=== PATIENT | female | born 1955 | race Caucasian/White ===

== ENCOUNTER 2025-08-23 13:35 | Emergency (ER) | payer MEDICARE, SELFPAY ==
[2025-08-23] VITALS (13 sets, daily range): BP systolic 151–175; BP diastolic 88–95; PULSE 76–92; RESP 12–20; TEMP 36.4; O2SAT 95–99
--- NOTE | ~2025-08-23 | CT_ITS ---
EXAMINATION: CT brain wo con DATE: 08/23/2025 15:22 INDICATION: Altered mental status TECHNIQUE: Computed tomography (CT) of the head was performed without intravenous contrast. Sagittal and coronal reconstructions were performed. The mA was adjusted according to patient size. Iterative reconstruction technique was employed. The dose-length product was 605.33 mGy-cm. COMPARISON: None FINDINGS: There are regions of decreased attenuation of the white matter which appears to spare the overlying patino matter consistent with vasogenic edema suspicious for underlying malignancy/metastatic disease in the right temporal lobe and left cerebellar hemisphere. There are some associated mass effect upon the right side of the fourth ventricle. There are couple additional small regions of white matter hypoattenuation in the bilateral frontal lobes which could represent additional vasogenic edema or sequela of chronic small vessel ischemic disease. No acute intracranial hemorrhage, acute infarction or abnormal extra axial fluid collection. The left and right lateral ventricles and third ventricle appear relatively enlarged and with convex peripheral margins when compared with the fourth ventricle and the sulci suggesting possible secondary obstructing hydrocephalus resulting from the left cerebellar mass effect. Although suspected, no clearly defined masses identified. The orbits, paranasal sinuses and mastoid air cells are normal. IMPRESSION: 1. Regions of likely vasogenic edema in the right temporal lobe and left cerebellar hemisphere which raises suspicion for underlying occult malignancy/ metastatic disease. Correlate for history of prior malignancy and recommend further evaluation with pre and postcontrast MRI or CT. 2. Mild enlargement of the left and right lateral and the third ventricles relative to the sulci and the fourth ventricle which appears small secondary to mass effect from the left cerebral hemisphere and is concerning for obstructive hydrocephalus. Consider neurosurgical consultation. This and the above findings and recommendation were discussed with Dr. Armstrong at 3:32 PM. Reviewed, dictated and finalized at location A. IMPRESSION: 1. Regions of likely vasogenic edema in the right temporal lobe and left cerebe llar hemisphere which raises suspicion for underlying occult malignancy/ metast atic disease. Correlate for history of prior malignancy and recommend further e valuation with pre and postcontrast MRI or CT. 2. Mild enlargement of the left and right lateral and the third ventricles rela tive to the sulci and the fourth ventricle which appears small secondary to mas s effect from the left cerebral hemisphere and is concerning for obstructive hy drocephalus. Consider neurosurgical consultation. This and the above findings a nd recommendation were discussed with Dr. Armstrong at 3:32 PM.
--- NOTE | 2025-08-23 14:58 | ECG_ITS ---
Test Date: 2025-08-23 16:16:21 Measurements Intervals [place] Rate: 78 P: 24 PA: 131 QRS: -12 QRSD: 84 T: 33 QT: 339 QTc: 388 Interpretive Statements SINUS RHYTHM NONSPECIFIC T-WAVE ABNORMALITY No previous ECG available for comparison Electronically Signed On 08-23-2025 16:58:53 CDT by Mk Crane M.D.
[2025-08-23 15:09] LABS: Hematocrit 46.0 % (37.0-47.0); Hemoglobin 15.5 g/dL (12.0-15.0); Immature Granulocyte Percent A 0.3 % (0-0.5); Lymphocytes Absolute Auto 1.70 K/mm3 (0.9-3.2); Mean Corpuscular HGB Conc 33.7 g/dl (32-36); Mean Corpuscular Hemoglobin 30.6 pg (26-34); Mean Corpuscular Volume 90.7 fl (80-100); Nucleated Red Blood Cells Absolute Auto 0.000 K/mm3 (0.0-0.012); Nucleated Red Blood Cells Perc 0.0 % (0.0-0.2); Platelet Count Result 275 k/mm3 (150-375); Red Blood Count 5.07 M/mm3 (4.2-5.4); White Blood Count 11.4 K/mm3 (4.5-10.0)
[2025-08-23 15:17] LABS: Alanine Aminotransferase 19 U/L (6-35); Albumin Level 4.5 g/dL (3.5-5.1); Alkaline Phosphatase 102 U/L (38-126); Anion Gap 12 mmol/L (4-12); Aspartate Amino Transferase 21 U/L (14-36); Bilirubin,Total 1.1 mg/dL (0.2-1.3); Blood Urea Nitrogen 23 mg/dL (7-17); Calcium 9.3 mg/dL (8.4-10.2); Carbon Dioxide 27 mmol/L (22-30); Chloride 103 mmol/L (98-107); Estimated Glomerular Filt Rate > 60; Glucose 111 mg/dL (65-110); Potassium 3.8 mmol/L (3.4-5.0); Sodium 142 mmol/L (137-145); Total Protein 8.4 g/dL (6.3-8.2)
--- NOTE | 2025-08-23 15:19 | ED_ITS ---
HPI - Altered Mental Status General Chief Complaint: Altered Mental Status Stated Complaint: confused Time Seen by Provider: 08/23/25 14:42 Source: patient and family Mode of arrival: wheelchair Limitations: no limitations History of Present Illness HPI narrative: This is a 69-year-old female with no significant past medical history presents to the ED with family for concerns for altered mental status. Patient states that this morning at around 10:00 a.m., and she became dizzy and lost her balance a couple times. Per family, they report that they were told by neighbor that the patient fell in the yd and she was stumbling around unable to keep her balance. The decision was made at that time to bring the patient to the ED. patient reports she has been confused since this started. She has not seen a physician in several years and takes no medications. Denies drug use, alcohol use. No recent illnesses. Denies dysuria, hematuria, abdominal pain, fevers, chills. She is a nonsmoker. Related Data Allergies Allergy/AdvReac Type Severity Reaction Status Date / Time No Known Allergies Allergy Verified 08/23/25 13:44 Review of Systems 2 Review of Systems: Gen.: Denies fevers or chills Eyes: Denies eye pain or visual change ENT: Denies congestion Respiratory: Denies shortness of breath or cough CV: Denies chest pain or palpitations GI: Denies abdominal pain nausea, emesis or diarrhea denies burning, urgency, frequency or hematuria Musculoskeletal: Denies back pain or muscle pain Neuro: As per HPI Skin: Denies rash Except as documented, all other systems reviewed and negative Exam 2 Narrative: APPEARANCE: No acute distress, nontoxic, resting in bed EYES: EOMI HEENT: Normocephalic, atraumatic, OMM RESPIRATORY: No respiratory distress Clear to auscultation bilaterally with no rhonchi wheezing or rales. CARDIOVASCULAR: Regular rate and rhythm without murmurs rubs or gallops. ABDOMINAL: Soft, nontender, nondistended, no rebound or guarding MUSCULOSKELETAl: Moves all extremities. No clubbing, cyanosis or edema. NEURO: Awake and alert. Following commands, speech normal, no focal deficits. NIHSS 0 SKIN:: Warm, dry. No rashes lesions or abrasions PSYCHIATRIC: Normal affect/mood, Course Vital Signs Vital signs: Vital Signs Temperature 97.5 F L 08/23/25 13:40 Pulse Rate 92 08/23/25 13:40 Respiratory Rate 16 08/23/25 13:40 Blood Pressure 151/95 H 08/23/25 13:40 Pulse Oximetry 97 08/23/25 13:40 Oxygen Delivery Room Air 08/23/25 13:40 Temperature 97.5 F L 08/23/25 13:40 Pulse Rate 76 08/23/25 17:07 Respiratory Rate 14 08/23/25 17:07 Blood Pressure 165/92 H 08/23/25 17:07 Pulse Oximetry 99 08/23/25 17:07 Oxygen Delivery Room Air 08/23/25 14:44 MDM - Altered Mental Status MDM Narrative Medical decision making narrative: 69-year-old female with no significant past medical history presenting for dizziness and falls. On initial evaluation, patient was in no acute distress, afebrile, hemodynamically stable. She reportedly A/O x2 on initial arrival but was A/O x4 on my evaluation. She had no focal deficits. She had a mild leukocytosis at 11.4. CMP without significant abnormalities. COVID/flu/RSV negative. CT head showed concerns for metastases to the left cerebellar hemisphere with vasogenic edema to the left cerebellum and the right temporal lobe as well as concerns for obstructive hydrocephalus. Patient was given 10 mg of Decadron. I did discuss the case with Dr. Andujar, neurosurgery, does recommend transfer for urgent intervention. I discussed the case with Neurosurgery at [facility], Dr. Engel will accept the patient in the ED to ED transfer. I also discussed the case with Dr. Kim, , also accept the patient. Discussed with family and they are agreeable to this plan. The patient transferred in a stable condition. CRITICAL CARE Indication: Time type: intermittent I provided a total of 55 minutes of critical care excluding separately billable procedures. This includes time w/ EMS, initial bedside evaluation, reviewing old records, review of testing done while under my care, discussion w/ the family, nurses, transformation consultant and guiding the patient?s care while in the emergency department. Differential Diagnosis Differential diagnosis: Likely other (CVA, cancer, NPH, UTI) Medical Records Attestation: I reviewed the patient's medical records. Lab Data Attestation: I reviewed the patient's lab results. 08/23/25 15:01 08/23/25 15:01 Labs: Lab Results 08/23/25 Range/Units 15:01 WBC 11.4 H (4.5-10.0) K/mm3 RBC 5.07 (4.2-5.4) M/mm3 Hgb 15.5 H (12.0-15.0) g/dL Hct 46.0 (37.0-47.0) % MCV 90.7 (80-100) fl MCH 30.6 (26-34) pg MCHC 33.7 (32-36) g/dl RDW 12.2 (11.5-14.5) % Plt Count 275 (150-375) k/mm3 MPV 9.1 (7.4-10.4) fl Immature Gran % (Auto) 0.3 (0-0.5) % Neut % (Auto) 76.3 H (45.5-73.1) % Lymph % (Auto) 14.9 L (18.3-44.2) % Keith % (Auto) 7.9 (2.6-8.5) % Eos % (Auto) 0.3 (0-4.4) % Baso % (Auto) 0.3 (0.2-1.2) % Lymph # (Auto) 1.70 (0.9-3.2) K/mm3 Keith # (Auto) 0.9 H (0.1-0.6) K/mm3 Eos # (Auto) 0.0 (0-0.3) K/mm3 Baso # (Auto) 0.0 (0.0-0.1) K/mm3 Abs Immat Gran (auto) 0.04 H (0.00-0.031) K/mm3 Absolute Neuts (auto) 8.7 H (1.3-6.7) K/mm3 Absolute Nucleated RBC 0.000 (0.0-0.012) K/mm3 Nucleated RBC % 0.0 (0.0-0.2) % PT 14.8 H (11.1-14.7) Seconds INR 1.2 APTT 28.5 (22.3-36.8) Seconds Sodium 142 (137-145) mmol/L Potassium 3.8 (3.4-5.0) mmol/L Chloride 103 (98-107) mmol/L Carbon Dioxide 27 (22-30) mmol/L Anion Gap 12 (4-12) mmol/L BUN 23 H (7-17) mg/dL Creatinine 0.77 (0.7-1.0) mg/dL Estim Creat Clear Calc Not Reportable Estimated GFR > 60 (59 - ) Glucose 111 H (65-110) mg/dL Calcium 9.3 (8.4-10.2) mg/dL Total Bilirubin 1.1 (0.2-1.3) mg/dL AST 21 (14-36) U/L ALT 19 (6-35) U/L Alkaline Phosphatase 102 (38-126) U/L Total Protein 8.4 H (6.3-8.2) g/dL Albumin 4.5 (3.5-5.1) g/dL Influenza A (RT-PCR) Negative (Negative) Influenza B (RT-PCR) Negative (Negative) RSV (RT-PCR) Negative (Negative) SARS-CoV-2 RNA (RT-PCR) Negative (Negative) Imaging Data Attestation: I personally reviewed and interpreted this imaging study as follows: (CT head: There is hypoattenuation to the right temporal lobe in the periventricular region that could represent ischemic stroke versus old hemorrhagic stroke) ECG Data EKG #1: Attestation: I personally reviewed and interpreted this ECG as follows: ECG completion date: 08/23/25 ECG completion time: 16:16 Prior ECG tracings: not available for review Interpretation: Normal sinus rhythm rate 78, normal axis, normal intervals, nonspecific T-wave change, no ST changes Discharge Plan Discharge Clinical Impression: Metastasis to brain, Vasogenic brain edema, Acquired obstructive hydrocephalus Patient Disposition: Acute Care Hospital Condition: Critical Patient Language: Turkmen Follow-up/Referrals: PHYSICIAN,CHILD NUTRITION ASSISTANT [Primary Care Provider, Internal Medicine]
[2025-08-23 15:21] LABS: INR 1.2; Prothrombin Time 14.8 Seconds (11.1-14.7)
[2025-08-23 15:22] LABS: Partial Thromboplastin Time 28.5 Seconds (22.3-36.8)
[2025-08-23 15:44] LABS: Influenza A QL RT-PCR Negative (Negative); Influenza B QL RT-PCR Negative (Negative); RSV RNA, RT-PCR Negative (Negative); SARS-CoV-2 RNA PCR Negative (Negative)
[2025-08-23] MEDS: dexAMETHasone SOD PHOS INJ 10 MG/ML 1 ML VIAL IV PUSH (16:01)
--- NOTE | 2025-08-23 16:06 | PC.NURSE ---
Addendum entered by Isa Santos RN 08/23/25 16:15: Continued--that I slowly started to go down and was reaching for stuff. Patient was placed on bedpan after being assisted back to stretcher by staff. Not witnessed by this RN. Bed alarm placed under patient. Patient denies any complaints No injuries noted. Original Note: This RN told by tech/chargeback specialist and patient sister. Sister went to tell chargeback specialist that patient was at the end of her bed and needed to go to the bathroom. (bed was in low position - side rails were up and patient had yellow tag on armband. Tech Desiree was on way to patient-patient told her that she was able to wlk so she was stand by assist-patient got to doorway and became unsteady and fell- patient landed on a backpack that was sitting on the floor-patient did not strike her head or any part of body. Patient reports that '
== END 2025-08-23 17:35 | disposition short-term general hospital (02) ==
PROVIDERS: Emergency Provider Student in an Organized Health Care Education/Training Program
DX: C79.31 Secondary malignant neoplasm of brain (principal); G91.1 Obstructive hydrocephalus; G93.6 Cerebral edema; Z20.822 Contact with and (suspected) exposure to COVID-19; R94.31 Abnormal electrocardiogram [ECG] [EKG]
CPT/HCPCS: 36415; 70450; 80053; 85025; 85610; 85730; 87637; 93005; 96374; 99284; 99285; J1100

== ENCOUNTER 2025-09-21 10:18 | Emergency (ER) | payer MEDICARE, SELFPAY ==
--- NOTE | ~2025-09-21 | CT_ITS ---
EXAMINATION: CT brain wo con, 09/21/2025 10:40 CDT HISTORY: fall COMPARISON: Comparison 08/23/2025 Technique: Axial images obtained of the brain without contrast. One or more of the following dose reduction techniques were used: automated exposure control, adjustment of the mA and/or kV according to patient size, use of iterative reconstruction technique. Findings: There is a large area of vasogenic edema noted involving the left cerebellum with extension into the cerebellar vermis and the right cerebellum with intra- axial lesion, there is mass effect upon the midbrain and medulla with near complete effacement of the fourth ventricle. No hydrocephalus. No acute arterial infarct.Right-sided craniotomy changes are noted. Mastoid air cells unremarkable. Sinuses and orbits unremarkable. No acute fracture. No significant facial or scalp soft tissue swelling evident. No radiopaque foreign body is seen. Impression: Intra-axial lesion detailed above with mass effect. Contrast-enhanced MRI is recommended to assess. Findings appear slightly progressed compared to the previous study. Reviewed, dictated and finalized at location P. Impression: Intra-axial lesion detailed above with mass effect. Contrast-enhanced MRI is re commended to assess. Findings appear slightly progressed compared to the previo us study.
[2025-09-21 10:18] VITALS: TEMP 36.6
--- NOTE | 2025-09-21 10:30 | ECG_ITS ---
Test Date: 2025-09-21 10:30:36 Measurements Intervals [place] Rate: 96 P: 42 MT: 126 QRS: -2 QRSD: 78 T: 84 QT: 331 QTc: 419 Interpretive Statements SINUS RHYTHM LOW QRS VOLTAGE IN PRECORDIAL LEADS CANNOT R/O SEPTAL INFARCT, AGE INDETERMINATE CONSIDER INFERIOR INFARCT, AGE INDETERMINATE NONSPECIFIC T-WAVE ABNORMALITY- HIGH LATERAL LEADS BASELINE ARTIFACT- V4 ABNORMAL ECG Compared to ECG 08/23/2025 16:16:21 NO SIGNIFICANT CHANGE Electronically Signed On 09-21-2025 13:16:30 CDT by Oren Ca D.O.
[2025-09-21 11:21] LABS: Add Urine Microscopic? YES; Appearance Urine Clear (Clear); Glucose Urine UA Negative (Negative); Leukocyte Esterase Ur Negative LEU/UL (Negative); Nitrate Urine Negative (Negative); Non Pathogenic Casts 0-2; Specific Grav Ur 1.039 (1.001-1.035)
[2025-09-21 12:04] VITALS: BP 122/76; PULSE 98; RESP 19; O2SAT 97
[2025-09-21 12:05] LABS: Hematocrit 40.8 % (37.0-47.0); Hemoglobin 13.8 g/dL (12.0-15.0); Immature Granulocyte Percent A 0.9 % (0-0.5); Immature Platelet Fraction Pct 2.3 % (0.9-11.2); Lymphocytes Absolute Auto 1.16 K/mm3 (0.9-3.2); Mean Corpuscular HGB Conc 33.8 g/dl (32-36); Mean Corpuscular Hemoglobin 30.9 pg (26-34); Mean Corpuscular Volume 91.5 fl (80-100); Nucleated Red Blood Cells Absolute Auto 0.040 K/mm3 (0.0-0.012); Nucleated Red Blood Cells Perc 0.4 % (0.0-0.2); Platelet Count Result 327 k/mm3 (150-375); Red Blood Count 4.46 M/mm3 (4.2-5.4); White Blood Count 10.7 K/mm3 (4.5-10.0)
--- NOTE | 2025-09-21 12:35 | ECG_ITS ---
Test Date: 2025-09-21 12:35:20 Measurements Intervals [place] Rate: 163 P: 0 DC: 0 QRS: 22 QRSD: 75 T: 125 QT: 268 QTc: 441 Interpretive Statements ATRIAL FIBRILLATION WITH RAPID VENTRICULAR RESPONSE LOW QRS VOLTAGE IN PRECORDIAL LEADS CANNOT R/O SEPTAL INFARCT, AGE INDETERMINATE BORDERLINE ST-T WAVE ABNORMALITY- LAT/HIGH LAT LEADS BASELINE ARTIFACT- II, III, AVF ABNORMAL ECG Compared to ECG 09/21/2025 10:30:36 Sinus rhythm no longer present Electronically Signed On 09-21-2025 13:18:28 CDT by Oren Ca D.O.
--- NOTE | 2025-09-21 12:36 | PC.NURSE ---
lab needs redraw of green top - informed slab grinder
[2025-09-21 12:46] VITALS: PULSE 160
[2025-09-21] MEDS: METOPROLOL TARTRATE INJ 5 MG/5 ML VIAL IV PUSH (12:46)
[2025-09-21] MEDS: SODIUM CHLORIDE 0.9% IV 1,000 ML 150 ML IV CONT (12:47)
--- NOTE | 2025-09-21 12:55 | PC.NURSE ---
Pt quality assurance monitor showing HR in 160-180 range, EDP made aware, EKG obtained showing pt in afib RVR. EDP placed new med orders on chart, ordered medications administered and primary RN made aware
[2025-09-21 13:30] LABS: Alanine Aminotransferase 255 U/L (6-35); Albumin Level 3.5 g/dL (3.5-5.1); Alkaline Phosphatase 106 U/L (38-126); Anion Gap 10 mmol/L (4-12); Aspartate Amino Transferase 199 U/L (14-36); Bilirubin,Total 1.4 mg/dL (0.2-1.3); Blood Urea Nitrogen 30 mg/dL (7-17); Calcium 8.5 mg/dL (8.4-10.2); Carbon Dioxide 24 mmol/L (22-30); Chloride 94 mmol/L (98-107); Estimated CRCL calculation 49 ml/min; Estimated Glomerular Filt Rate > 60; Glucose 124 mg/dL (65-110); Potassium 4.3 mmol/L (3.4-5.0); Sodium 128 mmol/L (137-145); Total Protein 6.3 g/dL (6.3-8.2)
--- NOTE | 2025-09-21 13:57 | ED_ITS ---
HPI - Fall General Chief Complaint: Fall Stated Complaint: fall Time Seen by Provider: 09/21/25 10:22 Source: patient and EMS Mode of arrival: EMS Limitations: clinical condition History of Present Illness HPI Narrative: 69-year-old with a history of metastatic lung cancer, Mets to her brain was brought in from snf with a complains of fall. As per the EMS and snf patient has been falling quite frequently. Upon arrival to the ER she is pleasant has no complaints. complaint: fall Fall from: standing Fall witnessed: yes, by living facility staff Place fall occurred: snf/SNF Prolonged down time: no Related Data Allergies Allergy/AdvReac Type Severity Reaction Status Date / Time No Known Allergies Allergy Verified 09/21/25 10:20 Review of Systems 2 Review of Systems: All systems reviewed & are unremarkable except as noted in HPI and below Constitutional: Constitutional: Reports no additional constitutional complaints Eyes: Eyes: Reports no additional eye complaints ENT: Reports system reviewed and no additional complaints, except as documented Cardiovascular: Cardiovascular: Reports no additional cardiovascular complaints Respiratory: Respiratory: Reports no additional respiratory complaints Gastrointestinal: Gastrointestinal: Reports no additional gastrointestinal complaints Musculoskeletal: Musculoskeletal: Reports no additional musculoskeletal complaints Neurologic: Reports as per HPI Exam 2 Narrative: GENERAL: ill-appearing, confused and in no acute distress. HEAD: Normocephalic, atraumatic. EYES: PERRLA and EOMI. ENT: Nares clear, no rhinorrhea or epistaxis. Mucous membranes moist. NECK: Supple. CHEST: Clear to auscultation. No respiratory distress. HEART: Regular rate and rhythm. No murmur heard. Normal peripheral pulses. ABDOMEN: Soft, nontender, nondistended, normal active bowel sounds. EXTREMITIES: Normal range of motion. No edema. SKIN: Warm, dry, no rash. NEURO: No focal deficits. Alert . PSYCH: pleasent. Course Course Emergency Course: Patient while she was here in the ER waiting for lab work, patient became tachycardic with heart rates in month 60s EKG was obtained which shows atrial fibrillation with RVR I did give her 5 mg of Lopressor converted back to normal sinus. I discussed in length about her workup with her sister Nila who is the POA .she prefers that she would be placed on Hospice contacted [facility] , pt will be enlolled to Hospice and she can be discharged to [facility] Vital Signs Vital signs: Vital Signs Temperature 36.6 C 09/21/25 10:18 Temperature 36.6 C 09/21/25 10:18 Pulse Rate 93 09/21/25 15:02 Respiratory Rate 12 09/21/25 15:02 Blood Pressure 103/73 09/21/25 15:02 Pulse Oximetry 97 09/21/25 15:02 MDM - Fall Differential Diagnosis Differential diagnosis: Likely syncope and concussion without loss of consciousness Medical Records Attestation: I reviewed the patient's medical records. Lab Data Attestation: I reviewed the patient's lab results. 09/21/25 11:50 09/21/25 12:54 Labs: Lab Results 09/21/25 09/21/25 09/21/25 Range/Units 11:13 11:50 12:54 WBC 10.7 H (4.5-10.0) K/mm3 RBC 4.46 (4.2-5.4) M/mm3 Hgb 13.8 (12.0-15.0) g/dL Hct 40.8 (37.0-47.0) % MCV 91.5 (80-100) fl MCH 30.9 (26-34) pg MCHC 33.8 (32-36) g/dl RDW 14.5 (11.5-14.5) % Plt Count 327 (150-375) k/mm3 MPV 9.1 (7.4-10.4) fl Immature Gran % (Auto) 0.9 H (0-0.5) % Neut % (Auto) 83.2 H (45.5-73.1) % Lymph % (Auto) 10.9 L (18.3-44.2) % [place] % (Auto) 4.8 (2.6-8.5) % Eos % (Auto) 0.0 (0-4.4) % Baso % (Auto) 0.2 (0.2-1.2) % Lymph # (Auto) 1.16 (0.9-3.2) K/mm3 [place] # (Auto) 0.5 (0.1-0.6) K/mm3 Eos # (Auto) 0.0 (0-0.3) K/mm3 Baso # (Auto) 0.0 (0.0-0.1) K/mm3 Abs Immat Gran (auto) 0.10 H (0.00-0.031) K/mm3 Absolute Neuts (auto) 8.9 H (1.3-6.7) K/mm3 Absolute Nucleated RBC 0.040 H (0.0-0.012) K/mm3 Nucleated RBC % 0.4 H (0.0-0.2) % % Immature Plt Fraction 2.3 (0.9-11.2) % Sodium 128 L (137-145) mmol/L Potassium 4.3 (3.4-5.0) mmol/L Chloride 94 L (98-107) mmol/L Carbon Dioxide 24 (22-30) mmol/L Anion Gap 10 (4-12) mmol/L BUN 30 H (7-17) mg/dL Creatinine 0.79 (0.7-1.0) mg/dL Estim Creat Clear Calc 49 ml/min Estimated GFR > 60 (59 - ) Glucose 124 H (65-110) mg/dL Calcium 8.5 (8.4-10.2) mg/dL Total Bilirubin 1.4 H (0.2-1.3) mg/dL AST 199 H (14-36) U/L ALT 255 H (6-35) U/L Alkaline Phosphatase 106 (38-126) U/L Troponin I < 0.012 (0.000-0.034) ng/mL Total Protein 6.3 (6.3-8.2) g/dL Albumin 3.5 (3.5-5.1) g/dL Urine Color Dark yellow (Yellow) Urine Appearance Clear (Clear) Urine pH 5.5 (5.0-9.0) Ur Specific Byron 1.039 H (1.001-1.035) Urine Protein 1+ H (Negative) mg/dL Urine Glucose (UA) Negative (Negative) mg/dL Urine Ketones 1+ H (Negative) mg/dL Ur Blood (Man) Negative (Negative) Urine Nitrate Negative (Negative) Urine Bilirubin 2+ H (Negative) Urine Urobilinogen 1.0 (<2.0) mg/dL Leukocyte Esterase Rfl Negative (Negative) FABIAN/UL Urine RBC 0-2 (0-2) /hpf Urine WBC 0-5 (0-3) /hpf Ur Squamous Epith Cells None seen (Few) /hpf Urine Bacteria None seen /hpf Urine Casts 0-2 Imaging Data Radiologist's impression: ITS Impressions Head CT 09/21/25 11:00 Impression: Intra-axial lesion detailed above with mass effect. Contrast-enhanced MRI is recommended to assess. Findings appear slightly progressed compared to the previous study. ECG Data EKG #1: ECG completion date: 09/21/25 ECG completion time: 10:30 EKG Interpretation: normal rate (96), no ectopy, no ST changes, normal QRS and normal QT EKG #2: ECG completion date: 09/21/25 ECG completion time: 12:35 EKG Interpretation: tachycardia (163), atrial fibrillation, no ectopy, no ST changes, normal QRS and normal QT Discharge Plan Discharge Clinical Impression: Multiple falls, Paroxysmal A-fib, Brain mass Patient Disposition: NH Senior Care/Asst Living Condition: Stable Instructions: Antibiotic Form Additional Instructions: continue home medications, Patient Language: Estonian Follow-up/Referrals: PHYSICIAN,SQL BI DEVELOPER [Primary Care Provider, Internal Medicine] Time of Disposition: 16:10
--- OUTSIDE RECORDS SUMMARY | 2025-09-21 14:33 | XMS_ITS | Encounter Summary ---
Author Organization [facility] Address [address] [place], [place] [address] [address] Care Team Providers Care Education Courses Sales Representative Name Role Phone Yris Rodriguez MD Primary Care Provider [phone] Reason for Visit * Reason Onset Date Comments Appointment 09/21/2025 Encounter Details Date Type Department Care Team (Late st Contact Info) Description 09/21/2025 Telephone [facility] - Pulmonology [address] [place] [address], [facility] [place] [id number] Sean Santos MD [address] [place] [address] INTERNAL MEDICINE [place], [place] [id number] Appointment Social History Tobacco Use Types Packs/Day Years Used Date Smoking Tobacco: Never Smokeless Tobacco: Never Alcohol Use Standard Drinks/Week Comments Not Currently 0 (1 standard drink = 0.6 oz pur e alcohol) AUDIT-C Answer Date Recorded Q1: How often do you have a drink containing alcohol? Never 08/24/2025 Q2: How many drinks containi ng alcohol do you have on a typical day when you are drinking? Patient does not drink Q3: How often do you have si x or more drinks on one occasion? Never 08/24/2025 Overall Financial Resource Strain (CARDIA) Answe r Date Recorded How hard is it for you to pa y for the very basics like food, housing, medical care, and heating? Not very hard 08/24/2025 [facility] [place] [facility] Occupat ional [facility] - Occupational Stress Questionnaire Answer Date Recorded Do you feel stress - tense, restless, nervous, or anxious, or unable to sleep at night because your mind is troubled all the time - these days? Not at all 08/24/2025 Hunger Vital Sign Answer Date Recorded Within the past 12 months, y ou worried that your food would run out before you got the money to buy more. Never true 08/24/20 25 Within the past 12 months, t he food you bought just didn't last and you didn't have money to get more. Never true 08/24/2025 PRAPARE - Transportation Answer Date Re corded In the past 12 months, has l ack of transportation kept you from medical appointments or from getting medications? No 11/2024 In the past 12 months, has l ack of transportation kept you from meetings, work, or from getting things needed for daily living? No 08/24/2025 Housing Stability Vital Sign Answer Te e Recorded In the last 12 months, was t here a time when you were not able to pay the mortgage or rent on time? No 08/24/2025 In the past 12 months, how m any times have you moved where you were living? 0 08/24/2025 At any time in the past 12 m [facility], were you homeless or living in a halfway (including now)? No 08/24/2025 Comments No Sex and Gender Information Value Date Recorded Sex Assigned at Not on file Legal Sex Female 4:57 PM CDT Gender Identity Not on file Sexual Orientation Not on file documented as of this encounter Functional Status * Is person deaf or have serious hearing difficulty? Answer Date of Assessment Author No 08/24/2025 1:07 AM ALEISHAT Brisa Larios RN * Is person blind or have serious difficulty seeing? Answer Date of Assessment Author No 08/24/2025 1:07 AM CDT Brisa Larios RN * Does person have serious difficulty walking/climbing stairs? Answer Date of Assessment Author No 08/24/2025 1:07 AM ALEISHAT Brisa Larios RN * Does person have difficulty dressing/bathing? Answer Date of Assessment Author No 08/24/2025 1:07 AM ALEISHAT Brisa Larios RN * Does person have difficulty doing errands alone? Answer Date of Assessment Author No 08/24/2025 1:07 AM CDT Brisa Larios RN documented as of this encounter Mental Status * Does person have difficulty concentrating/remembering/making decisions? Answer Entry Date Author No 08/24/2025 1:07 AM CDT Brisa Larios RN documented in this encounter Miscellaneous Notes * Telephone Encounter - Araceli Corona - 09/21/2025 9:37 AM CDT Current Provider: Sean Santos Reason for Call: Janae transportation aid at [facility] request for reschedule apt. Next available is January,. Declined apt, request for call back. Patient Call Back Number: [phone] documented in this encounter Plan of Treatment Upcoming Encounters Date Type Department Care Team (Late st Contact Info) Description 10/24/2025 4:[address] [employer]MS Office Visit [facility] - Pulmonology [address] [place] [address], [place] [address] Sean Santos MD [address] [place] [address] [address] [facility] [place] [address] documented as of this encounter Visit Diagnoses Not on filedocumented in this encounter Care Teams Education Courses Sales Representative Relationship Specialty Start Date End Date Yris Rodriguez MD [address] [place] [address] [place] [id number] PCP - General Internal Medicine 09/21/25 documented as of this encounter
--- OUTSIDE RECORDS SUMMARY | 2025-09-21 14:33 | XMS_ITS | Clinical Summary ---
Author Organization [facility] [employer] Address [address] [place] [address] Care Team Providers Care Advertising Project Manager Name Role Phone Yris Rodriguez MD Primary Care Provider [phone] Source Comments [facility] [employer],non-owned Affiliates and Associated Physician Practices is amultiple site organization consisting of ambulatory clinics and hospital sitesin [place], [place], [place] and [place]. This disclosure is being madepursuant to the Care Everywhere program and may not contain all information available regarding this patient. Last updated 18.[facility] [employer] Allergies No known active allergies Medications * Be aware that medications may not be up to date on this document. Alwaysverify current medications with the patient. 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 09/07/20 25 Active LORazepam (Ativan) 0.5 MG tablet Take 1 (one) tablet by mouth every 4 hours as needed for Agitation or Anxiety (restlessness) 09/07/20 Active dexAMETHasone (Decadron) 4 MG tablet Take 1 (one) tablet by mouth 2 times daily for 7 days, THEN 1 (one) tablet once daily for 7 days. 09/07/20 25 Active polyethylene glycol 3350 (Miralax) 17 g packet Take 17 (seventeen) g by mouth once daily as needed for Constipation 09/07/20 Active senna (Senokot) 8.6 MG tablet Take 1 (one) tablet by mouth 2 times daily 09/07/20 Active melatonin 3 MG tablet Take 1 (one) tablet by mouth nightly as needed for Insomnia 09/07/20 Active levETIRAcetam (Keppra) 500 MG tablet Take 1 (one) tablet by mouth 2 times daily 09/07/20 Active levETIRAcetam (Keppra) 500 MG tablet Take 1 (one) tablet by mouth 2 times daily 09/07/202024 Discontinued levETIRAcetam (Keppra) 500 MG tablet Take 1 (one) tablet by mouth 2 times daily 09/07/202024 Discontinued(L ist Clean-Up) Active Problems Problem Noted Date Diagnosed Date Altered mental status 09/02/2025 Assessment & Plan (09/07/2025 11:37 AM CDT): - originally presented for 1 week of frequent falls/unsteady gait, nausea, dizziness w/ ambulation - CT scan showed left cerebellar edema and right temporal edema concerning for metastases. MRI demonstrates multiple scattered lesions. CT CAP showing 3.7cm lung nodule w multiple other nodules and LAD concerning for metastatic disease. 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 Was briefly admitted to [facility] for post-op monitoring - s/p EBUS on 08/31 w/ pulm - path resulted as NSCLC Plan: - Comfort care -Lorazapam 0.5mg q4hr prn for angiety, agitation -oxy 2.5mg q4hr prn for moderate and severe pain -tylenol 650 q4hr prn for mild pain - Continue decadron 4mg BID for 7 days (until 09/13/25) followed by 4mg daily until 09/20/25. - continue Keppra 500mg BID for 2 weeks (EOT 09/13/25) Assessment & Plan (09/06/2025 3:07 PM CDT): - originally presented for 1 week of frequent falls/unsteady gait, nausea, dizziness w/ ambulation - CT scan showed left cerebellar edema and right temporal edema concerning for metastases. MRI demonstrates multiple scattered lesions. CT CAP showing 3.7cm lung nodule w multiple other nodules and LAD concerning for metastatic disease. 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 Was briefly admitted to [facility] for post-op monitoring - s/p EBUS on 08/31 w/ pulm - path resulted as NSCLC Plan: - Comfort care - Lorazapam 0.5mg q4hr prn for angiety, agitation -oxy 2.5mg q4hr prn for moderate and severe pain -tylenol 650 q4hr prn for mild pain - continue Decadron 4mg q6h - continue Keppra 500mg BID - pending hospice facility. Assessment & Plan (09/05/2025 4:58 PM CDT): - originally presented for 1 week of frequent falls/unsteady gait, nausea, dizziness w/ ambulation - CT scan showed left cerebellar edema and right temporal edema concerning for metastases. MRI demonstrates multiple scattered lesions. CT CAP showing 3.7cm lung nodule w multiple other nodules and LAD concerning for metastatic disease. 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 Was briefly admitted to [facility] for post-op monitoring - s/p EBUS on 08/31 w/ pulm - path resulted as NSCLC Plan: - Rad Onc rec hospice; does not rec whole brain RT given poor prognosis iso metastatic disease w/ innumerable brain lesions - consulted palliative care, appreciate assistance w/ GOC discussions. Will see on Friday - heme/onc following, appreciate recs - pulm s/o; f/u in pulm clinic within 1 mo - continue Decadron 4mg q6h + PPI for ppx - continue Keppra 500mg BID - Will work with Social work for setting up hospice in [facility] in [place], [place]. - per GOC with Nila, she agrees to starting comfort measures while inpatient - Will start low dose oxy and benzo prn Assessment & Plan (09/04/2025 11:23 AM CDT): - originally presented for 1 week of frequent falls/unsteady gait, nausea, dizziness w/ ambulation - CT scan showed left cerebellar edema and right temporal edema concerning for metastases. MRI demonstrates multiple scattered lesions. CT CAP showing 3.7cm lung nodule w multiple other nodules and LAD concerning for metastatic disease. 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 Was briefly admitted to [facility] for post-op monitoring - s/p EBUS on 08/31 w/ pulm - path resulted as NSCLC Plan: - Rad Onc rec hospice; does not rec whole brain RT given poor prognosis iso metastatic disease w/ innumerable brain lesions - consulted palliative care, appreciate assistance w/ GOC discussions. Will see on Friday - heme/onc following, appreciate recs - pulm s/o; f/u in pulm clinic within 1 mo - continue Decadron 4mg q6h + PPI for ppx - continue Keppra 500mg BID - continue q4 hours neurological checks - PT/OT rec acute rehab; likely poor benefit iso metastatic disease. Will discuss - fall precautions, delirium precautions - neurological checks Q4H Assessment & Plan (09/03/2025 12:50 PM CDT): - originally presented for 1 week of frequent falls/unsteady gait, nausea, dizziness w/ ambulation - CT scan showed left cerebellar edema and right temporal edema concerning for metastases. MRI demonstrates multiple scattered lesions. CT CAP showing 3.7cm lung nodule w multiple other nodules and LAD concerning for metastatic disease. 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 Was briefly admitted to [facility] for post-op monitoring - s/p EBUS on 08/31 w/ pulm - path resulted as NSCLC Plan: - Rad Onc rec hospice; does not rec whole brain RT given poor prognosis iso metastatic disease w/ innumerable brain lesions - consulted palliative care, appreciate assistance w/ GOC discussions. Will see on Friday - heme/onc following, appreciate recs - pulm s/o; f/u in pulm clinic within 1 mo - continue Decadron 4mg q6h + PPI for ppx - continue Keppra 500mg BID - continue q4 hours neurological checks - PT/OT rec acute rehab; likely poor benefit iso metastatic disease. Will discuss - fall precautions, delirium precautions - neurological checks Q4H Assessment & Plan (09/02/2025 3:15 PM CDT): - originally presented for 1 week of frequent falls/unsteady gait, nausea, dizziness w/ ambulation - CT scan showed left cerebellar edema and right temporal edema concerning for metastases. MRI demonstrates multiple scattered lesions. CT CAP showing 3.7cm lung nodule w multiple other nodules and LAD concerning for metastatic disease. 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 Was briefly admitted to [facility] for post-op monitoring - s/p EBUS on 08/31 w/ pulm - path resulted as NSCLC Plan: - Rad Onc rec hospice; does not rec whole brain RT given poor prognosis iso metastatic disease w/ innumerable brain lesions - consulted palliative care, appreciate assistance w/ GOC discussions. Will see on Friday - heme/onc following, appreciate recs - pulm s/o; f/u in pulm clinic within 1 mo - continue Decadron 4mg q6h + PPI for ppx - continue Keppra 500mg BID - continue q4 hours neurological checks - PT/OT rec acute rehab; likely poor benefit iso metastatic disease. Will discuss - d/c restraints - fall precautions, delirium precautions - neurological checks Q4H Pulmonary nodule 1 cm or greater in diameter 05/2025 Assessment & Plan (09/07/2025 11:37 AM CDT): - originally presented for 1 week of frequent falls/unsteady gait, nausea, dizziness w/ ambulation - CT scan showed left cerebellar edema and right temporal edema concerning for metastases. MRI demonstrates multiple scattered lesions. CT CAP showing 3.7cm lung nodule w multiple other nodules and LAD concerning for metastatic disease. 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 Was briefly admitted to [facility] for post-op monitoring - s/p EBUS on 08/31 w/ pulm - path resulted as NSCLC Plan: - Comfort care -Lorazapam 0.5mg q4hr prn for angiety, agitation -oxy 2.5mg q4hr prn for moderate and severe pain -tylenol 650 q4hr prn for mild pain - Continue decadron 4mg BID for 7 days (until 09/13/25) followed by 4mg daily until 09/20/25. - continue Keppra 500mg BID for 2 weeks (EOT 09/13/25) Assessment & Plan (09/06/2025 3:07 PM CDT): - originally presented for 1 week of frequent falls/unsteady gait, nausea, dizziness w/ ambulation - CT scan showed left cerebellar edema and right temporal edema concerning for metastases. MRI demonstrates multiple scattered lesions. CT CAP showing 3.7cm lung nodule w multiple other nodules and LAD concerning for metastatic disease. 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 Was briefly admitted to [facility] for post-op monitoring - s/p EBUS on 08/31 w/ pulm - path resulted as NSCLC Plan: - Comfort care - Lorazapam 0.5mg q4hr prn for angiety, agitation -oxy 2.5mg q4hr prn for moderate and severe pain -tylenol 650 q4hr prn for mild pain - continue Decadron 4mg q6h - continue Keppra 500mg BID - pending hospice facility. Assessment & Plan (09/05/2025 4:58 PM CDT): - originally presented for 1 week of frequent falls/unsteady gait, nausea, dizziness w/ ambulation - CT scan showed left cerebellar edema and right temporal edema concerning for metastases. MRI demonstrates multiple scattered lesions. CT CAP showing 3.7cm lung nodule w multiple other nodules and LAD concerning for metastatic disease. 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 Was briefly admitted to [facility] for post-op monitoring - s/p EBUS on 08/31 w/ pulm - path resulted as NSCLC Plan: - Rad Onc rec hospice; does not rec whole brain RT given poor prognosis iso metastatic disease w/ innumerable brain lesions - consulted palliative care, appreciate assistance w/ GOC discussions. Will see on Friday - heme/onc following, appreciate recs - pulm s/o; f/u in pulm clinic within 1 mo - continue Decadron 4mg q6h + PPI for ppx - continue Keppra 500mg BID - Will work with Social work for setting up hospice in [facility] in [place], [place]. - per GOC with Nila, she agrees to starting comfort measures while inpatient - Will start low dose oxy and benzo prn Assessment & Plan (09/04/2025 11:23 AM CDT): - originally presented for 1 week of frequent falls/unsteady gait, nausea, dizziness w/ ambulation - CT scan showed left cerebellar edema and right temporal edema concerning for metastases. MRI demonstrates multiple scattered lesions. CT CAP showing 3.7cm lung nodule w multiple other nodules and LAD concerning for metastatic disease. 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 Was briefly admitted to [facility] for post-op monitoring - s/p EBUS on 08/31 w/ pulm - path resulted as NSCLC Plan: - Rad Onc rec hospice; does not rec whole brain RT given poor prognosis iso metastatic disease w/ innumerable brain lesions - consulted palliative care, appreciate assistance w/ GOC discussions. Will see on Friday - heme/onc following, appreciate recs - pulm s/o; f/u in pulm clinic within 1 mo - continue Decadron 4mg q6h + PPI for ppx - continue Keppra 500mg BID - continue q4 hours neurological checks - PT/OT rec acute rehab; likely poor benefit iso metastatic disease. Will discuss - fall precautions, delirium precautions - neurological checks Q4H Assessment & Plan (09/03/2025 12:50 PM CDT): - originally presented for 1 week of frequent falls/unsteady gait, nausea, dizziness w/ ambulation - CT scan showed left cerebellar edema and right temporal edema concerning for metastases. MRI demonstrates multiple scattered lesions. CT CAP showing 3.7cm lung nodule w multiple other nodules and LAD concerning for metastatic disease. 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 Was briefly admitted to [facility] for post-op monitoring - s/p EBUS on 08/31 w/ pulm - path resulted as NSCLC Plan: - Rad Onc rec hospice; does not rec whole brain RT given poor prognosis iso metastatic disease w/ innumerable brain lesions - consulted palliative care, appreciate assistance w/ GOC discussions. Will see on Friday - heme/onc following, appreciate recs - pulm s/o; f/u in pulm clinic within 1 mo - continue Decadron 4mg q6h + PPI for ppx - continue Keppra 500mg BID - continue q4 hours neurological checks - PT/OT rec acute rehab; likely poor benefit iso metastatic disease. Will discuss - fall precautions, delirium precautions - neurological checks Q4H Assessment & Plan (09/02/2025 3:15 PM CDT): - originally presented for 1 week of frequent falls/unsteady gait, nausea, dizziness w/ ambulation - CT scan showed left cerebellar edema and right temporal edema concerning for metastases. MRI demonstrates multiple scattered lesions. CT CAP showing 3.7cm lung nodule w multiple other nodules and LAD concerning for metastatic disease. 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 Was briefly admitted to [facility] for post-op monitoring - s/p EBUS on 08/31 w/ pulm - path resulted as NSCLC Plan: - Rad Onc rec hospice; does not rec whole brain RT given poor prognosis iso metastatic disease w/ innumerable brain lesions - consulted palliative care, appreciate assistance w/ GOC discussions. Will see on Friday - heme/onc following, appreciate recs - pulm s/o; f/u in pulm clinic within 1 mo - continue Decadron 4mg q6h + PPI for ppx - continue Keppra 500mg BID - continue q4 hours neurological checks - PT/OT rec acute rehab; likely poor benefit iso metastatic disease. Will discuss - d/c restraints - fall precautions, delirium precautions - neurological checks Q4H Assessment & Plan (09/01/2025 10:20 AM CDT): -Pulm EBUS 08/31 -F/u Path then discuss w/ H/O Assessment & Plan (08/31/2025 9:19 AM CDT): -Pulm scheduled for EBUS 08/31 -NPO currently Assessment & Plan (08/30/2025 10:07 PM CDT): Pulm scheduled for EBUS 08/31 NPO at midnight Fluid in endometrial cavity 08/30/2025 Assessment & Plan (09/07/2025 11:37 AM CDT): Plan: - Comfort care Assessment & Plan (09/06/2025 3:07 PM CDT): Plan: - Comfort care Assessment & Plan (09/05/2025 4:58 PM CDT): - Seen on CT chest abdomen pelvis 08/23 - Pelvic US: limited exam due to unfilled bladder and patient unable to tolerate transvaginal exam due to pain Plan: - Comfort care Assessment & Plan (09/04/2025 11:23 AM CDT): - Seen on CT chest abdomen pelvis 08/23 - Pelvic US: limited exam due to unfilled bladder and patient unable to tolerate transvaginal exam due to pain Plan: - depending on GOC and US results, may consider OBGYN c/s vs OP f/u if indicated Assessment & Plan (09/03/2025 12:50 PM CDT): - Seen on CT chest abdomen pelvis 08/23 - Pelvic US: limited exam due to unfilled bladder and patient unable to tolerate transvaginal exam due to pain Plan: - depending on GOC and US results, may consider OBGYN c/s vs OP f/u if indicated Assessment & Plan (09/02/2025 3:08 PM CDT): - Seen on CT chest abdomen pelvis 08/23 Plan: - f/u pelvic US - depending on GOC and US results, may consider OBGYN c/s Assessment & Plan (09/01/2025 10:20 AM CDT): Seen on CT chest abdomen pelvis 08/23 Following EBUS, recommend pot annealer consultation this hospitalization, will check pelvic U/S first Assessment & Plan (08/31/2025 9:19 AM CDT): Seen on CT chest abdomen pelvis 08/23 Following EBUS, recommend pot annealer consultation this hospitalization, will check pelvic U/S first Assessment & Plan (08/30/2025 10:07 PM CDT): Seen on CT chest abdomen pelvis 08/23 Following EBUS, recommend pot annealer consultation this hospitalization Leukocytosis 08/30/2025 Assessment & Plan (09/07/2025 11:37 AM CDT): -Yoselin from steroid. Assessment & Plan (09/06/2025 3:07 PM CDT): -oYselin from steroid. Assessment & Plan (09/05/2025 4:58 PM CDT): - Likely steroid induced Plan: - continue to monitor for signs of infection Assessment & Plan (09/04/2025 11:23 AM CDT): - Likely steroid induced Plan: - continue to monitor for signs of infection Assessment & Plan (09/03/2025 12:50 PM CDT): - Likely steroid induced Plan: - continue to monitor for signs of infection Assessment & Plan (09/02/2025 3:08 PM CDT): - Likely steroid induced Plan: - continue to monitor for signs of infection Assessment & Plan (09/01/2025 10:20 AM CDT): Likely steroid induced continue to monitor no signs of infection Assessment & Plan (08/31/2025 9:19 AM CDT): Likely steroid induced continue to monitor no signs of infection Assessment & Plan (08/30/2025 10:07 PM CDT): Likely steroid induced continue to monitor no signs of infection At high risk for falls 08/29/2025 Assessment & Plan (09/07/2025 11:37 AM CDT): - originally presented for 1 week of frequent falls/unsteady gait, nausea, dizziness w/ ambulation - CT scan showed left cerebellar edema and right temporal edema concerning for metastases. MRI demonstrates multiple scattered lesions. CT CAP showing 3.7cm lung nodule w multiple other nodules and LAD concerning for metastatic disease. 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 Was briefly admitted to [facility] for post-op monitoring - s/p EBUS on 08/31 w/ pulm - path resulted as NSCLC Plan: - Comfort care -Lorazapam 0.5mg q4hr prn for angiety, agitation -oxy 2.5mg q4hr prn for moderate and severe pain -tylenol 650 q4hr prn for mild pain - Continue decadron 4mg BID for 7 days (until 09/13/25) followed by 4mg daily until 09/20/25. - continue Keppra 500mg BID for 2 weeks (EOT 09/13/25) Assessment & Plan (09/06/2025 3:07 PM CDT): - originally presented for 1 week of frequent falls/unsteady gait, nausea, dizziness w/ ambulation - CT scan showed left cerebellar edema and right temporal edema concerning for metastases. MRI demonstrates multiple scattered lesions. CT CAP showing 3.7cm lung nodule w multiple other nodules and LAD concerning for metastatic disease. 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 Was briefly admitted to [facility] for post-op monitoring - s/p EBUS on 08/31 w/ pulm - path resulted as NSCLC Plan: - Comfort care - Lorazapam 0.5mg q4hr prn for angiety, agitation -oxy 2.5mg q4hr prn for moderate and severe pain -tylenol 650 q4hr prn for mild pain - continue Decadron 4mg q6h - continue Keppra 500mg BID - pending hospice facility. Assessment & Plan (09/05/2025 4:58 PM CDT): - originally presented for 1 week of frequent falls/unsteady gait, nausea, dizziness w/ ambulation - CT scan showed left cerebellar edema and right temporal edema concerning for metastases. MRI demonstrates multiple scattered lesions. CT CAP showing 3.7cm lung nodule w multiple other nodules and LAD concerning for metastatic disease. 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 Was briefly admitted to [facility] for post-op monitoring - s/p EBUS on 08/31 w/ pulm - path resulted as NSCLC Plan: - Rad Onc rec hospice; does not rec whole brain RT given poor prognosis iso metastatic disease w/ innumerable brain lesions - consulted palliative care, appreciate assistance w/ GOC discussions. Will see on Friday - heme/onc following, appreciate recs - pulm s/o; f/u in pulm clinic within 1 mo - continue Decadron 4mg q6h + PPI for ppx - continue Keppra 500mg BID - Will work with Social work for setting up hospice in [facility] in [place], [place]. - per GOC with Nila, she agrees to starting comfort measures while inpatient - Will start low dose oxy and benzo prn Assessment & Plan (09/04/2025 11:23 AM CDT): - originally presented for 1 week of frequent falls/unsteady gait, nausea, dizziness w/ ambulation - CT scan showed left cerebellar edema and right temporal edema concerning for metastases. MRI demonstrates multiple scattered lesions. CT CAP showing 3.7cm lung nodule w multiple other nodules and LAD concerning for metastatic disease. 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 Was briefly admitted to [facility] for post-op monitoring - s/p EBUS on 08/31 w/ pulm - path resulted as NSCLC Plan: - Rad Onc rec hospice; does not rec whole brain RT given poor prognosis iso metastatic disease w/ innumerable brain lesions - consulted palliative care, appreciate assistance w/ GOC discussions. Will see on Friday - heme/onc following, appreciate recs - pulm s/o; f/u in pulm clinic within 1 mo - continue Decadron 4mg q6h + PPI for ppx - continue Keppra 500mg BID - continue q4 hours neurological checks - PT/OT rec acute rehab; likely poor benefit iso metastatic disease. Will discuss - fall precautions, delirium precautions - neurological checks Q4H Assessment & Plan (09/03/2025 12:50 PM CDT): - originally presented for 1 week of frequent falls/unsteady gait, nausea, dizziness w/ ambulation - CT scan showed left cerebellar edema and right temporal edema concerning for metastases. MRI demonstrates multiple scattered lesions. CT CAP showing 3.7cm lung nodule w multiple other nodules and LAD concerning for metastatic disease. 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 Was briefly admitted to [facility] for post-op monitoring - s/p EBUS on 08/31 w/ pulm - path resulted as NSCLC Plan: - Rad Onc rec hospice; does not rec whole brain RT given poor prognosis iso metastatic disease w/ innumerable brain lesions - consulted palliative care, appreciate assistance w/ GOC discussions. Will see on Friday - heme/onc following, appreciate recs - pulm s/o; f/u in pulm clinic within 1 mo - continue Decadron 4mg q6h + PPI for ppx - continue Keppra 500mg BID - continue q4 hours neurological checks - PT/OT rec acute rehab; likely poor benefit iso metastatic disease. Will discuss - fall precautions, delirium precautions - neurological checks Q4H Assessment & Plan (09/02/2025 3:15 PM CDT): - originally presented for 1 week of frequent falls/unsteady gait, nausea, dizziness w/ ambulation - CT scan showed left cerebellar edema and right temporal edema concerning for metastases. MRI demonstrates multiple scattered lesions. CT CAP showing 3.7cm lung nodule w multiple other nodules and LAD concerning for metastatic disease. 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 Was briefly admitted to [facility] for post-op monitoring - s/p EBUS on 08/31 w/ pulm - path resulted as NSCLC Plan: - Rad Onc rec hospice; does not rec whole brain RT given poor prognosis iso metastatic disease w/ innumerable brain lesions - consulted palliative care, appreciate assistance w/ GOC discussions. Will see on Friday - heme/onc following, appreciate recs - pulm s/o; f/u in pulm clinic within 1 mo - continue Decadron 4mg q6h + PPI for ppx - continue Keppra 500mg BID - continue q4 hours neurological checks - PT/OT rec acute rehab; likely poor benefit iso metastatic disease. Will discuss - d/c restraints - fall precautions, delirium precautions - neurological checks Q4H Assessment & Plan (09/01/2025 10:20 AM CDT): Keep bed alarms on restraints remain in place 08/31 Assessment & Plan (08/31/2025 9:19 AM CDT): Keep bed alarms on restraints remain in place 08/31 Assessment & Plan (08/30/2025 10:07 PM CDT): Keep bed alarms on Cerebellar mass 08/24/2025 Assessment & Plan (09/07/2025 11:37 AM CDT): - originally presented for 1 week of frequent falls/unsteady gait, nausea, dizziness w/ ambulation - CT scan showed left cerebellar edema and right temporal edema concerning for metastases. MRI demonstrates multiple scattered lesions. CT CAP showing 3.7cm lung nodule w multiple other nodules and LAD concerning for metastatic disease. 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 Was briefly admitted to [facility] for post-op monitoring - s/p EBUS on 08/31 w/ pulm - path resulted as NSCLC Plan: - Comfort care -Lorazapam 0.5mg q4hr prn for angiety, agitation -oxy 2.5mg q4hr prn for moderate and severe pain -tylenol 650 q4hr prn for mild pain - Continue decadron 4mg BID for 7 days (until 09/13/25) followed by 4mg daily until 09/20/25. - continue Keppra 500mg BID for 2 weeks (EOT 09/13/25) Assessment & Plan (09/06/2025 3:07 PM CDT): - originally presented for 1 week of frequent falls/unsteady gait, nausea, dizziness w/ ambulation - CT scan showed left cerebellar edema and right temporal edema concerning for metastases. MRI demonstrates multiple scattered lesions. CT CAP showing 3.7cm lung nodule w multiple other nodules and LAD concerning for metastatic disease. 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 Was briefly admitted to [facility] for post-op monitoring - s/p EBUS on 08/31 w/ pulm - path resulted as NSCLC Plan: - Comfort care - Lorazapam 0.5mg q4hr prn for angiety, agitation -oxy 2.5mg q4hr prn for moderate and severe pain -tylenol 650 q4hr prn for mild pain - continue Decadron 4mg q6h - continue Keppra 500mg BID - pending hospice facility. Assessment & Plan (09/05/2025 4:58 PM CDT): - originally presented for 1 week of frequent falls/unsteady gait, nausea, dizziness w/ ambulation - CT scan showed left cerebellar edema and right temporal edema concerning for metastases. MRI demonstrates multiple scattered lesions. CT CAP showing 3.7cm lung nodule w multiple other nodules and LAD concerning for metastatic disease. 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 Was briefly admitted to [facility] for post-op monitoring - s/p EBUS on 08/31 w/ pulm - path resulted as NSCLC Plan: - Rad Onc rec hospice; does not rec whole brain RT given poor prognosis iso metastatic disease w/ innumerable brain lesions - consulted palliative care, appreciate assistance w/ GOC discussions. Will see on Friday - heme/onc following, appreciate recs - pulm s/o; f/u in pulm clinic within 1 mo - continue Decadron 4mg q6h + PPI for ppx - continue Keppra 500mg BID - Will work with Social work for setting up hospice in [facility] in [place], [place]. - per GOC with Nila, she agrees to starting comfort measures while inpatient - Will start low dose oxy and benzo prn Assessment & Plan (09/04/2025 11:23 AM CDT): - originally presented for 1 week of frequent falls/unsteady gait, nausea, dizziness w/ ambulation - CT scan showed left cerebellar edema and right temporal edema concerning for metastases. MRI demonstrates multiple scattered lesions. CT CAP showing 3.7cm lung nodule w multiple other nodules and LAD concerning for metastatic disease. 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 Was briefly admitted to [facility] for post-op monitoring - s/p EBUS on 08/31 w/ pulm - path resulted as NSCLC Plan: - Rad Onc rec hospice; does not rec whole brain RT given poor prognosis iso metastatic disease w/ innumerable brain lesions - consulted palliative care, appreciate assistance w/ GOC discussions. Will see on Friday - heme/onc following, appreciate recs - pulm s/o; f/u in pulm clinic within 1 mo - continue Decadron 4mg q6h + PPI for ppx - continue Keppra 500mg BID - continue q4 hours neurological checks - PT/OT rec acute rehab; likely poor benefit iso metastatic disease. Will discuss - fall precautions, delirium precautions - neurological checks Q4H Assessment & Plan (09/03/2025 12:50 PM CDT): - originally presented for 1 week of frequent falls/unsteady gait, nausea, dizziness w/ ambulation - CT scan showed left cerebellar edema and right temporal edema concerning for metastases. MRI demonstrates multiple scattered lesions. CT CAP showing 3.7cm lung nodule w multiple other nodules and LAD concerning for metastatic disease. 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 Was briefly admitted to [facility] for post-op monitoring - s/p EBUS on 08/31 w/ pulm - path resulted as NSCLC Plan: - Rad Onc rec hospice; does not rec whole brain RT given poor prognosis iso metastatic disease w/ innumerable brain lesions - consulted palliative care, appreciate assistance w/ GOC discussions. Will see on Friday - heme/onc following, appreciate recs - pulm s/o; f/u in pulm clinic within 1 mo - continue Decadron 4mg q6h + PPI for ppx - continue Keppra 500mg BID - continue q4 hours neurological checks - PT/OT rec acute rehab; likely poor benefit iso metastatic disease. Will discuss - fall precautions, delirium precautions - neurological checks Q4H Assessment & Plan (09/02/2025 3:15 PM CDT): - originally presented for 1 week of frequent falls/unsteady gait, nausea, dizziness w/ ambulation - CT scan showed left cerebellar edema and right temporal edema concerning for metastases. MRI demonstrates multiple scattered lesions. CT CAP showing 3.7cm lung nodule w multiple other nodules and LAD concerning for metastatic disease. 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 Was briefly admitted to [facility] for post-op monitoring - s/p EBUS on 08/31 w/ pulm - path resulted as NSCLC Plan: - Rad Onc rec hospice; does not rec whole brain RT given poor prognosis iso metastatic disease w/ innumerable brain lesions - consulted palliative care, appreciate assistance w/ GOC discussions. Will see on Friday - heme/onc following, appreciate recs - pulm s/o; f/u in pulm clinic within 1 mo - continue Decadron 4mg q6h + PPI for ppx - continue Keppra 500mg BID - continue q4 hours neurological checks - PT/OT rec acute rehab; likely poor benefit iso metastatic disease. Will discuss - d/c restraints - fall precautions, delirium precautions - neurological checks Q4H Assessment & Plan (09/01/2025 10:20 AM CDT): Now s/p third ventriculostomy -continue Decadron 4 mg q.6 + PPI for ppx -continue Keppra 500 mg b.i.d. -continue q4 hours neurological checks -Rad Onc planning whole-brain radiation after discharge -hold Lovenox for bronchoscopy 08/31 -08/31: ok to remove nsgy dressings today, OP f/u 2wks or IP if remains present 09/12. Assessment & Plan (08/31/2025 9:19 AM CDT): Now s/p third ventriculostomy -continue Decadron 4 mg q.6 + PPI for ppx -continue Keppra 500 mg b.i.d. -continue q4 hours neurological checks -Rad Onc planning whole-brain radiation after discharge -hold Lovenox for bronchoscopy 08/31 -08/31: ok to remove nsgy dressings today, OP f/u 2wks or IP if remains present 09/12. Assessment & Plan (08/30/2025 10:07 PM CDT): Now s/p third ventriculostomy -continue Decadron 4 mg q.6 -continue Keppra 500 mg b.i.d. -continue q.4 hours neurological checks -Rad Onc planning whole-brain radiation after discharge -continue Protonix while on Decadron -hold Lovenox for bronchoscopy tomorrow morning Assessment & Plan (08/28/2025 10:23 AM CDT): - Patient w no significant past medical history, reports one week hx of dizziness w ambulation - On exam, mild dysmetria on finger nose test, more noticeable on L side, otherwise unremarkable neuro exam - CT CAP: 3.7 cm concerning for primary malignancy. 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 Mild bilateral cerebellar tonsil descent causing crowding of the foramen magnum, compatible with early inferior cerebellar tonsillar herniation. No evidence of acute intracranial hemorrhage or infarct. 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 Plan: - Neurosurgery consulted - Continue to monitor neuro exam q4h - CTH 08/28 pending - OR on 08/29 for palliative CSF diversion with ETV and possible VPS placement - Hold anticoagulation/antiplatelet medications - Okay for dvt ppx [will hold AM dose] - Continue decadron and keppra - Heme/onc consulted - If no NSGY biopsy/resection and functional status remains good, could potentially start chemotherapy inpatient based on lung biopsy results - TTE without effusion, EF 66% - Radiation onc consulted - Need tissue diagnosis prior to treatment - Proceed with CSF shunting as appropriate per NSGY - Continue high dose dexamethasone as follows: 4 mg PO/IV QID x 1 week, then 4 mg PO/IV TID x 1 week, then 4 mg PO/IV BID x 1 week, then 4 mg PO/IV daily x 1 week, then STOP - Continue pantoprazole 40 mg PO/IV daily while the patient is receiving dexamethasone - Monitor the patient's blood sugars while the patient is receiving dexamethasone - From a radiation therapy perspective, she would be a candidate for whole brain radiation therapy as an outpatient upon discharge from hospital. - Pulmonology consulted - EBUS scheduling after EVD Assessment & Plan (08/27/2025 12:20 PM CDT): - Patient w no significant past medical history, reports one week hx of dizziness w ambulation - On exam, mild dysmetria on finger nose test, more noticeable on L side, otherwise unremarkable neuro exam - CT CAP: 3.7 cm concerning for primary malignancy. 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 Mild bilateral cerebellar tonsil descent causing crowding of the foramen magnum, compatible with early inferior cerebellar tonsillar herniation. No evidence of acute intracranial hemorrhage or infarct. 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 Plan: - Neurosurgery consulted - Continue to monitor neuro exam q4h - OR on 08/29 for palliative CSF diversion with ETV and possible VPS placement - Hold anticoagulation/antiplatelet medications - Okay for dvt ppx - Continue decadron and keppra - Heme/onc consulted - If no NSGY biopsy/resection and functional status remains good, could potentially start chemotherapy inpatient based on lung biopsy results - TTE without effusion, EF 66% - Radiation onc consulted - Need tissue diagnosis prior to treatment - Proceed with CSF shunting as appropriate per NSGY - Continue high dose dexamethasone as follows: 4 mg PO/IV QID x 1 week, then 4 mg PO/IV TID x 1 week, then 4 mg PO/IV BID x 1 week, then 4 mg PO/IV daily x 1 week, then STOP - Continue pantoprazole 40 mg PO/IV daily while the patient is receiving dexamethasone - Monitor the patient's blood sugars while the patient is receiving dexamethasone - From a radiation therapy perspective, she would be a candidate for whole brain radiation therapy as an outpatient upon discharge from hospital. - Pulmonology consulted - EBUS scheduling after EVD Assessment & Plan (08/26/2025 12:42 PM CDT): - Patient w no significant past medical history, reports one week hx of dizziness w ambulation - On exam, mild dysmetria on finger nose test, more noticeable on L side, otherwise unremarkable neuro exam - CT CAP: 3.7 cm concerning for primary malignancy. 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 Mild bilateral cerebellar tonsil descent causing crowding of the foramen magnum, compatible with early inferior cerebellar tonsillar herniation. No evidence of acute intracranial hemorrhage or infarct. 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 Plan: - Neurosurgery consulted - Continue to monitor neuro exam q4h - OR on 08/29 for palliative CSF diversion with ETV and possible VPS placement - Okay for diet and activity as tolerated - Please hold anticoagulation/antiplatelet medications - Okay for dvt ppx - Continue decadron and keppra - Heme/onc consulted - If no NSGY biopsy/resection and functional status remains good, could potentially start chemotherapy inpatient based on lung biopsy results - TTE without effusion, EF 66% - Radiation onc consulted - Need tissue diagnosis prior to treatment - Proceed with CSF shunting as appropriate per NSGY - Continue high dose dexamethasone as follows: 4 mg PO/IV QID x 1 week, then 4 mg PO/IV TID x 1 week, then 4 mg PO/IV BID x 1 week, then 4 mg PO/IV daily x 1 week, then STOP - Continue pantoprazole 40 mg PO/IV daily while the patient is receiving dexamethasone - Monitor the patient's blood sugars while the patient is receiving dexamethasone - From a radiation therapy perspective, she would be a candidate for whole brain radiation therapy as an outpatient upon discharge from hospital. - Pulmonology consulted - EBUS scheduling after EVD Assessment & Plan (08/25/2025 11:56 AM CDT): - Patient w no significant past medical history, reports one week hx of dizziness w ambulation - On exam, mild dysmetria on finger nose test, more noticeable on L side, otherwise unremarkable neuro exam - CT CAP: 3.7 cm concerning for primary malignancy. 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 Mild bilateral cerebellar tonsil descent causing crowding of the foramen magnum, compatible with early inferior cerebellar tonsillar herniation. No evidence of acute intracranial hemorrhage or infarct. 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 Plan: - Neurosurgery following - Continue to monitor neuro exam q4h - Anticipate OR on 08/29 for palliative CSF diversion with ETV and possible VPS placement - Okay for diet and activity as tolerated - Please hold anticoagulation/antiplatelet medications - Okay for dvt ppx - Continue decadron 4mg q4hr and keppra 500mg BID - [facility] planning whole brain radiation following discharge - Pulm planning EBUS/bronchoscopic biopsy following VPS placement - Recommend goals of care conversation - Overall care per primary team - Heme/onc consulted - If no NSGY biopsy/resection and functional status remains good, could potentially start chemotherapy inpatient based on lung biopsy results - TTE to evaluate pericardial effusion - Radiation onc consulted, appreciate recs - Need tissue diagnosis prior to treatment - Proceed with CSF shunting as appropriate per NSGY - Continue high dose dexamethasone as follows: 4 mg PO/IV QID x 1 week, then 4 mg PO/IV TID x 1 week, then 4 mg PO/IV BID x 1 week, then 4 mg PO/IV daily x 1 week, then STOP - Continue pantoprazole 40 mg PO/IV daily while the patient is receiving dexamethasone - Monitor the patient's blood sugars while the patient is receiving dexamethasone - From a radiation therapy perspective, she would be a candidate for whole brain radiation therapy as an outpatient upon discharge from hospital. - Pulmonology consulted, appreciate recs - Will await for [employer] shunt prior bronch scheduling given the risk of herniation, once [employer] shunt addressed will schedule for bronchoscopy with biopsy. Assessment & Plan (08/24/2025 1:01 PM CDT): - Patient w no significant past medical history, reports one week hx of dizziness w ambulation - On exam, mild dysmetria on finger nose test, more noticeable on L side, otherwise unremarkable neuro exam - CT CAP: 3.7 cm concerning for primary malignancy. 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 Mild bilateral cerebellar tonsil descent causing crowding of the foramen magnum, compatible with early inferior cerebellar tonsillar herniation. No evidence of acute intracranial hemorrhage or infarct. 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 - TTE to evaluate pericardial effusion - Radiation onc consulted, appreciate recs - Pulmonology consulted, appreciate recs - Continue keppra 500mg BID - Continue decadron 4mg q4hr - NPO for possible pulmonary biopsy - Q4H neurochecks - Daily CBC, BMP, Mag, Phos Assessment & Plan (08/24/2025 4:33 AM CDT): Patient w no significant past medical history, reports one week hx of dizziness w ambulation On exam, mild dysmetria on finger nose test, more noticeable on L side, otherwise unremarkable neuro exam CT CAP showin.7 cm concerning for primary malignancy. 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 w metastases to brain Neurosurgery consulted in ED Plan: - neurosurgery following, f/u recs - ordered MRI brain wwo, f/u results - started keppra 500mg BID - started decadron 4mg q4hr - NPO at midnight for possible surgery in the AM - consult order for oncology and radiation oncology placed, formal consult in AM - q4hr neurochecks - daily CBC, BMP, Mag, Phos Cerebellar ataxia 08/24/2025 Assessment & Plan (09/07/2025 11:37 AM CDT): - originally presented for 1 week of frequent falls/unsteady gait, nausea, dizziness w/ ambulation - CT scan showed left cerebellar edema and right temporal edema concerning for metastases. MRI demonstrates multiple scattered lesions. CT CAP showing 3.7cm lung nodule w multiple other nodules and LAD concerning for metastatic disease. 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 Was briefly admitted to [facility] for post-op monitoring - s/p EBUS on 08/31 w/ pulm - path resulted as NSCLC Plan: - Comfort care -Lorazapam 0.5mg q4hr prn for angiety, agitation -oxy 2.5mg q4hr prn for moderate and severe pain -tylenol 650 q4hr prn for mild pain - Continue decadron 4mg BID for 7 days (until 09/13/25) followed by 4mg daily until 09/20/25. - continue Keppra 500mg BID for 2 weeks (EOT 09/13/25) Assessment & Plan (09/06/2025 3:07 PM CDT): - originally presented for 1 week of frequent falls/unsteady gait, nausea, dizziness w/ ambulation - CT scan showed left cerebellar edema and right temporal edema concerning for metastases. MRI demonstrates multiple scattered lesions. CT CAP showing 3.7cm lung nodule w multiple other nodules and LAD concerning for metastatic disease. 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 Was briefly admitted to [facility] for post-op monitoring - s/p EBUS on 08/31 w/ pulm - path resulted as NSCLC Plan: - Comfort care - Lorazapam 0.5mg q4hr prn for angiety, agitation -oxy 2.5mg q4hr prn for moderate and severe pain -tylenol 650 q4hr prn for mild pain - continue Decadron 4mg q6h - continue Keppra 500mg BID - pending hospice facility. Assessment & Plan (09/05/2025 4:58 PM CDT): - originally presented for 1 week of frequent falls/unsteady gait, nausea, dizziness w/ ambulation - CT scan showed left cerebellar edema and right temporal edema concerning for metastases. MRI demonstrates multiple scattered lesions. CT CAP showing 3.7cm lung nodule w multiple other nodules and LAD concerning for metastatic disease. 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 Was briefly admitted to [facility] for post-op monitoring - s/p EBUS on 08/31 w/ pulm - path resulted as NSCLC Plan: - Rad Onc rec hospice; does not rec whole brain RT given poor prognosis iso metastatic disease w/ innumerable brain lesions - consulted palliative care, appreciate assistance w/ GOC discussions. Will see on Friday - heme/onc following, appreciate recs - pulm s/o; f/u in pulm clinic within 1 mo - continue Decadron 4mg q6h + PPI for ppx - continue Keppra 500mg BID - Will work with Social work for setting up hospice in [facility] in [place], [place]. - per GOC with Nila, she agrees to starting comfort measures while inpatient - Will start low dose oxy and benzo prn Assessment & Plan (09/04/2025 11:23 AM CDT): - originally presented for 1 week of frequent falls/unsteady gait, nausea, dizziness w/ ambulation - CT scan showed left cerebellar edema and right temporal edema concerning for metastases. MRI demonstrates multiple scattered lesions. CT CAP showing 3.7cm lung nodule w multiple other nodules and LAD concerning for metastatic disease. 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 Was briefly admitted to [facility] for post-op monitoring - s/p EBUS on 08/31 w/ pulm - path resulted as NSCLC Plan: - Rad Onc rec hospice; does not rec whole brain RT given poor prognosis iso metastatic disease w/ innumerable brain lesions - consulted palliative care, appreciate assistance w/ GOC discussions. Will see on Friday - heme/onc following, appreciate recs - pulm s/o; f/u in pulm clinic within 1 mo - continue Decadron 4mg q6h + PPI for ppx - continue Keppra 500mg BID - continue q4 hours neurological checks - PT/OT rec acute rehab; likely poor benefit iso metastatic disease. Will discuss - fall precautions, delirium precautions - neurological checks Q4H Assessment & Plan (09/03/2025 12:50 PM CDT): - originally presented for 1 week of frequent falls/unsteady gait, nausea, dizziness w/ ambulation - CT scan showed left cerebellar edema and right temporal edema concerning for metastases. MRI demonstrates multiple scattered lesions. CT CAP showing 3.7cm lung nodule w multiple other nodules and LAD concerning for metastatic disease. 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 Was briefly admitted to [facility] for post-op monitoring - s/p EBUS on 08/31 w/ pulm - path resulted as NSCLC Plan: - Rad Onc rec hospice; does not rec whole brain RT given poor prognosis iso metastatic disease w/ innumerable brain lesions - consulted palliative care, appreciate assistance w/ GOC discussions. Will see on Friday - heme/onc following, appreciate recs - pulm s/o; f/u in pulm clinic within 1 mo - continue Decadron 4mg q6h + PPI for ppx - continue Keppra 500mg BID - continue q4 hours neurological checks - PT/OT rec acute rehab; likely poor benefit iso metastatic disease. Will discuss - fall precautions, delirium precautions - neurological checks Q4H Assessment & Plan (09/02/2025 3:15 PM CDT): - originally presented for 1 week of frequent falls/unsteady gait, nausea, dizziness w/ ambulation - CT scan showed left cerebellar edema and right temporal edema concerning for metastases. MRI demonstrates multiple scattered lesions. CT CAP showing 3.7cm lung nodule w multiple other nodules and LAD concerning for metastatic disease. 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 Was briefly admitted to [facility] for post-op monitoring - s/p EBUS on 08/31 w/ pulm - path resulted as NSCLC Plan: - Rad Onc rec hospice; does not rec whole brain RT given poor prognosis iso metastatic disease w/ innumerable brain lesions - consulted palliative care, appreciate assistance w/ GOC discussions. Will see on Friday - heme/onc following, appreciate recs - pulm s/o; f/u in pulm clinic within 1 mo - continue Decadron 4mg q6h + PPI for ppx - continue Keppra 500mg BID - continue q4 hours neurological checks - PT/OT rec acute rehab; likely poor benefit iso metastatic disease. Will discuss - d/c restraints - fall precautions, delirium precautions - neurological checks Q4H Assessment & Plan (09/01/2025 10:20 AM CDT): Now s/p third ventriculostomy -continue Decadron 4 mg q.6 + PPI for ppx -continue Keppra 500 mg b.i.d. -continue q4 hours neurological checks -Rad Onc planning whole-brain radiation after discharge -hold Lovenox for bronchoscopy 08/31 -08/31: ok to remove nsgy dressings today, OP f/u 2wks or IP if remains present 09/12. Assessment & Plan (08/31/2025 9:19 AM CDT): Now s/p third ventriculostomy -continue Decadron 4 mg q.6 + PPI for ppx -continue Keppra 500 mg b.i.d. -continue q4 hours neurological checks -Rad Onc planning whole-brain radiation after discharge -hold Lovenox for bronchoscopy 08/31 -08/31: ok to remove nsgy dressings today, OP f/u 2wks or IP if remains present 09/12. Assessment & Plan (08/30/2025 10:07 PM CDT): Now s/p third ventriculostomy -continue Decadron 4 mg q.6 -continue Keppra 500 mg b.i.d. -continue q.4 hours neurological checks -Rad Onc planning whole-brain radiation after discharge -continue Protonix while on Decadron -hold Lovenox for bronchoscopy tomorrow morning Assessment & Plan (08/28/2025 10:23 AM CDT): - Patient w no significant past medical history, reports one week hx of dizziness w ambulation - On exam, mild dysmetria on finger nose test, more noticeable on L side, otherwise unremarkable neuro exam - CT CAP: 3.7 cm concerning for primary malignancy. 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 Mild bilateral cerebellar tonsil descent causing crowding of the foramen magnum, compatible with early inferior cerebellar tonsillar herniation. No evidence of acute intracranial hemorrhage or infarct. 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 Plan: - Neurosurgery consulted - Continue to monitor neuro exam q4h - CTH 08/28 pending - OR on 08/29 for palliative CSF diversion with ETV and possible VPS placement - Hold anticoagulation/antiplatelet medications - Okay for dvt ppx [will hold AM dose] - Continue decadron and keppra - Heme/onc consulted - If no NSGY biopsy/resection and functional status remains good, could potentially start chemotherapy inpatient based on lung biopsy results - TTE without effusion, EF 66% - Radiation onc consulted - Need tissue diagnosis prior to treatment - Proceed with CSF shunting as appropriate per NSGY - Continue high dose dexamethasone as follows: 4 mg PO/IV QID x 1 week, then 4 mg PO/IV TID x 1 week, then 4 mg PO/IV BID x 1 week, then 4 mg PO/IV daily x 1 week, then STOP - Continue pantoprazole 40 mg PO/IV daily while the patient is receiving dexamethasone - Monitor the patient's blood sugars while the patient is receiving dexamethasone - From a radiation therapy perspective, she would be a candidate for whole brain radiation therapy as an outpatient upon discharge from hospital. - Pulmonology consulted - EBUS scheduling after EVD Assessment & Plan (08/27/2025 12:20 PM CDT): - Patient w no significant past medical history, reports one week hx of dizziness w ambulation - On exam, mild dysmetria on finger nose test, more noticeable on L side, otherwise unremarkable neuro exam - CT CAP: 3.7 cm concerning for primary malignancy. 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 Mild bilateral cerebellar tonsil descent causing crowding of the foramen magnum, compatible with early inferior cerebellar tonsillar herniation. No evidence of acute intracranial hemorrhage or infarct. 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 Plan: - Neurosurgery consulted - Continue to monitor neuro exam q4h - OR on 08/29 for palliative CSF diversion with ETV and possible VPS placement - Hold anticoagulation/antiplatelet medications - Okay for dvt ppx - Continue decadron and keppra - Heme/onc consulted - If no NSGY biopsy/resection and functional status remains good, could potentially start chemotherapy inpatient based on lung biopsy results - TTE without effusion, EF 66% - Radiation onc consulted - Need tissue diagnosis prior to treatment - Proceed with CSF shunting as appropriate per NSGY - Continue high dose dexamethasone as follows: 4 mg PO/IV QID x 1 week, then 4 mg PO/IV TID x 1 week, then 4 mg PO/IV BID x 1 week, then 4 mg PO/IV daily x 1 week, then STOP - Continue pantoprazole 40 mg PO/IV daily while the patient is receiving dexamethasone - Monitor the patient's blood sugars while the patient is receiving dexamethasone - From a radiation therapy perspective, she would be a candidate for whole brain radiation therapy as an outpatient upon discharge from hospital. - Pulmonology consulted - EBUS scheduling after EVD Assessment & Plan (08/26/2025 12:42 PM CDT): - Patient w no significant past medical history, reports one week hx of dizziness w ambulation - On exam, mild dysmetria on finger nose test, more noticeable on L side, otherwise unremarkable neuro exam - CT CAP: 3.7 cm concerning for primary malignancy. 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 Mild bilateral cerebellar tonsil descent causing crowding of the foramen magnum, compatible with early inferior cerebellar tonsillar herniation. No evidence of acute intracranial hemorrhage or infarct. 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 Plan: - Neurosurgery consulted - Continue to monitor neuro exam q4h - OR on 08/29 for palliative CSF diversion with ETV and possible VPS placement - Okay for diet and activity as tolerated - Please hold anticoagulation/antiplatelet medications - Okay for dvt ppx - Continue decadron and keppra - Heme/onc consulted - If no NSGY biopsy/resection and functional status remains good, could potentially start chemotherapy inpatient based on lung biopsy results - TTE without effusion, EF 66% - Radiation onc consulted - Need tissue diagnosis prior to treatment - Proceed with CSF shunting as appropriate per NSGY - Continue high dose dexamethasone as follows: 4 mg PO/IV QID x 1 week, then 4 mg PO/IV TID x 1 week, then 4 mg PO/IV BID x 1 week, then 4 mg PO/IV daily x 1 week, then STOP - Continue pantoprazole 40 mg PO/IV daily while the patient is receiving dexamethasone - Monitor the patient's blood sugars while the patient is receiving dexamethasone - From a radiation therapy perspective, she would be a candidate for whole brain radiation therapy as an outpatient upon discharge from hospital. - Pulmonology consulted - EBUS scheduling after EVD Assessment & Plan (08/25/2025 11:56 AM CDT): - Patient w no significant past medical history, reports one week hx of dizziness w ambulation - On exam, mild dysmetria on finger nose test, more noticeable on L side, otherwise unremarkable neuro exam - CT CAP: 3.7 cm concerning for primary malignancy. 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 Mild bilateral cerebellar tonsil descent causing crowding of the foramen magnum, compatible with early inferior cerebellar tonsillar herniation. No evidence of acute intracranial hemorrhage or infarct. 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 Plan: - Neurosurgery following - Continue to monitor neuro exam q4h - Anticipate OR on 08/29 for palliative CSF diversion with ETV and possible VPS placement - Okay for diet and activity as tolerated - Please hold anticoagulation/antiplatelet medications - Okay for dvt ppx - Continue decadron 4mg q4hr and keppra 500mg BID - [facility] planning whole brain radiation following discharge - Pulm planning EBUS/bronchoscopic biopsy following VPS placement - Recommend goals of care conversation - Overall care per primary team - Heme/onc consulted - If no NSGY biopsy/resection and functional status remains good, could potentially start chemotherapy inpatient based on lung biopsy results - TTE to evaluate pericardial effusion - Radiation onc consulted, appreciate recs - Need tissue diagnosis prior to treatment - Proceed with CSF shunting as appropriate per NSGY - Continue high dose dexamethasone as follows: 4 mg PO/IV QID x 1 week, then 4 mg PO/IV TID x 1 week, then 4 mg PO/IV BID x 1 week, then 4 mg PO/IV daily x 1 week, then STOP - Continue pantoprazole 40 mg PO/IV daily while the patient is receiving dexamethasone - Monitor the patient's blood sugars while the patient is receiving dexamethasone - From a radiation therapy perspective, she would be a candidate for whole brain radiation therapy as an outpatient upon discharge from hospital. - Pulmonology consulted, appreciate recs - Will await for [employer] shunt prior bronch scheduling given the risk of herniation, once [employer] shunt addressed will schedule for bronchoscopy with biopsy. Assessment & Plan (08/24/2025 1:01 PM CDT): - Patient w no significant past medical history, reports one week hx of dizziness w ambulation - On exam, mild dysmetria on finger nose test, more noticeable on L side, otherwise unremarkable neuro exam - CT CAP: 3.7 cm concerning for primary malignancy. 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 Mild bilateral cerebellar tonsil descent causing crowding of the foramen magnum, compatible with early inferior cerebellar tonsillar herniation. No evidence of acute intracranial hemorrhage or infarct. 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 - TTE to evaluate pericardial effusion - Radiation onc consulted, appreciate recs - Pulmonology consulted, appreciate recs - Continue keppra 500mg BID - Continue decadron 4mg q4hr - NPO for possible pulmonary biopsy - Q4H neurochecks - Daily CBC, BMP, Mag, Phos Assessment & Plan (08/24/2025 4:33 AM CDT): Patient w no significant past medical history, reports one week hx of dizziness w ambulation On exam, mild dysmetria on finger nose test, more noticeable on L side, otherwise unremarkable neuro exam CT CAP showin.7 cm concerning for primary malignancy. 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 w metastases to brain Neurosurgery consulted in ED Plan: - neurosurgery following, f/u recs - ordered MRI brain wwo, f/u results - started keppra 500mg BID - started decadron 4mg q4hr - NPO at midnight for possible surgery in the AM - consult order for oncology and radiation oncology placed, formal consult in AM - q4hr neurochecks - daily CBC, BMP, Mag, Phos Obstructive hydrocephalus 08/23/2025 Assessment & Plan (09/07/2025 11:37 AM CDT): - originally presented for 1 week of frequent falls/unsteady gait, nausea, dizziness w/ ambulation - CT scan showed left cerebellar edema and right temporal edema concerning for metastases. MRI demonstrates multiple scattered lesions. CT CAP showing 3.7cm lung nodule w multiple other nodules and LAD concerning for metastatic disease. 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 Was briefly admitted to [facility] for post-op monitoring - s/p EBUS on 08/31 w/ pulm - path resulted as NSCLC Plan: - Comfort care -Lorazapam 0.5mg q4hr prn for angiety, agitation -oxy 2.5mg q4hr prn for moderate and severe pain -tylenol 650 q4hr prn for mild pain - Continue decadron 4mg BID for 7 days (until 09/13/25) followed by 4mg daily until 09/20/25. - continue Keppra 500mg BID for 2 weeks (EOT 09/13/25) Assessment & Plan (09/06/2025 3:07 PM CDT): - originally presented for 1 week of frequent falls/unsteady gait, nausea, dizziness w/ ambulation - CT scan showed left cerebellar edema and right temporal edema concerning for metastases. MRI demonstrates multiple scattered lesions. CT CAP showing 3.7cm lung nodule w multiple other nodules and LAD concerning for metastatic disease. 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 Was briefly admitted to [facility] for post-op monitoring - s/p EBUS on 08/31 w/ pulm - path resulted as NSCLC Plan: - Comfort care - Lorazapam 0.5mg q4hr prn for angiety, agitation -oxy 2.5mg q4hr prn for moderate and severe pain -tylenol 650 q4hr prn for mild pain - continue Decadron 4mg q6h - continue Keppra 500mg BID - pending hospice facility. Assessment & Plan (09/05/2025 4:58 PM CDT): - originally presented for 1 week of frequent falls/unsteady gait, nausea, dizziness w/ ambulation - CT scan showed left cerebellar edema and right temporal edema concerning for metastases. MRI demonstrates multiple scattered lesions. CT CAP showing 3.7cm lung nodule w multiple other nodules and LAD concerning for metastatic disease. 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 Was briefly admitted to [facility] for post-op monitoring - s/p EBUS on 08/31 w/ pulm - path resulted as NSCLC Plan: - Rad Onc rec hospice; does not rec whole brain RT given poor prognosis iso metastatic disease w/ innumerable brain lesions - consulted palliative care, appreciate assistance w/ GOC discussions. Will see on Friday - heme/onc following, appreciate recs - pulm s/o; f/u in pulm clinic within 1 mo - continue Decadron 4mg q6h + PPI for ppx - continue Keppra 500mg BID - Will work with Social work for setting up hospice in [facility] in [place], [place]. - per GOC with Nila, she agrees to starting comfort measures while inpatient - Will start low dose oxy and benzo prn Assessment & Plan (09/04/2025 11:23 AM CDT): - originally presented for 1 week of frequent falls/unsteady gait, nausea, dizziness w/ ambulation - CT scan showed left cerebellar edema and right temporal edema concerning for metastases. MRI demonstrates multiple scattered lesions. CT CAP showing 3.7cm lung nodule w multiple other nodules and LAD concerning for metastatic disease. 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 Was briefly admitted to [facility] for post-op monitoring - s/p EBUS on 08/31 w/ pulm - path resulted as NSCLC Plan: - Rad Onc rec hospice; does not rec whole brain RT given poor prognosis iso metastatic disease w/ innumerable brain lesions - consulted palliative care, appreciate assistance w/ GOC discussions. Will see on Friday - heme/onc following, appreciate recs - pulm s/o; f/u in pulm clinic within 1 mo - continue Decadron 4mg q6h + PPI for ppx - continue Keppra 500mg BID - continue q4 hours neurological checks - PT/OT rec acute rehab; likely poor benefit iso metastatic disease. Will discuss - fall precautions, delirium precautions - neurological checks Q4H Assessment & Plan (09/03/2025 12:50 PM CDT): - originally presented for 1 week of frequent falls/unsteady gait, nausea, dizziness w/ ambulation - CT scan showed left cerebellar edema and right temporal edema concerning for metastases. MRI demonstrates multiple scattered lesions. CT CAP showing 3.7cm lung nodule w multiple other nodules and LAD concerning for metastatic disease. 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 Was briefly admitted to [facility] for post-op monitoring - s/p EBUS on 08/31 w/ pulm - path resulted as NSCLC Plan: - Rad Onc rec hospice; does not rec whole brain RT given poor prognosis iso metastatic disease w/ innumerable brain lesions - consulted palliative care, appreciate assistance w/ GOC discussions. Will see on Friday - heme/onc following, appreciate recs - pulm s/o; f/u in pulm clinic within 1 mo - continue Decadron 4mg q6h + PPI for ppx - continue Keppra 500mg BID - continue q4 hours neurological checks - PT/OT rec acute rehab; likely poor benefit iso metastatic disease. Will discuss - fall precautions, delirium precautions - neurological checks Q4H Assessment & Plan (09/02/2025 3:15 PM CDT): - originally presented for 1 week of frequent falls/unsteady gait, nausea, dizziness w/ ambulation - CT scan showed left cerebellar edema and right temporal edema concerning for metastases. MRI demonstrates multiple scattered lesions. CT CAP showing 3.7cm lung nodule w multiple other nodules and LAD concerning for metastatic disease. 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 Was briefly admitted to [facility] for post-op monitoring - s/p EBUS on 08/31 w/ pulm - path resulted as NSCLC Plan: - Rad Onc rec hospice; does not rec whole brain RT given poor prognosis iso metastatic disease w/ innumerable brain lesions - consulted palliative care, appreciate assistance w/ GOC discussions. Will see on Friday - heme/onc following, appreciate recs - pulm s/o; f/u in pulm clinic within 1 mo - continue Decadron 4mg q6h + PPI for ppx - continue Keppra 500mg BID - continue q4 hours neurological checks - PT/OT rec acute rehab; likely poor benefit iso metastatic disease. Will discuss - d/c restraints - fall precautions, delirium precautions - neurological checks Q4H Assessment & Plan (09/01/2025 10:20 AM CDT): Now s/p third ventriculostomy -continue Decadron 4 mg q.6 + PPI for ppx -continue Keppra 500 mg b.i.d. -continue q4 hours neurological checks -Rad Onc planning whole-brain radiation after discharge -hold Lovenox for bronchoscopy 08/31 -08/31: ok to remove nsgy dressings today, OP f/u 2wks or IP if remains present 09/12. Assessment & Plan (08/31/2025 9:19 AM CDT): Now s/p third ventriculostomy -continue Decadron 4 mg q.6 + PPI for ppx -continue Keppra 500 mg b.i.d. -continue q4 hours neurological checks -Rad Onc planning whole-brain radiation after discharge -hold Lovenox for bronchoscopy 08/31 -08/31: ok to remove nsgy dressings today, OP f/u 2wks or IP if remains present 09/12. Assessment & Plan (08/30/2025 10:07 PM CDT): Now s/p third ventriculostomy -continue Decadron 4 mg q.6 -continue Keppra 500 mg b.i.d. -continue q.4 hours neurological checks -Rad Onc planning whole-brain radiation after discharge -continue Protonix while on Decadron -hold Lovenox for bronchoscopy tomorrow morning Assessment & Plan (08/28/2025 10:23 AM CDT): - Patient w no significant past medical history, reports one week hx of dizziness w ambulation - On exam, mild dysmetria on finger nose test, more noticeable on L side, otherwise unremarkable neuro exam - CT CAP: 3.7 cm concerning for primary malignancy. 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 Mild bilateral cerebellar tonsil descent causing crowding of the foramen magnum, compatible with early inferior cerebellar tonsillar herniation. No evidence of acute intracranial hemorrhage or infarct. 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 Plan: - Neurosurgery consulted - Continue to monitor neuro exam q4h - CTH 08/28 pending - OR on 08/29 for palliative CSF diversion with ETV and possible VPS placement - Hold anticoagulation/antiplatelet medications - Okay for dvt ppx [will hold AM dose] - Continue decadron and keppra - Heme/onc consulted - If no NSGY biopsy/resection and functional status remains good, could potentially start chemotherapy inpatient based on lung biopsy results - TTE without effusion, EF 66% - Radiation onc consulted - Need tissue diagnosis prior to treatment - Proceed with CSF shunting as appropriate per NSGY - Continue high dose dexamethasone as follows: 4 mg PO/IV QID x 1 week, then 4 mg PO/IV TID x 1 week, then 4 mg PO/IV BID x 1 week, then 4 mg PO/IV daily x 1 week, then STOP - Continue pantoprazole 40 mg PO/IV daily while the patient is receiving dexamethasone - Monitor the patient's blood sugars while the patient is receiving dexamethasone - From a radiation therapy perspective, she would be a candidate for whole brain radiation therapy as an outpatient upon discharge from hospital. - Pulmonology consulted - EBUS scheduling after EVD Assessment & Plan (08/27/2025 12:20 PM CDT): - Patient w no significant past medical history, reports one week hx of dizziness w ambulation - On exam, mild dysmetria on finger nose test, more noticeable on L side, otherwise unremarkable neuro exam - CT CAP: 3.7 cm concerning for primary malignancy. 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 Mild bilateral cerebellar tonsil descent causing crowding of the foramen magnum, compatible with early inferior cerebellar tonsillar herniation. No evidence of acute intracranial hemorrhage or infarct. 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 Plan: - Neurosurgery consulted - Continue to monitor neuro exam q4h - OR on 08/29 for palliative CSF diversion with ETV and possible VPS placement - Hold anticoagulation/antiplatelet medications - Okay for dvt ppx - Continue decadron and keppra - Heme/onc consulted - If no NSGY biopsy/resection and functional status remains good, could potentially start chemotherapy inpatient based on lung biopsy results - TTE without effusion, EF 66% - Radiation onc consulted - Need tissue diagnosis prior to treatment - Proceed with CSF shunting as appropriate per NSGY - Continue high dose dexamethasone as follows: 4 mg PO/IV QID x 1 week, then 4 mg PO/IV TID x 1 week, then 4 mg PO/IV BID x 1 week, then 4 mg PO/IV daily x 1 week, then STOP - Continue pantoprazole 40 mg PO/IV daily while the patient is receiving dexamethasone - Monitor the patient's blood sugars while the patient is receiving dexamethasone - From a radiation therapy perspective, she would be a candidate for whole brain radiation therapy as an outpatient upon discharge from hospital. - Pulmonology consulted - EBUS scheduling after EVD Assessment & Plan (08/26/2025 12:42 PM CDT): - Patient w no significant past medical history, reports one week hx of dizziness w ambulation - On exam, mild dysmetria on finger nose test, more noticeable on L side, otherwise unremarkable neuro exam - CT CAP: 3.7 cm concerning for primary malignancy. 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 Mild bilateral cerebellar tonsil descent causing crowding of the foramen magnum, compatible with early inferior cerebellar tonsillar herniation. No evidence of acute intracranial hemorrhage or infarct. 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 Plan: - Neurosurgery consulted - Continue to monitor neuro exam q4h - OR on 08/29 for palliative CSF diversion with ETV and possible VPS placement - Okay for diet and activity as tolerated - Please hold anticoagulation/antiplatelet medications - Okay for dvt ppx - Continue decadron and keppra - Heme/onc consulted - If no NSGY biopsy/resection and functional status remains good, could potentially start chemotherapy inpatient based on lung biopsy results - TTE without effusion, EF 66% - Radiation onc consulted - Need tissue diagnosis prior to treatment - Proceed with CSF shunting as appropriate per NSGY - Continue high dose dexamethasone as follows: 4 mg PO/IV QID x 1 week, then 4 mg PO/IV TID x 1 week, then 4 mg PO/IV BID x 1 week, then 4 mg PO/IV daily x 1 week, then STOP - Continue pantoprazole 40 mg PO/IV daily while the patient is receiving dexamethasone - Monitor the patient's blood sugars while the patient is receiving dexamethasone - From a radiation therapy perspective, she would be a candidate for whole brain radiation therapy as an outpatient upon discharge from hospital. - Pulmonology consulted - EBUS scheduling after EVD Assessment & Plan (08/25/2025 11:56 AM CDT): - Patient w no significant past medical history, reports one week hx of dizziness w ambulation - On exam, mild dysmetria on finger nose test, more noticeable on L side, otherwise unremarkable neuro exam - CT CAP: 3.7 cm concerning for primary malignancy. 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 Mild bilateral cerebellar tonsil descent causing crowding of the foramen magnum, compatible with early inferior cerebellar tonsillar herniation. No evidence of acute intracranial hemorrhage or infarct. 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 Plan: - Neurosurgery following - Continue to monitor neuro exam q4h - Anticipate OR on 08/29 for palliative CSF diversion with ETV and possible VPS placement - Okay for diet and activity as tolerated - Please hold anticoagulation/antiplatelet medications - Okay for dvt ppx - Continue decadron 4mg q4hr and keppra 500mg BID - [facility] planning whole brain radiation following discharge - Pulm planning EBUS/bronchoscopic biopsy following VPS placement - Recommend goals of care conversation - Overall care per primary team - Heme/onc consulted - If no NSGY biopsy/resection and functional status remains good, could potentially start chemotherapy inpatient based on lung biopsy results - TTE to evaluate pericardial effusion - Radiation onc consulted, appreciate recs - Need tissue diagnosis prior to treatment - Proceed with CSF shunting as appropriate per NSGY - Continue high dose dexamethasone as follows: 4 mg PO/IV QID x 1 week, then 4 mg PO/IV TID x 1 week, then 4 mg PO/IV BID x 1 week, then 4 mg PO/IV daily x 1 week, then STOP - Continue pantoprazole 40 mg PO/IV daily while the patient is receiving dexamethasone - Monitor the patient's blood sugars while the patient is receiving dexamethasone - From a radiation therapy perspective, she would be a candidate for whole brain radiation therapy as an outpatient upon discharge from hospital. - Pulmonology consulted, appreciate recs - Will await for [employer] shunt prior bronch scheduling given the risk of herniation, once [employer] shunt addressed will schedule for bronchoscopy with biopsy. Assessment & Plan (08/24/2025 1:01 PM CDT): - Patient w no significant past medical history, reports one week hx of dizziness w ambulation - On exam, mild dysmetria on finger nose test, more noticeable on L side, otherwise unremarkable neuro exam - CT CAP: 3.7 cm concerning for primary malignancy. 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 Mild bilateral cerebellar tonsil descent causing crowding of the foramen magnum, compatible with early inferior cerebellar tonsillar herniation. No evidence of acute intracranial hemorrhage or infarct. 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 - TTE to evaluate pericardial effusion - Radiation onc consulted, appreciate recs - Pulmonology consulted, appreciate recs - Continue keppra 500mg BID - Continue decadron 4mg q4hr - NPO for possible pulmonary biopsy - Q4H neurochecks - Daily CBC, BMP, Mag, Phos Assessment & Plan (08/24/2025 4:33 AM CDT): Patient w no significant past medical history, reports one week hx of dizziness w ambulation On exam, mild dysmetria on finger nose test, more noticeable on L side, otherwise unremarkable neuro exam CT CAP showin.7 cm concerning for primary malignancy. 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 MRI demonstrates multiple scattered lesions. CT CAP showing 3.7cm lung nodule w multiple other nodules and LAD concerning for metastatic disease. 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 Was briefly admitted to [facility] for post-op monitoring - s/p EBUS on 08/31 w/ pulm - path resulted as NSCLC Plan: - Comfort care -Lorazapam 0.5mg q4hr prn for angiety, agitation -oxy 2.5mg q4hr prn for moderate and severe pain -tylenol 650 q4hr prn for mild pain - Continue decadron 4mg BID for 7 days (until 09/13/25) followed by 4mg daily until 09/20/25. - continue Keppra 500mg BID for 2 weeks (EOT 09/13/25) Assessment & Plan (09/06/2025 3:07 PM CDT): - originally presented for 1 week of frequent falls/unsteady gait, nausea, dizziness w/ ambulation - CT scan showed left cerebellar edema and right temporal edema concerning for metastases. MRI demonstrates multiple scattered lesions. CT CAP showing 3.7cm lung nodule w multiple other nodules and LAD concerning for metastatic disease. 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 Was briefly admitted to [facility] for post-op monitoring - s/p EBUS on 08/31 w/ pulm - path resulted as NSCLC Plan: - Comfort care - Lorazapam 0.5mg q4hr prn for angiety, agitation -oxy 2.5mg q4hr prn for moderate and severe pain -tylenol 650 q4hr prn for mild pain - continue Decadron 4mg q6h - continue Keppra 500mg BID - pending hospice facility. Assessment & Plan (09/05/2025 4:58 PM CDT): - originally presented for 1 week of frequent falls/unsteady gait, nausea, dizziness w/ ambulation - CT scan showed left cerebellar edema and right temporal edema concerning for metastases. MRI demonstrates multiple scattered lesions. CT CAP showing 3.7cm lung nodule w multiple other nodules and LAD concerning for metastatic disease. 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 Was briefly admitted to [facility] for post-op monitoring - s/p EBUS on 08/31 w/ pulm - path resulted as NSCLC Plan: - Rad Onc rec hospice; does not rec whole brain RT given poor prognosis iso metastatic disease w/ innumerable brain lesions - consulted palliative care, appreciate assistance w/ GOC discussions. Will see on Friday - heme/onc following, appreciate recs - pulm s/o; f/u in pulm clinic within 1 mo - continue Decadron 4mg q6h + PPI for ppx - continue Keppra 500mg BID - Will work with Social work for setting up hospice in [facility] in [place], [place]. - per GOC with Nila, she agrees to starting comfort measures while inpatient - Will start low dose oxy and benzo prn Assessment & Plan (09/04/2025 11:23 AM CDT): - originally presented for 1 week of frequent falls/unsteady gait, nausea, dizziness w/ ambulation - CT scan showed left cerebellar edema and right temporal edema concerning for metastases. MRI demonstrates multiple scattered lesions. CT CAP showing 3.7cm lung nodule w multiple other nodules and LAD concerning for metastatic disease. 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 Was briefly admitted to [facility] for post-op monitoring - s/p EBUS on 08/31 w/ pulm - path resulted as NSCLC Plan: - Rad Onc rec hospice; does not rec whole brain RT given poor prognosis iso metastatic disease w/ innumerable brain lesions - consulted palliative care, appreciate assistance w/ GOC discussions. Will see on Friday - heme/onc following, appreciate recs - pulm s/o; f/u in pulm clinic within 1 mo - continue Decadron 4mg q6h + PPI for ppx - continue Keppra 500mg BID - continue q4 hours neurological checks - PT/OT rec acute rehab; likely poor benefit iso metastatic disease. Will discuss - fall precautions, delirium precautions - neurological checks Q4H Assessment & Plan (09/03/2025 12:50 PM CDT): - originally presented for 1 week of frequent falls/unsteady gait, nausea, dizziness w/ ambulation - CT scan showed left cerebellar edema and right temporal edema concerning for metastases. MRI demonstrates multiple scattered lesions. CT CAP showing 3.7cm lung nodule w multiple other nodules and LAD concerning for metastatic disease. 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 Was briefly admitted to [facility] for post-op monitoring - s/p EBUS on 08/31 w/ pulm - path resulted as NSCLC Plan: - Rad Onc rec hospice; does not rec whole brain RT given poor prognosis iso metastatic disease w/ innumerable brain lesions - consulted palliative care, appreciate assistance w/ GOC discussions. Will see on Friday - heme/onc following, appreciate recs - pulm s/o; f/u in pulm clinic within 1 mo - continue Decadron 4mg q6h + PPI for ppx - continue Keppra 500mg BID - continue q4 hours neurological checks - PT/OT rec acute rehab; likely poor benefit iso metastatic disease. Will discuss - fall precautions, delirium precautions - neurological checks Q4H Assessment & Plan (09/02/2025 3:15 PM CDT): - originally presented for 1 week of frequent falls/unsteady gait, nausea, dizziness w/ ambulation - CT scan showed left cerebellar edema and right temporal edema concerning for metastases. MRI demonstrates multiple scattered lesions. CT CAP showing 3.7cm lung nodule w multiple other nodules and LAD concerning for metastatic disease. 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 Was briefly admitted to [facility] for post-op monitoring - s/p EBUS on 08/31 w/ pulm - path resulted as NSCLC Plan: - Rad Onc rec hospice; does not rec whole brain RT given poor prognosis iso metastatic disease w/ innumerable brain lesions - consulted palliative care, appreciate assistance w/ GOC discussions. Will see on Friday - heme/onc following, appreciate recs - pulm s/o; f/u in pulm clinic within 1 mo - continue Decadron 4mg q6h + PPI for ppx - continue Keppra 500mg BID - continue q4 hours neurological checks - PT/OT rec acute rehab; likely poor benefit iso metastatic disease. Will discuss - d/c restraints - fall precautions, delirium precautions - neurological checks Q4H Assessment & Plan (09/01/2025 10:20 AM CDT): -Pulm EBUS 08/31 -F/u Path then discuss w/ H/O Assessment & Plan (08/31/2025 9:19 AM CDT): -Pulm scheduled for EBUS 08/31 -NPO currently Assessment & Plan (08/30/2025 10:07 PM CDT): Pulm scheduled for EBUS 08/31 NPO at midnight Assessment & Plan (08/28/2025 10:23 AM CDT): - Patient w no significant past medical history, reports one week hx of dizziness w ambulation - On exam, mild dysmetria on finger nose test, more noticeable on L side, otherwise unremarkable neuro exam - CT CAP: 3.7 cm concerning for primary malignancy. 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 Mild bilateral cerebellar tonsil descent causing crowding of the foramen magnum, compatible with early inferior cerebellar tonsillar herniation. No evidence of acute intracranial hemorrhage or infarct. 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 Plan: - Neurosurgery consulted - Continue to monitor neuro exam q4h - CTH 08/28 pending - OR on 08/29 for palliative CSF diversion with ETV and possible VPS placement - Hold anticoagulation/antiplatelet medications - Okay for dvt ppx [will hold AM dose] - Continue decadron and keppra - Heme/onc consulted - If no NSGY biopsy/resection and functional status remains good, could potentially start chemotherapy inpatient based on lung biopsy results - TTE without effusion, EF 66% - Radiation onc consulted - Need tissue diagnosis prior to treatment - Proceed with CSF shunting as appropriate per NSGY - Continue high dose dexamethasone as follows: 4 mg PO/IV QID x 1 week, then 4 mg PO/IV TID x 1 week, then 4 mg PO/IV BID x 1 week, then 4 mg PO/IV daily x 1 week, then STOP - Continue pantoprazole 40 mg PO/IV daily while the patient is receiving dexamethasone - Monitor the patient's blood sugars while the patient is receiving dexamethasone - From a radiation therapy perspective, she would be a candidate for whole brain radiation therapy as an outpatient upon discharge from hospital. - Pulmonology consulted - EBUS scheduling after EVD Assessment & Plan (08/27/2025 12:20 PM CDT): - Patient w no significant past medical history, reports one week hx of dizziness w ambulation - On exam, mild dysmetria on finger nose test, more noticeable on L side, otherwise unremarkable neuro exam - CT CAP: 3.7 cm concerning for primary malignancy. 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 Mild bilateral cerebellar tonsil descent causing crowding of the foramen magnum, compatible with early inferior cerebellar tonsillar herniation. No evidence of acute intracranial hemorrhage or infarct. 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 Plan: - Neurosurgery consulted - Continue to monitor neuro exam q4h - OR on 08/29 for palliative CSF diversion with ETV and possible VPS placement - Hold anticoagulation/antiplatelet medications - Okay for dvt ppx - Continue decadron and keppra - Heme/onc consulted - If no NSGY biopsy/resection and functional status remains good, could potentially start chemotherapy inpatient based on lung biopsy results - TTE without effusion, EF 66% - Radiation onc consulted - Need tissue diagnosis prior to treatment - Proceed with CSF shunting as appropriate per NSGY - Continue high dose dexamethasone as follows: 4 mg PO/IV QID x 1 week, then 4 mg PO/IV TID x 1 week, then 4 mg PO/IV BID x 1 week, then 4 mg PO/IV daily x 1 week, then STOP - Continue pantoprazole 40 mg PO/IV daily while the patient is receiving dexamethasone - Monitor the patient's blood sugars while the patient is receiving dexamethasone - From a radiation therapy perspective, she would be a candidate for whole brain radiation therapy as an outpatient upon discharge from hospital. - Pulmonology consulted - EBUS scheduling after EVD Assessment & Plan (08/26/2025 12:42 PM CDT): - Patient w no significant past medical history, reports one week hx of dizziness w ambulation - On exam, mild dysmetria on finger nose test, more noticeable on L side, otherwise unremarkable neuro exam - CT CAP: 3.7 cm concerning for primary malignancy. 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 Mild bilateral cerebellar tonsil descent causing crowding of the foramen magnum, compatible with early inferior cerebellar tonsillar herniation. No evidence of acute intracranial hemorrhage or infarct. 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 Plan: - Neurosurgery consulted - Continue to monitor neuro exam q4h - OR on 08/29 for palliative CSF diversion with ETV and possible VPS placement - Okay for diet and activity as tolerated - Please hold anticoagulation/antiplatelet medications - Okay for dvt ppx - Continue decadron and keppra - Heme/onc consulted - If no NSGY biopsy/resection and functional status remains good, could potentially start chemotherapy inpatient based on lung biopsy results - TTE without effusion, EF 66% - Radiation onc consulted - Need tissue diagnosis prior to treatment - Proceed with CSF shunting as appropriate per NSGY - Continue high dose dexamethasone as follows: 4 mg PO/IV QID x 1 week, then 4 mg PO/IV TID x 1 week, then 4 mg PO/IV BID x 1 week, then 4 mg PO/IV daily x 1 week, then STOP - Continue pantoprazole 40 mg PO/IV daily while the patient is receiving dexamethasone - Monitor the patient's blood sugars while the patient is receiving dexamethasone - From a radiation therapy perspective, she would be a candidate for whole brain radiation therapy as an outpatient upon discharge from hospital. - Pulmonology consulted - EBUS scheduling after EVD Assessment & Plan (08/25/2025 11:56 AM CDT): - Patient w no significant past medical history, reports one week hx of dizziness w ambulation - On exam, mild dysmetria on finger nose test, more noticeable on L side, otherwise unremarkable neuro exam - CT CAP: 3.7 cm concerning for primary malignancy. 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 Mild bilateral cerebellar tonsil descent causing crowding of the foramen magnum, compatible with early inferior cerebellar tonsillar herniation. No evidence of acute intracranial hemorrhage or infarct. 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 Plan: - Neurosurgery following - Continue to monitor neuro exam q4h - Anticipate OR on 08/29 for palliative CSF diversion with ETV and possible VPS placement - Okay for diet and activity as tolerated - Please hold anticoagulation/antiplatelet medications - Okay for dvt ppx - Continue decadron 4mg q4hr and keppra 500mg BID - [facility] planning whole brain radiation following discharge - Pulm planning EBUS/bronchoscopic biopsy following VPS placement - Recommend goals of care conversation - Overall care per primary team - Heme/onc consulted - If no NSGY biopsy/resection and functional status remains good, could potentially start chemotherapy inpatient based on lung biopsy results - TTE to evaluate pericardial effusion - Radiation onc consulted, appreciate recs - Need tissue diagnosis prior to treatment - Proceed with CSF shunting as appropriate per NSGY - Continue high dose dexamethasone as follows: 4 mg PO/IV QID x 1 week, then 4 mg PO/IV TID x 1 week, then 4 mg PO/IV BID x 1 week, then 4 mg PO/IV daily x 1 week, then STOP - Continue pantoprazole 40 mg PO/IV daily while the patient is receiving dexamethasone - Monitor the patient's blood sugars while the patient is receiving dexamethasone - From a radiation therapy perspective, she would be a candidate for whole brain radiation therapy as an outpatient upon discharge from hospital. - Pulmonology consulted, appreciate recs - Will await for [employer]ACH[employer] shunt prior bronch scheduling given the risk of herniation, once MACH[employer] shunt addressed will schedule for bronchoscopy with biopsy. Assessment & Plan (08/24/2025 1:01 PM CDT): - Patient w no significant past medical history, reports one week hx of dizziness w ambulation - On exam, mild dysmetria on finger nose test, more noticeable on L side, otherwise unremarkable neuro exam - CT CAP: 3.7 cm concerning for primary malignancy. 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 Mild bilateral cerebellar tonsil descent causing crowding of the foramen magnum, compatible with early inferior cerebellar tonsillar herniation. No evidence of acute intracranial hemorrhage or infarct. 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 - TTE to evaluate pericardial effusion - Radiation onc consulted, appreciate recs - Pulmonology consulted, appreciate recs - Continue keppra 500mg BID - Continue decadron 4mg q4hr - NPO for possible pulmonary biopsy - Q4H neurochecks - Daily CBC, BMP, Mag, Phos Assessment & Plan (08/24/2025 4:33 AM CDT): Patient w no significant past medical history, reports one week hx of dizziness w ambulation On exam, mild dysmetria on finger nose test, more noticeable on L side, otherwise unremarkable neuro exam CT CAP showin.7 cm concerning for primary malignancy. 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 w metastases to brain Neurosurgery consulted in ED Plan: - neurosurgery following, f/u recs - ordered MRI brain wwo, f/u results - started keppra 500mg BID - started decadron 4mg q4hr - NPO at midnight for possible surgery in the AM - consult order for oncology and radiation oncology placed, formal consult in AM - q4hr neurochecks - daily CBC, BMP, Mag, Phos Resolved Problems Problem Noted Date Diagnosed Date Resolved Date Atrial fibrillation with rap id ventricular response 09/02/2025 09/02/2025 Assessment & Plan (09/02/2025 3:08 PM CDT): - had a brief episode of Afib with RVR and converted to NSR with IV metoprolol Plan: - CTM Encounters Date Type Department Care Team Description 09/21/2025 Telephone [facility] - Pulmonology [address] [facility], [place] [address] Sean Santos MD Appointment 09/12/2025 Telephone [facility] [address] [place] [address] Melissa Roa, RN Future Appointment 09/02/2025 Orders Only [facility] HEM[facility] CLN CTR2 [address] [place] [id number] Althea Lin MD 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) 08/31/2025 9:30 AM CDT Anesthesia Event [facility] [address] [place] [phone] Adela Hennessy MD Shaffer, Hannah, [facility] 08/31/2025 9:00 AM CDT - 08/31/2025 10:30 AM CDT Surgery [facility] [address] [place] [phone] Rafael Manzo MD BRONCHOSCOPY WITH ENDOBRONCHIAL ULTRASOUND (EBUS) 08/29/2025 7:24 AM CDT Anesthesia Event [facility] [address] [place] [address] Michael Leon MD Mette, Katherine A, SNOW PLOW TRACTOR OPERATOR-PAY STATION COLLECTOR 08/29/2025 7:05 AM CDT - 08/29/2025 10:50 AM CDT Surgery [facility] [address] [place] [address] Lonnie Fong MD Endoscopic Third ventriculostomy, possible right ventriculoperitoneal shunt placement 08/23/2025 6:04 PM CDT - 09/07/2025 6:15 PM CDT Hospital Encounter [facility] 5N ACUTE [address] [place] [address] Brandon Bee MD Vaidyan, Philip B, Aung Quinonez III, Harman Gottlieb, Carmen Bauer, Lucio Hewitt MD Hospitalist Discharge Disposition: Hospice:Medical Facility 08/23/2025 Travel from Last 3 Months Social History Tobacco Use Types Packs/Day Years Used Date Smoking Tobacco: Never Smokeless Tobacco: Never Tobacco Cessation:Counseling Given: Not Answered Alcohol Use Standard Drinks/Week Comments Not Currently [...] care, and heating? Not very hard 08/24/2025 [facility] Occupat ional Health - Occupational Stress [...] any time in the past 12 m [facility], were you homeless or living in a care home (including now)? No 08/24/2025 Comments No Sex and Gender Information Value Date Recorded Sex Assigned at Not on file Legal Sex Female 4:57 PM CDT Gender Identity Not on file Sexual Orientation Not on file Last Filed Vital Signs Vital Sign Reading Time Taken Comments Blood Pressure 114/88 09/06/2025 8:20 AM CDT Pulse 80 09/06/2025 8:20 AM CDT Temperature 36.5 C (97.7 F) 09/06/2025 8:21 AM CDT Respiratory Rate 20 09/06/2025 12:38 AM CDT Oxygen Saturation 100% 09/06/2025 8:20 AM CDT Inhaled Oxygen Concentration - - Weight 49.9 kg (110 lb) 08/24/2025 3:21 AM CDT Height 154.9 cm (5' 0.98) 08/24/2025 3:21 AM CD T Body Mass Index 20.8 08/24/2025 3:21 AM CDT Plan of Treatment Upcoming Encounters Date Type Department Care Team (Late st Contact Info) Description 10/24/2025 4:00 PM BOG WORKER Office Visit [facility] - Pulmonology [address] [place] [address], [place] [phone] Sean Santos MD [address] [place] [address] [address] DIV OF [facility] INTER[facility] [place] [address] Health Maintenance Due Date Last Done Comments BONE DENSITY TESTING 1955 COLOGUARD (AGES 45-75) - COL ON CA SCREENING 1957 COLON MONITORING 1957 COLONOSCOPY - COLON CA SCREENING 1957 CT COLONOGRAPHY - COLON CA SCREENING 1957 Colorectal Cancer Screening 1957 FIT - COLON CA SCREENING 1957 FLEX SIG - COLON CA SCREENING 1957 LIPID TESTING 1957 MAMMOGRAM 1957 MEDICARE AWV 12 MONTHS 1957 HEPATITIS C SCREENING 10/14/1975 DTAP/TDAP/TD VACCINES (1 - Tdap) 1976 PNEUMOCOCCAL VACCINE 50+ (1 of 2 - PCV) 1976 ZOSTER VACCINE (1 of 2) 1976 Respiratory Syncytial Virus (RSV) Vaccine Pt: or over 60 yrs (1 - Risk 60-74 years 1-dose series) 2017 DEPRESSION SCREENING 11/24/2024 COVID-19 VACCINE ( - 2023-2 5 season) 2025 INFLUENZA VACCINE (#1) 2025 HEPATITIS B VACCINE Aged Out No longe r eligible based on patient's age to complete this topic HIB VACCINE Aged Out No longer eligi ble based on patient's age to complete this topic HPV VACCINE Aged Out No longer eligi ble based on patient's age to complete this topic MENINGOCOCCAL (Group B) VACC INE SHARED DECISION-MAKING Aged Out No longer eligibl e based on patient's age to complete this topic MENINGOCOCCAL GROUPS A/C/Y/W VACCINE Aged Out No longer eligible b ased on patient's age to complete this topic Medical Devices Implanted Type Area Asset Specialist Device Identifier Shelf Expiration Date Model / Serial / Lot Michael Screw 1.5mm 4mm Slf Drl Ax Stab Crnl Implanted:Qty : 3 on 08/29/2025 by Lonnie Fong MD at [facility] [place] [employer] [id number] BILL ONLY / / Cover Bur Hl 10mm Unv Neuro Iii Lopro Implanted:Qty : 1 on 08/29/2025 by Lonnie Fong MD at [facility] N/A: Cranial [place] Craniomaxillofacial [id number] / / Procedures Procedure Name Priority Date/Time Associated Diagnosis Comments GLUCOSE - POINT OF CARE Routine 09/05/2025 4:33 PM CDT GLUCOSE - POINT OF CARE Routine 09/05/2025 11:24 AM CDT GLUCOSE - POINT OF CARE Routine 09/05/2025 9:03 AM CDT PHOSPHORUS BLOOD Routine 09/05/2025 5:37 AM CDT MAGNESIUM BLOOD Routine 09/05/2025 5:37 AM CDT CBC W/O DIFFERENTIAL Routine 09/05/2025 5:37 AM CDT BASIC METABOLIC PANEL (CALCIUM TOTAL) Routine 09/05/2025 5:37 AM CDT GLUCOSE - POINT OF CARE Routine 09/04/2025 7:53 PM CDT GLUCOSE - POINT OF CARE Routine 09/04/2025 4:47 PM CDT GLUCOSE - POINT OF CARE Routine 09/04/2025 11:46 AM CDT GLUCOSE - POINT OF CARE Routine 09/04/2025 8:11 AM CDT PHOSPHORUS BLOOD Routine 09/04/2025 4:23 AM CDT MAGNESIUM BLOOD Routine 09/04/2025 4:23 AM CDT CBC W/O DIFFERENTIAL Routine 09/04/2025 4:23 AM CDT BASIC METABOLIC PANEL (CALCIUM TOTAL) Routine 09/04/2025 4:23 AM CDT GLUCOSE - POINT OF CARE Routine 09/03/2025 8:20 PM CDT GLUCOSE - POINT OF CARE Routine 09/03/2025 4:01 PM CDT GLUCOSE - POINT OF CARE Routine 09/03/2025 12:05 PM CDT GLUCOSE - POINT OF CARE Routine 09/03/2025 9:30 AM CDT PHOSPHORUS BLOOD Routine 09/02/2025 8:35 PM CDT MAGNESIUM BLOOD Routine 09/02/2025 8:35 PM CDT CBC W/O DIFFERENTIAL Routine 09/02/2025 8:35 PM CDT BASIC METABOLIC PANEL (CALCIUM TOTAL) Routine 09/02/2025 8:35 PM CDT TEMPUS XT DNA AND RNA SOLID TUMOR Routine 09/02/2025 7:33 PM CDT 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) GLUCOSE - POINT OF CARE Routine 09/02/2025 4:17 PM CDT US PELVIS COMPLETE Routine 09/02/2025 1: 56 PM CDT Fluid in endometrial cavity GLUCOSE - POINT OF CARE Routine 09/02/2025 11:47 AM CDT GLUCOSE - POINT OF CARE Routine 09/02/2025 7:53 AM CDT PHOSPHORUS BLOOD Routine 09/01/2025 11:33 PM CDT MAGNESIUM BLOOD Routine 09/01/2025 11:33 PM CDT CBC W/O DIFFERENTIAL Routine 09/01/2025 11:33 PM CDT BASIC METABOLIC PANEL (CALCIUM TOTAL) Routine 09/01/2025 11:33 PM CDT GLUCOSE - POINT OF CARE Routine 09/01/2025 3:34 PM CDT GLUCOSE - POINT OF CARE Routine 09/01/2025 12:21 PM CDT GLUCOSE - POINT OF CARE Routine 09/01/2025 7:57 AM CDT PHOSPHORUS BLOOD Routine 09/01/2025 3:56 AM CDT MAGNESIUM BLOOD Routine 09/01/2025 3:56 AM CDT CBC W/O DIFFERENTIAL Routine 09/01/2025 3:56 AM CDT BASIC METABOLIC PANEL (CALCIUM TOTAL) Routine 09/01/2025 3:56 AM CDT GLUCOSE - POINT OF CARE Routine 08/31/2025 8:08 PM CDT GLUCOSE - POINT OF CARE Routine 08/31/2025 4:52 PM CDT GLUCOSE - POINT OF CARE Routine 08/31/2025 1:14 PM CDT XR CHEST 1VW PORTABLE Routine 08/31/2025 11:36 AM CDT Status post bronchoscopy PATHOLOGY TISSUE Routine 08/31/2025 10:[address] lung screening FINE NEEDLE ASPIRATION (STL) Routine 08/31/2025 10:33 AM CDT Pulmonary nodule 1 cm or greater in diameter ENDOTRACHEAL TUBE NOTE Routine 08/31/2025 10:00 AM CDT IA BRONCH EBUS SAMPLNG 1 OR 2 NODE 08/31/2025 9:[address] lung screening GLUCOSE - POINT OF CARE Routine 08/31/2025 8:43 AM CDT GLUCOSE - POINT OF CARE Routine 08/31/2025 8:08 AM CDT BRONCHOSCOPY Routine 08/31/2025 8:03 AM CDT PHOSPHORUS BLOOD Routine 08/31/2025 12:00 AM CDT MAGNESIUM BLOOD Routine 08/31/2025 12:00 AM CDT CBC W/O DIFFERENTIAL Routine 08/31/2025 12:00 AM CDT BASIC METABOLIC PANEL (CALCIUM TOTAL) Routine 08/31/2025 12:00 AM CDT GLUCOSE - POINT OF CARE Routine 08/30/2025 9:49 PM CDT GLUCOSE - POINT OF CARE Routine 08/30/2025 11:49 AM CDT PT EVAL AND TREAT Routine 08/30/2025 8:5 4 AM CDT GLUCOSE - POINT OF CARE Routine 08/30/2025 8:34 AM CDT GLUCOSE - POINT OF CARE Routine 08/30/2025 7:02 AM CDT BASIC METABOLIC PANEL (CALCIUM TOTAL) STAT 08/30/2025 5:26 AM CDT BASIC METABOLIC PANEL (CALCIUM TOTAL) STAT 08/30/2025 3:48 AM CDT PHOSPHORUS BLOOD Routine 08/29/2025 10:29 PM CDT MAGNESIUM BLOOD Routine 08/29/2025 10:29 PM CDT CBC W/O DIFFERENTIAL Routine 08/29/2025 10:29 PM CDT BASIC METABOLIC PANEL (CALCIUM TOTAL) Routine 08/29/2025 10:29 PM CDT GLUCOSE - POINT OF CARE Routine 08/29/2025 10:24 PM CDT GLUCOSE - POINT OF CARE Routine 08/29/2025 6:16 PM CDT OT EVAL AND TREAT Routine 08/29/2025 4:4 1 PM CDT GLUCOSE - POINT OF CARE Routine 08/29/2025 3:42 PM CDT EKG 12-LEAD STAT 08/29/2025 9:20 AM CDT Cerebellar mass ENDOTRACHEAL TUBE NOTE Routine 08/29/2025 7:46 AM CDT IA VENTRIC-CISTERN,3RD VENT,STEREOTAC 08/29/2025 7:00 AM CDT Obstructive hydrocephalus (HCC) Case Notes SupineEndoscopic Video CartStealth Special Needs Supine, stealth--- Please use warm LR---the tubing for scope is in the neuro cart. MICHAEL 08/25 XR PELVIS 1 OR 2VW STAT 08/29/2025 3: 20 AM CDT Cerebellar ataxia (HCC) PHOSPHORUS BLOOD Routine 08/29/2025 2:33 AM CDT MAGNESIUM BLOOD Routine 08/29/2025 2:33 AM CDT CBC W/O DIFFERENTIAL Routine 08/29/2025 2:33 AM CDT BASIC METABOLIC PANEL (CALCIUM TOTAL) Routine 08/29/2025 2:33 AM CDT GLUCOSE - POINT OF CARE Routine 08/29/2025 2:07 AM CDT GLUCOSE - POINT OF CARE Routine 08/28/2025 9:09 PM CDT GLUCOSE - POINT OF CARE Routine 08/28/2025 5:52 PM CDT GLUCOSE - POINT OF CARE Routine 08/28/2025 12:[address] HEAD WO CONTRAST Routine 08/28/2025 10:11 AM CDT Cerebellar mass GLUCOSE - POINT OF CARE Routine 08/28/2025 8:02 AM CDT TYPE + SCREEN PANEL Routine 08/28/2025 12:26 AM CDT Obstructive hydrocephalus (HCC) GLUCOSE - POINT OF CARE Routine 08/27/2025 10:17 PM CDT GLUCOSE - POINT OF CARE Routine 08/27/2025 9:02 PM CDT PHOSPHORUS BLOOD Routine 08/27/2025 8:02 PM CDT MAGNESIUM BLOOD Routine 08/27/2025 8:02 PM CDT CBC W/O DIFFERENTIAL Routine 08/27/2025 8:02 PM CDT BASIC METABOLIC PANEL (CALCIUM TOTAL) Routine 08/27/2025 8:02 PM CDT GLUCOSE - POINT OF CARE Routine 08/27/2025 6:16 PM CDT GLUCOSE - POINT OF CARE Routine 08/27/2025 5:18 PM CDT GLUCOSE - POINT OF CARE Routine 08/27/2025 12:11 PM CDT GLUCOSE - POINT OF CARE Routine 08/27/2025 8:02 AM CDT PHOSPHORUS BLOOD Routine 08/26/2025 7:01 PM CDT MAGNESIUM BLOOD Routine 08/26/2025 7:01 PM CDT CBC W/O DIFFERENTIAL Routine 08/26/2025 7:01 PM CDT BASIC METABOLIC PANEL (CALCIUM TOTAL) Routine 08/26/2025 7:01 PM CDT GLUCOSE - POINT OF CARE Routine 08/26/2025 5:19 PM CDT GLUCOSE - POINT OF CARE Routine 08/26/2025 11:37 AM CDT GLUCOSE - POINT OF CARE Routine 08/26/2025 7:59 AM CDT GLUCOSE - POINT OF CARE Routine 08/26/2025 5:34 AM CDT PHOSPHORUS BLOOD Routine 08/26/2025 3:41 AM CDT MAGNESIUM BLOOD Routine 08/26/2025 3:41 AM CDT CBC W/O DIFFERENTIAL Routine 08/26/2025 3:41 AM CDT BASIC METABOLIC PANEL (CALCIUM TOTAL) Routine 08/26/2025 3:41 AM CDT GLUCOSE - POINT OF CARE Routine 08/25/2025 11:32 PM CDT GLUCOSE - POINT OF CARE Routine 08/25/2025 5:07 PM CDT GLUCOSE - POINT OF CARE Routine 08/25/2025 12:13 PM CDT BASIC METABOLIC PANEL (CALCIUM TOTAL) Routine 08/25/2025 5:05 AM CDT PHOSPHORUS BLOOD Routine 08/25/2025 5:05 AM CDT MAGNESIUM BLOOD Routine 08/25/2025 5:05 AM CDT CBC W/O DIFFERENTIAL Routine 08/25/2025 5:05 AM CDT ECHO COMPLETE W CONTRAST Routine 08/24/2025 4:27 PM CDT Lung mass Cerebellar mass PT EVAL AND TREAT Routine 08/24/2025 11:47 AM CDT OT EVAL AND TREAT Routine 08/24/2025 11:47 AM CDT BASIC METABOLIC PANEL (CALCIUM TOTAL) Routine 08/24/2025 6:06 AM CDT PHOSPHORUS BLOOD Routine 08/24/2025 6:06 AM CDT MAGNESIUM BLOOD Routine 08/24/2025 6:06 AM CDT CBC W/O DIFFERENTIAL Routine 08/24/2025 6:05 AM CDT EKG 12-LEAD Routine 08/24/2025 1:18 AM CDT Lung mass EKG 12-LEAD Routine 08/23/2025 11:50 PM CDT Lung mass MRI BRAIN WWO CONTRAST STAT 08/23/2025 10:17 PM CDT Obstructive hydrocephalus (HCC) BLOOD TYPE VERIFICATION STAT 08/23/2025 10:05 PM CDT TYPE + SCREEN PANEL STAT 08/23/2025 8 :21 PM CDT PTT Routine 08/23/2025 8:21 PM CDT PT-INR STAT 08/23/2025 8:[address] CHEST ABDOMEN PELVIS W CONT STAT 08/23/2025 8:14 PM CDT Obstructive hydrocephalus (HCC) COMPREHENSIVE METABOLIC PANEL STAT 08/23/2025 6:51 PM CDT CBC W AUTO DIFFERENTIAL STAT 08/23/2025 6:51 PM CDT from Last 3 Months Results * (ABNORMAL) GLUCOSE - POINT OF CARE (09/05/2025 4:33 PM CDT) Only the most recent of47 resultswithin the time period is included. Glucose WB/POC 127(H) 70 - 99 mg/dL 09/05/2025 4:37 PM CDT [facility] Specimen Type Arterial/C apillary 09/05/2025 4:37 PM CDT [facility] Blood BLOOD SPECIMEN / Unknown 09/05/2025 4:33 PM CDT 09/05/2025 4:37 PM CDT Lucio Jones MD LAB - POINT OF CARE ORDERABLE S Final Result [facility] [address] [place] [address], [facility] [phone] * (ABNORMAL) CBC W/O DIFFERENTIAL (09/05/2025 5:37 AM CDT) Only the most recent of13 resultswithin the time period is included. WBC 13.0(H) 4.0 - 10.7 x10E9/L 09/05/2025 6:15 AM [facility] RBC Count 4.67 3.90 - 5.20 x10E12/L 09/05/2025 6:15 AM [facility] Hemoglobin 14.2 11.9 - 15.8 g/dL 09/05/2025 6:15 AM [facility] Hematocrit 39.7 34.8 - 46.1 % 09/05/2025 6:15 AM [facility] MCV 85.0 80.0 - 98.0 fL 09/05/2025 6:15 AM [facility] MCH 30.4 26.7 - 33.6 pg 09/05/2025 6:15 AM [facility] MCHC 35.8 31.7 - 36.3 g/dL 09/05/2025 6:15 AM [facility] RDW-CV 12.0 11.3 - 14.8 % 09/05/2025 6:15 AM [facility] Platelet Count 252 150 - 420 x10E9/L 09/05/2025 6:15 AM [facility] MPV 9.1 7.8 - 11.4 fL 09/05/2025 6:15 AM [facility] Blood BLOOD SPECIMEN / Unknown Lab Venipuncture / Unknown 09/05/2025 5:37 AM CDT 09/05/2025 6:05 AM CDT us Aung Huang III, MD LAB - HEMATOLOGY ORDERA BLES Final Result [facility] [address] [place] [address], [facility] [phone] * (ABNORMAL) BASIC METABOLIC PANEL (CALCIUM TOTAL) (09/05/2025 5:37 AM CDT) Only the most recent of15 resultswithin the time period is included. BUN 14 7 - 26 mg/dL 09/05/2025 7:18 AM [facility] Creatinine 0.60 0.56 - 0.96 mg/dL 09/05/2025 7:18 AM [facility] Sodium 137 136 - 145 mmol/L 09/05/2025 7:18 AM [facility] Potassium 4.4 3.5 - 4.5 mmol/L 09/05/2025 7:18 AM [facility] Chloride 101 98 - 107 mmol/L 09/05/2025 7:18 AM [facility] CO2 28 22 - 29 mmol/L 09/05/2025 7:18 AM [facility] Glucose 104(H) 70 - 99 mg/dL 09/05/2025 7:18 AM [facility] Calcium 7.8(L) 8.4 - 10.2 mg/dL 09/05/2025 7:18 AM [facility] Anion Gap 8 6 - 16 09/05/2025 7:18 AM [facility] BUN/Creatinine Ratio 23 7 - 23 09/05/2025 7:18 AM [facility] Osmolality Calculated 285 275 - 295 mOsm/kg 09/05/2025 7:18 AM [facility] eGFR by CKD-EPI >90 >=90 mL/min/1.7 3 m2 09/05/2025 7:18 AM [facility] Comment:Estimated Glomerular Filtration Rate (eGFR) calculated using the CKD-EPI Creatinine Equation (2020), per the National Kidney Foundation and [place] [employer]ph[employer] recommendations. Blood BLOOD SPECIMEN / Unknown Lab Venipuncture / Unknown 09/05/2025 5:37 AM CDT 09/05/2025 6:06 AM CDT us Aung Huang III, MD LAB - CHEMISTRY ORDERAB LES Final Result [address] [address], [place] [phone] * PHOSPHORUS BLOOD (09/05/2025 5:37 AM CDT) Only the most recent of13 resultswithin the time period is included. Phosphorus 3.1 2.9 - 5.1 mg/dL 09/05/2025 7:18 AM CDT [facility] Blood BLOOD SPECIMEN / Unknown Lab Venipuncture / Unknown 09/05/2025 5:37 AM CDT 09/05/2025 6:06 AM CDT us Aung Huang III, MD LAB - CHEMISTRY ORDERAB LES Final Result Performing Organization Address City/[facility]/ZIP Co de Phone Number [address] [address], [place] [phone] * MAGNESIUM BLOOD (09/05/2025 5:37 AM CDT) Only the most recent of13 resultswithin the time period is included. Magnesium 2.3 1.6 - 2.6 mg/dL 09/05/2025 7:18 AM CDT [facility] Blood BLOOD SPECIMEN / Unknown Lab Venipuncture / Unknown 09/05/2025 5:37 AM CDT 09/05/2025 6:06 AM CDT us Aung Huang III, MD LAB - CHEMISTRY ORDERAB LES Final Result [address] [address], [place] [phone] * US Pelvis Complete (09/02/2025 1:56 PM CDT) Anatomical Region Laterality Modality Pelvis Ultrasound 09/02/2025 2:51 PM CDT Impressions 09/02/2025 5:05 PM CDT IMPRESSION: Severely limited exam due to unfilled bladder; patient unable to tolerate transvaginal exam due to pain; patient confusion. 1.There is abnormal complex fluid within the uterus with internal debris. Unable to characterize due to poor exam quality. May consider ultrasound follow-up at a later date if patient is able to tolerate. > Dictated by Jona Corona M.D. educational institution president > Dictated by Dielectric Embossing Machine Operator Tico Watson MD have personally reviewed and interpreted this examination/study. > Interpreting Provider: Tico Mariscal MD on 09/02/2025 5:05 PM Narrative 09/02/2025 5:05 PM CDT PROCEDURE: US PELVIS COMPLETE, DATE/TIME OF EXAM: 09/02/2025 1:56 PM, LOCATION [facility] INDICATION: N85.9: Fluid in endometrial cavity ADDITIONAL CLINICAL INFORMATION: Ordering Provider Reason For Exam: eval metastatic disease and endometrial fluid seen on interior block wirer Note: Patient unable to hold bladder; patient unable to tolerate transvaginal exam due to pain; bladder not filled: Patient confused Additional: COMPARISON: CT chest abdomen pelvis with contrast 08/23/2025 TECHNIQUE: Transabdominal ultrasound of the pelvis with color Doppler imaging. FINDINGS: Severely limited exam due to unfilled bladder and patient unable to tolerate transvaginal exam due to pain. Attempted to perform ultrasound exam on 2 successive days with patient unable to fill the bladder, hold her bladder, or tolerate pain of exam. Uterus: 5.6 x 3.8 x 4.2 cm There is complex fluid within the endometrial cavity with internal debris. Procedure Note Yue Mariscal MD - 09/02/2025 PROCEDURE: US PELVIS COMPLETE, DATE/TIME OF EXAM: 09/02/2025 1:56 PM, LOCATION [facility] INDICATION: N85.9: Fluid in endometrial cavity ADDITIONAL CLINICAL INFORMATION: Ordering Provider Reason For Exam: eval metastatic disease andendometrial fluid seen on interior block wirer Note: Patient unable to hold bladder; patient unable to tolerate transvaginal exam due to pain; bladder not filled: Patient confused Additional: COMPARISON: CT chest abdomen pelvis with contrast 08/23/2025 TECHNIQUE: Transabdominal ultrasound of the pelvis with color Doppler imaging. FINDINGS: Severely limited exam due to unfilled bladder and patient unable to tolerate transvaginal exam due to pain. Attempted to perform ultrasound exam on 2 successive days with patient unable to fill the bladder, holdher bladder, or tolerate pain of exam. Uterus: 5.6 x 3.8 x 4.2 cm There is complex fluid within the endometrial cavity with internaldebris. IMPRESSION: Severely limited exam due to unfilled bladder; patient unable totolerate transvaginal exam due to pain; patient confusion. 1.There is abnormal complex fluid within the uterus with internaldebris. Unable to characterize due to poor exam quality. May consider ultrasound follow-up at a later date if patient is able to tolerate. > Dictated by Jona Corona M.D. educational institution president > Dictated by Dielectric Embossing Machine Operator Tico Watson MD have personally reviewed and interpreted this examination/study. > Interpreting Provider: Tico Mariscal MD on 09/02/2025 5:05 PM us Carmen Anguiano DO US ORDERABLES Final Result * XR Chest 1Vw Portable (08/31/2025 11:36 AM CDT) Anatomical Region Laterality Modality Chest Digital Radiogra phy 09/01/2025 1:34 AM CDT Impressions 09/01/2025 1:35 AM CDT Impression: Unchanged left upper lobe masslike consolidation measuring 3.3 cm.There is no pleural effusion.There is no pneumothorax. The cardiomediastinal silhouette is stable. > Interpreting Provider: Humza Chavez MD on 09/01/2025 1:35 AM Narrative 09/01/2025 1:35 AM CDT PROCEDURE: XR CHEST 1VW PORTABLE, DATE/TIME OF EXAM: 08/31/2025 11:36 AM, LOCATION [facility] INDICATION: Z98.890: Status post bronchoscopy ADDITIONAL CLINICAL INFORMATION: Ordering Provider Reason For Exam: s/p bronch Technologist Note: Additional: COMPARISON: 08/23/2025, CT CHEST ABDOMEN PELVIS W CONT Procedure Note Humza Chavez MD - 09/01/2025 PROCEDURE: XR CHEST 1VW PORTABLE, DATE/TIME OF EXAM: 08/31/2025 11:36AM, LOCATION [facility] INDICATION: Z98.890: Status post bronchoscopy ADDITIONAL CLINICAL INFORMATION: Ordering Provider Reason For Exam: s/p bronch Technologist Note: Additional: COMPARISON: 08/23/2025, CT CHEST ABDOMEN PELVIS W CONT Impression: Unchanged left upper lobe masslike consolidation measuring 3.3 cm.Thereis no pleural effusion.There is no pneumothorax. The cardiomediastinal silhouette is stable. > Interpreting Provider: Humza Chavez MD on 09/01/2025 1:35 AM us Sean Chu MD DIAGNOSTIC IMAGING ORDE RABLES Final Result * PATHOLOGY TISSUE (08/31/2025 10:38 AM CDT) Case Report Surgical Pathology Report Case: [id number] Authorizing Provider: Rafael Manzo MD Collected: 08/31/2025 10:38 AM Ordering Location: [facility] Received: 08/31/2025 01:27 PM Pathologist: Nahomy Enriquez MD Specimen: Lymph Node Biopsy, 4R 09/05/2025 10:30 AM CDT [facility] Final Diagnosis Lymph node, 4R, biopsy (A): - Pulmonary adenocarcinoma 09/05/2025 10:30 AM CDT [facility] [facility] at 1546 CDT Microscopic Description and Comment The biopsy shows a single minute fragment of tissue with epithelioid cells showing marked nuclear enlargement and pleomorphism. The cells have atypical mitotic figures and abundant pale cytoplasm. No definitive buster architecture is present. Cells are strongly positive for CK7 and CAM5.2 with focal nuclear TTF-1. P40 and CK20 are negative. 09/05/2025 10:30 AM CDT [facility] Clinical History The patient is a 69-year-old woman with left upper lobe mass measuring 3.7 x 2.4 x 3.0 cm concerning for primary malignancy. Additional satellite nodules are seen, which are endobronchial within the left upper lobe measuring up to 1.2 cm which could represent metastasis disease. Small pulmonary nodules are seen within the contralateral lung. She also has lymphadenopathy. 09/05/2025 10:30 AM [facility] Gross Description Received in formalin, labeled with the patient's name Tessie Batch, specimen A, consists of a 0.3 x 0.2 x 0.2 cm red-brown irregular tissue fragment which is submitted in toto in a single cassette labeled A1. RB 09/05/2025 10:30 AM [facility] Addendum 1 A request for Tempus xT & xR and PD-L1 (22C3, 28-8, SP142 and SP263) was received 09/05/25 for patient Tessie Batch from Dr. Pietro Gonzales. The test is to be performed on tissue from case [id number]. The case report, slides, and blocks for the cited accession were retrieved from the archives. The pathologist whose signature appears below reviewed the original pathology report, examined candidate H&E slides, and selected the block (A1) appropriate to the specifications of the ordered molecular analysis. The tissue was forwarded to [facility] where the subject molecular tests will be performed. 09/05/2025 10:30 AM [facility] Addendum electronically signed by Nahomy Enriquez MD on 09/05/2025 at 1030 CDT Pathologist Location at [facility] 09/05/2025 10:30 AM [facility] Disclaimer The performance characteristics of all immunohistochemical and indirect immunofluorescence stains (if any) cited in this report were determined by the Histopathology Laboratory of [facility]. Some of these tests were developed by our own laboratory and have not been cleared or approved by the US Food and Drug Administration. The FDA does not require this test to go through premarket FDA review. These tests are used for clinical purposes. They should not be regarded as investigational or for research. This laboratory is certified under the Clinical Laboratory Improvement Amendments (CLIA) as qualified to perform high complexity clinical laboratory testing. This case has been personally reviewed and interpreted by the attending (teaching) pathologist. 09/05/2025 10:30 AM [facility] Embedded Images 09/05/2025 10:30 AM [facility] Biopsy, NOS BIOPSY OF LYMPH NODE / Unknown 08/31/2025 10:38 AM CDT 08/31/2025 1:27 PM CDT Comment:Pre-op diagnosis: Abnormal CT lung screening [R91.8] us Rafael Manzo MD LAB - PATHOLOGY/CYTOLOGY ORDER JULISSA Edited Result - Final [facility] [address] [place] [address], [facility] [phone] * FINE NEEDLE ASPIRATION (STL) (08/31/2025 10:33 AM CDT) Case Report Medical Cytology Report Case: [id number] Authorizing Provider: Rafael Manzo MD Collected: 08/31/2025 10:33 AM Ordering Location: [facility] Received: 08/31/2025 01:27 PM Pathologist: Viral Mcclure MD Specimen: Lymph Node, 4R 09/01/2025 3:56 PM CDT [facility] Specimen Adequacy Adequate cellularity for evaluation. 09/01/2025 3:56 PM CDT [facility] Final Diagnosis Station 4R lymph node, EBUS fine-needle aspiration: Metastatic pulmonary adenocarcinoma. 09/01/2025 3:56 PM CDT [facility] at 1556 CDT Clinical History Left lung mass, mediastinal adenopathy, brain metastasis 09/01/2025 3:56 PM CDT [facility] Gross Description 3 Pap & 3 Diff Quik stained slides, 1 cell block H&E from 20 cc of red, cloudy saline 09/01/2025 3:56 PM CDT [facility] Microscopic Description The direct smear slides show non-small cell carcinoma with features of adenocarcinoma. Cytoplasmic vacuoles are readily identified. Background necrosis is present. The cell block shows similar features. Immunohistochemical stain for TTF-1 (lung adenocarcinoma marker) is positive in a small subset of malignant cells, supporting the diagnosis of pulmonary adenocarcinoma. All controls stain appropriately. 09/01/2025 3:56 PM CDT [facility] Pathologist Location at [facility] 09/01/2025 3:56 PM CDT [facility] Disclaimer The performance characteristics of all immunohistochemical and indirect immunofluorescence stains (if any) cited in this report were determined by the Histopathology Laboratory of [facility]. Some of these tests rely on the use of analyte-specific reagents and are subject to specific labeling requirements by the US Food and Drug Administration. Such tests were developed by the Histology Laboratory of [facility] and have not been cleared or approved by the FDA. The FDA has determined that such clearance and approval is not necessary. These tests are used for clinical purposes and should not be regarded as investigational or for research. This laboratory is certified under the Clinical Laboratory Improvement Amendments (CLIA) as qualified to perform high complexity clinical laboratory testing. This case has been personally reviewed and interpreted by the attending (teaching) pathologist. 09/01/2025 3:56 PM CDT [facility] Embedded Images 09/01/2025 3:56 PM CDT [facility] Pathology/Cytolo gy ENTIRE LYMPH NODE / Unknown Collection / Unknown 08/31/2025 10:33 AM CDT 08/31/2025 1:27 PM CDT Rafael Manzo MD LAB - PATHOLOGY/CYTOLOGY ORDER JULISSA Final Result [facility] [address] [place] [address], [facility] [phone] * ETT LINE PERFORMABLE (08/31/2025 10:00 AM CDT) Narrative Medardo Graf CAA - 08/31/2025 10:00 AM CDT Medardo Graf CAA 08/31/2025 10:00 AM Endotracheal Tube Placement: Patient Location: OR (Bronchoscopy Suite). Intubation Event Date/Time: 08/31/2025 9:43 AM Procedure: intubation ([id number]) Procedure Section: Sedation: under general anesthesia. Indications for Airway Management: anesthesia Induction: standard IV Patient Position: sniffing Mask Ventilation: easy. Blade Type: Jordy Blade Size: 3 Laryngoscopy View: grade 1 (full cords) Intubation Adjuncts: cricoid pressure and stylet Tube: endotracheal tube Placement: oral Tube type: cuff - inflated Tube Size (MM): 8.5 Depth of Insertion (CM): 19 Measured From: teeth Cuff Inflated With: air Number of Attempts: 1. Placement Verified By: direct visualization, bilateral breath sounds, chest auscultation and CO2 monitor Tube secured with: ETT andujar. Dentition unchanged? Yes Difficult Airway? No. Procedure Start Time: 08/31/2025 9:43 AM. Staff Section Anesthesia Provider: Medardo Graf CAA, Performed the procedure Provider #1: Adela Hennessy MD. us Adela Hennessy MD GENERAL ANESTHESIA ORDERABLES Fi nal Result * Bronchoscopy (08/31/2025 8:03 AM CDT) Report Endoscopy POC Advanced Diagnostic Bronchoscopy and Interventional Pulmonary Service _ Patient Name: Tessie Burnham Procedure Date: 08/31/2025 8:03 AM Date of : 1955 Attending MD: Rafael Manzo MD, [id number] Age: 69 Room: Bronch Suite _ Providers: Rafael Manzo MD, Sean Chu Dr., MD (Fellow), Samira Simpson; See, Aniya Dumont MD (fellow) Referring MD: Procedure: Bronchoscopy Medicines: General Anesthesia Description of Procedure: After obtaining informed consent, the patient was sedated and intubated by anesthesia. She was kept under GA for the duration of the procedure. First, the position of the ETT and the presence of obstructing secretions was assessed using the Ambu single use bronchoscope. The ETT was withdrawn several centimeters into the right location. Next, the Olympus linear EBUS bronchoscope was used to inspect 4R and obtained FNA and cryobiopies. The linear EBUS bronchoscope was then removed from the airway. A final inspection was performed with the Ambu bronchoscope. Once hemostasis was ensured, the bronchoscope was removed from the airway concluding the procedure. The procedure was accomplished with ease. The procedure was accomplished without difficulty. Findings: 1. 4R station FNA and cryobiopsies 2. CEASAR: NSCLC, await for final pathology Estimated Blood Loss: Minimal Estimated blood loss was minimal. Complications: None No immediate complications _ Impression: CEASAR: NSCLC Moderate Sedation: General anesthesia Recommendation: Await for pathology - Await [tests' results. Rafael Manzo MD 09/01/2025 11:07:[address] MD Note Initiated On: 08/31/2025 8:03 AM Number of Addenda: [address] [place] [address] [facility] 08/31/2025 8:03 AM CDT us Sean Chu MD RESPIRATORY THERAPY ORD ERABLES Edited Result - Final [facility] * EKG 12-Lead (08/29/2025 9:20 AM CDT) Only the most recent of3 resultswithin the time period is included. Ventricular Rate 108 BPM [facility] QRS Duration ms 82 ms [facility] Q-T Interval ms 334 ms [facility] QTC Calculation (Bezet) 447 ms [facility] Calculated R Eldridge -71 degrees [facility] Calculated T Eldridge -90 degrees [facility] Interpretation EKG ATRIAL FIBRILLATION WITH RAPID VENTRICULAR RESPONSE WITH PREMATURE VENTRICULAR OR ABERRANTLY CONDUCTED COMPLEXES LEFT AXIS DEVIATION INFERIOR INFARCT , AGE UNDETERMINED ANTERIOR INFARCT , AGE UNDETERMINED ABNORMAL ECG WHEN COMPARED WITH ECG OF 24-AUG-2025 01:18, ATRIAL FIBRILLATION HAS REPLACED NORMAL SINUS RHYTHM Confirmed by MD CASTELLANO LISA ([id number]) on 09/01/2025 1:33:51 PM [facility] 08/29/2025 9:20 AM CDT 09/01/2025 1:33 PM CDT Michael Leon MD ECG ORDERABLES Edited Result - Final [facility] * ETT LINE PERFORMABLE (08/29/2025 7:46 AM CDT) Narrative Addis Schaefer APRN-CRNA - 08/29/2025 7:46 AM CDT Addis Schaefer APRN-CRNA 08/29/2025 7:46 AM Endotracheal Tube Placement: Patient Location: OR. Intubation Event Date/Time: 08/29/2025 7:38 AM Procedure: intubation ([id number]) Procedure Section: Sedation: under general anesthesia. Indications for Airway Management: anesthesia Induction: standard IV Patient Position: sniffing Mask Ventilation: not attempted. Blade Type: Jordy Blade Size: 3 Laryngoscopy View: grade 1 (full cords) Intubation Adjuncts: stylet and cricoid pressure Tube: endotracheal tube Placement: oral Tube type: cuff - inflated Tube Size (MM): 7 Depth of Insertion (CM): 20 Measured From: teeth Cuff volume (mL): 7 Cuff Inflated With: air Number of Attempts: 1. Placement Verified By: direct visualization, bilateral breath sounds, chest auscultation and CO2 monitor Tube secured with: adhesive tape. Dentition unchanged? Yes Difficult Airway? No. Procedure Start Time: 08/29/2025 7:38 AM. Staff Section Anesthesia Provider: Addis Schaefer APRN-CRNA, Performed the procedure Provider #1: Michael Leon MD. Additional Comments: Intubation by medical student . Michael Leon MD GENERAL ANESTHESIA ORDERABLES Final Result * XR Pelvis 1 or 2Vw (08/29/2025 3:20 AM CDT) Anatomical Region Laterality Modality Pelvis Digital Radiogra phy 08/29/2025 8:51 AM CDT Impressions 08/29/2025 9:12 AM CDT IMPRESSION: No acute fracture or dislocation. This report was dictated by Kaden Sims M.D. (/IR Resident). > Dictated by Kaden Sims MD 08/29/2025 8:51 AM > Dictated by Dielectric Embossing Machine Operator I, Radha Pineda MD have personally reviewed and interpreted this examination/study. > Interpreting Provider: Radha Pineda MD on 08/29/2025 9:12 AM Narrative 08/29/2025 9:12 AM CDT PROCEDURE: XR PELVIS 1 OR 2VW DATE/TIME OF EXAM: 08/29/2025 3:20 AM CLINICAL INFORMATION: None relevant/not provided if blank. 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 FINDINGS: There is no acute fracture or dislocation. The femoral heads are well-seated in the acetabula. The pubic symphysis appears normal. The sacroiliac joints appear normal. A bone island is noted in the right femoral head. A lumbosacral transitional vertebra is present. Degenerative changes in the lower lumbar spine. Procedure Note Radha Pineda MD - 08/29/2025 PROCEDURE: XR PELVIS 1 OR 2VW DATE/TIME OF EXAM: 08/29/2025 3:20 AM CLINICAL INFORMATION: None relevant/not provided if blank. 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 FINDINGS: There is no acute fracture or dislocation. The femoral heads are well-seated in the acetabula. The pubic symphysis appears normal. The sacroiliac joints appear normal. A bone island is noted in the right femoral head. A lumbosacral transitional vertebra is present.Degenerative changes in the lower lumbar spine. IMPRESSION: No acute fracture or dislocation. This report was dictated by Kaden Sims M.D. (/IR Resident). > Dictated by Kaden Sims MD 08/29/2025 8:51 AM > Dictated by Dielectric Embossing Machine Operator I, Radha Pineda MD have personally reviewed and interpreted this examination/study. > Interpreting Provider: Radha Pineda MD on 08/29/2025 9:12 AM Rodrigue Perez MD DIAGNOSTIC IMAGING ORDE [facility] Final Result * CT HEAD STEREOTACTIC WO CONTRAST (08/28/2025 10:11 AM CDT) Anatomical Region Laterality Modality Head Computed Tomogra phy 08/28/2025 9:05 PM CDT Impressions 08/29/2025 12:02 AM CDT IMPRESSION: Stereotactic CT performed for preoperative planning and intraoperative guidance and localization purposes. Redemonstrated left cerebellar mass effect with compression of the fourth ventricle and associated supratentorial ventricular dilation, better characterized on prior MRI exam. Multiple metastatic lesions in the supra-/infratentorial region are better delineated on recent MRI exam. > Dictated by Deborah Sevilla MD, in the presence of Edgar Story MD, (educational institution president). > Interpreting Provider: Deborah Sevilla MD on 08/29/2025 12:02 AM Narrative 08/29/2025 12:02 AM CDT PROCEDURE: CT HEAD WO CONTRAST DATE/TIME OF EXAM: 08/28/2025 10:11 AM CLINICAL INFORMATION: None relevant/not provided if blank. Indication: G93.89: Cerebellar mass Additional History: COMPARISON: MRI brain with and without contrast dated 08/23/2025. TECHNIQUE: Noncontrast CT brain was performed utilizing standard protocol. CT dose reduction technique was used, including Automated Exposure Control. FINDINGS: Stereotactic CT performed for preoperative planning and intraoperative guidance and localization purposes. Again seen significant mass effect in the left cerebellum causing compression of the fourth ventricle with rightward displacement. This results in obstructive hydrocephalus and dilation of the third ventricle and lateral ventricles. This was better delineated and characterized on prior MRI exam. Multiple metastatic lesions in the supra-/infratentorial region are better delineated on recent MRI exam. No evidence of acute intracranial hemorrhage. Mild paranasal sinus disease. The paranasal sinuses and mastoids are otherwise well aerated. The orbits, calvarium and soft tissues of the scalp are grossly unremarkable. Procedure Note Deborah Sevilla MD - 08/29/2025 PROCEDURE: CT HEAD WO CONTRAST DATE/TIME OF EXAM: 08/28/2025 10:11 AM CLINICAL INFORMATION: None relevant/not provided if blank. Indication: G93.89: Cerebellar mass Additional History: COMPARISON: MRI brain with and without contrast dated 08/23/2025. TECHNIQUE: Noncontrast CT brain was performed utilizing standard protocol. CT dose reduction technique was used, including Automated ExposureControl. FINDINGS: Stereotactic CT performed for preoperative planning and intraoperative guidance and localization purposes. Again seen significant mass effect in the left cerebellum causing compression of the fourth ventricle with rightward displacement. This results in obstructive hydrocephalus and dilation of the third ventricle and lateral ventricles. This was better delineated and characterized on prior MRI exam. Multiple metastatic lesions in the supra-/infratentorial region arebetter delineated on recent MRI exam. No evidence of acute intracranial hemorrhage. Mild paranasal sinus disease. The paranasal sinuses and mastoids are otherwise well aerated. The orbits, calvarium and soft tissues of thescalp are grossly unremarkable. IMPRESSION: Stereotactic CT performed for preoperative planning and intraoperative guidance and localization purposes. Redemonstrated left cerebellar mass effect with compression of thefourth ventricle and associated supratentorial ventricular dilation, better characterized on prior MRI exam. Multiple metastatic lesions in the supra-/infratentorial region arebetter delineated on recent MRI exam. > Dictated by Deborah Sevilla MD, in the presence of Edgar Story MD, (educational institution president). > Interpreting Provider: Deborah Sevilla MD on 08/29/2025 12:02 AM Harman Oliva DO CT ORDERABLES Final Result * TYPE + SCREEN PANEL (08/28/2025 12:26 AM CDT) Only the most recent of2 resultswithin the time period is included. Antibody Screen NEG 3:15 AM CDT [facility] ABO Rh A POS 08/28/2025 3:15 AM CDT [facility] Blood Bank BLOOD SPECIMEN / Unknown Lab Venipuncture / Unknown 08/28/2025 12:26 AM CDT 08/28/2025 2:21 AM CDT us Leeroy Chávez MD LAB - BLOOD BANK ORDERABL ES Final Result [facility] [address] [place] [address], [place] [phone] * ECHO COMPLETE W CONTRAST (08/24/2025 4:27 PM CDT) LV A4C EF 65.056 % SSM CV FUJ I PACS MV E pk benjamin 64.841 cm/s SSM CV F UJI PACS LV ESV A4C 23.892 ml SSM CV FU JI PACS LV EDV A4C 68.372 ml SSM CV FU JI PACS LV EDV A2C 53.632 ml SSM CV FU JI PACS LVOT pk grad 5.32 mmHg SSM CV FUJI PACS AV mn grad 4.122 mmHg SSM CV FU JI PACS LVPWd 0.973 cm SSM CV FUJ I PACS RVOT pk benjamin 69.48 cm/s SSM CV F UJI PACS LA vol BP 34.958 ml SSM CV FUJ I PACS PV pk benjamin 80.908 cm/s SSM CV FUJ I PACS LVIDd 4.115 cm SSM CV FUJ I PACS AV VTI 27.074 cm SSM CV FUJ I PACS LV A2C EF 66.277 % SSM CV FUJ I PACS LV ESV A2C 18.086 ml SSM CV FU JI PACS MV mn grad 0.997 mmHg SSM CV FU JI PACS LVOT pk benjamin 115.329 cm/s SSM CV F UJI PACS RV-bahena basal diam 3.211 cm SSM CV FUJI PACS RA area 12.024 cm SSM CV FUJI PACS MV A pk benjamin 95.287 cm/s SSM CV F UJI PACS MV VTI 22.673 cm SSM CV FUJ I PACS MV E' lateral benjamin 4.979 cm/s SS M CV FUJI PACS LA size 3.195 cm SSM CV FUJ I PACS TAPSE 1.514 cm SSM CV FUJ I PACS LVIDs 2.823 cm SSM CV FUJ I PACS AV area cont VTI 2.326 cm SSM CV FUJI PACS PV VTI 17.209 cm SSM CV FUJ I PACS AV pk grad 9.096 mmHg SSM CV FU JI PACS LV biplane EF 65.605 % SSM CV FUJI PACS AV area pk benjamin 2.234 cm SSM CV FUJI PACS LVOT VTI 21.558 cm SSM CV FUJ I PACS IVSd 2D 1.073 cm SSM CV FUJ I PACS LVOT diam 1.928 cm SSM CV FUJ I PACS AV pk benjamin 150.795 cm/s SSM CV FUJ I PACS Ascending aorta 2.319 cm SSM CV FUJI PACS RVOT VTI 16.091 cm SSM CV FUJ I PACS GLS -12.4 % SSM CV FUJ I PACS AV area index 1.586 cm /m SSM CV FUJI PACS LA vol index 0.024 l/m SSM CV FUJI PACS Dimensionless Index 0.796 unitless SSM CV FUJI PACS Myocardial strain charge 2 unitless SSM CV FUJI PACS Anatomical Region Laterality Modality Ultrasound 08/24/2025 3:24 PM CDT Narrative 08/24/2025 5:10 PM CDT Summary * There is mildly increased left ventricular wall thickness. * The left ventricle is normal in size. * Left ventricular segmental wall motion is normal. * Left ventricular systolic function is normal with an estimated ejection fraction of 66% by biplane method of disks. * The left ventricular diastolic function is consistent with grade I diastolic dysfunction and normal left atrial filling pressure. * Global longitudinal strain of the left ventricle is -12.4% (normal < -18%). * Right ventricle is normal in size with normal systolic function. * No significant valvular abnormalities. Patient Info Name: Tessie Batch Age: 69 years : 1955 Gender: Female Ht: 61 in Wt: 110 lb BSA: 1.47 m2 HR: 66 bpm BP: 143 / 86 mmHg Exam Date: 08/24/2025 3:24 PM Patient Status: I/P Study Site: [facility] Primary Location: [facility] EStudy Info Technical Quality: Fair Exam Type: ECHO COMPLETE W CONTRAST Indications R91.8 - Lung mass G93.89 - Cerebellar mass Procedure(s) * A complete 2D, color Doppler, spectral Doppler, and M-Mode transthoracic echocardiogram was performed. * An Ultrasound Enhancing Agent (UEA) was utilized to enhance endocardial definition, opacify the left ventricle and further assess left ventricular function and wall motion. Contrast/Agitated Saline Contrast / Saline: Definity Amount: 1.50 ml Reaction to Contrast: no Reason for Technically Difficult Study: lung interference, body habitus Staff Referring Physician: Aung Huang Iii Ordering Provider: Aung Huang Iii Attending Physician: Aung Huang Iii Die Maker Stamping: Diego Garber Left Ventricle The left ventricular mass is normal. There is mildly increased left ventricular wall thickness. The left ventricle is normal in size. Left ventricular segmental wall motion is normal. Left ventricular systolic function is normal with an estimated ejection fraction of 66% by biplane method of disks. The left ventricular diastolic function is consistent with grade I diastolic dysfunction and normal left atrial filling pressure. Global longitudinal strain of the left ventricle is -12.4% (normal < -18%). Right Ventricle The right ventricle is normal in size. Right ventricular systolic function is normal. Left Atrium The left atrium is normal in size with a left atrial volume index of 24 ml/m2 by BP MOD. Right Atrium The right atrium is normal in size. Atrial Septum Intact interatrial septum visualized by 2D and color Doppler imaging. Aortic Valve The aortic valve is trileaflet. There is no aortic valve stenosis. There is no aortic valve regurgitation. Pulmonic Valve The pulmonic valve is normal. There is no pulmonic valve stenosis. There is mild pulmonic regurgitation. Mitral Valve The mitral valve is normal. There is no mitral valve stenosis. There is no mitral valve regurgitation. Tricuspid Valve The tricuspid valve is normal. There is mild tricuspid valve regurgitation. Unable to assess pulmonary pressures due to a lack of tricuspid and pulmonic regurgitation. There is no tricuspid valve stenosis. Inferior Vena Cava The inferior vena cava is normal in size (< 2.1 cm). There is > 50% collapse of the IVC upon inspiration with an estimated right atrial pressure of 3 mmHg. Pericardium/Pleural There is a small pericardial effusion. Aorta The aortic root at the sinus of Valsalva is normal in size. The ascending aorta is normal in size. Measurements Left Ventricular Outflow Tract Name Value Normal LVOT 2D LVOT Diameter 1.9 cm LVOT Area 2.9 cm2 LVOT Doppler LVOT Peak Velocity 1.2 m/s LVOT Peak Gradient 5 mmHg LVOT Mean Velocity 66.64 cm/s LVOT Mean Gradient 2 mmHg LVOT VTI 21.6 cm LVOT VTI/AV VTI Ratio 0.8 LVOT Stroke Volume 63 ml LVOT Stroke Volume Index 43 ml/m2 35-58 LVOT CO 4.1 l/min LVOT CI 2.8 l/min/m2 Pulmonic Valve Name Value Normal RVOT Doppler RVOT Peak Velocity 0.7 m/s RVOT Peak Gradient 2 mmHg RVOT Mean Gradient 1 mmHg PV Doppler PV Peak Velocity 0.8 m/s PV Peak Gradient 3 mmHg PV Mean Gradient 1 mmHg Mitral Valve Name Value Normal MV Doppler MV Peak Gradient 4 mmHg MV Mean Gradient 1 mmHg MV DI (VTI) 1.05 MV PHT 68 ms MV Area (PHT) 3.25 cm2 4.00-5.00 MV Area (Cont Eq VTI) 2.78 cm2 MV Diastolic Function MV E Peak Velocity 0.6 m/sec MV A Peak Velocity 1.0 m/sec MV E/A 0.7 MV Decel Time (PW) 233 ms MV Annular TDI MV Septal e' Velocity 6 cm/s >=8 MV E/e' (Septal) 12 <=8 MV Lateral e' Velocity 5 cm/s >=10 MV E/e' (Lateral) 13 <=8 MV e' Average 5 cm/s MV E/e' (Average) 12 Tricuspid Valve Name Value Normal Estimated PAP/RSVP RA Pressure 3 mmHg <=5 TV Annular TDI TV Lateral Chelsie s' Velocity 12 cm/s 10-19 Aorta Name Value Normal Ascending Aorta Asc Ao Diameter 2.3 cm 1.9-3.5 Asc Ao Diameter Index 1.6 cm/m2 1.0-2.2 Aortic Valve Name Value Normal AV 2D/MM AV Cusp Sep (MM) 1.6 cm AV Doppler AV Peak Velocity 1.51 m/s AV Peak Gradient 9 mmHg AV Mean Gradient 4 mmHg AV VTI 27 cm AV Area (Cont Eq VTI) 2.33 cm2 >=2.00 AV Area (Cont Eq Benjamin) 2.23 cm2 AV DI (VTI) 0.80 AV DI (Benjamin) 0.76 AV Regurgitation 2D LVOT Area 2.92 cm2 Ventricles Name Value Normal LV Dimensions 2D/MM IVS Diastolic Thickness (2D) 1.1 cm 0.6-0.9 LVID Diastole (2D) 4.1 cm 3.8-5.2 LVPW Diastolic Thickness (2D) 1.0 cm 0.6-0.9 LVID Systole (2D) 2.8 cm 2.2-3.5 LV Mass (2D Cubed) 137 g 67-162 LV Mass Index (2D Cubed) 94 g/m2 43-95 Relative Wall Thickness (2D) 0.47 <=0.42 LV Fractional Shortening/Ejection Fraction 2D/MM LV Fractional Shortening (2D) 31 % 27-45 LV EF (2D Teicholz) 60 % 54-74 LV Diastolic Volume (4C MOD) 68 ml LV EF (4C MOD) 65 % LV Diastolic Volume (2C MOD) 54 ml LV EF (2C MOD) 66 % LV Diastolic Volume (BP MOD) 61 ml 46-106 LV Diastolic Volume Index (BP MOD) 42 ml/m2 29-61 LV Systolic Volume (BP MOD) 21 ml 14-42 LV Systolic Volume Index (BP MOD) 14 ml/m2 8-24 LV EF (BP MOD) 66 % 54-74 LV Diastolic Length (4C) 7.1 cm LV Systolic Length (4C) 5.5 cm LV Stroke Volume (4C MOD) 44 ml LV Global Longitudinal Strain -12 % RV Dimensions 2D/MM RV Basal Diastolic Dimension 3.2 cm 2.5-4.1 TAPSE 1.5 cm >=1.7 Atria Name Value Normal LA Dimensions LA Dimension (2D) 3.2 cm 2.7-3.8 LA Dimen Index (2D) 2.2 cm/m2 LA Volume (BP MOD) 35 ml LA Volume Index (BP MOD) 24 ml/m2 16-34 RA Dimensions RA Area (4C) 12 cm2 <=18 RA Area (4C) Index 8 cm2/m2 EchoPAC Name Value Normal DIANA G peak SL(Avg) (AWMA) -12.4 % Report Signatures Finalized by Nila Castellano MD on 08/24/2025 05:10 PM Procedure Note Nila Castellano MD - 08/24/2025 Summary * There is mildly increased left ventricular wall thickness. * The left ventricle is normal in size. * Left ventricular segmental wall motion is normal. * Left ventricular systolic function is normal with an estimatedejection fraction of 66% by biplane method of disks. * The left ventricular diastolic function is consistent with grade I diastolic dysfunction and normal left atrial filling pressure. * Global longitudinal strain of the left ventricle is -12.4% (normal < -18%). * Right ventricle is normal in size with normal systolic function. * No significant valvular abnormalities. Patient Info Name: Tessie Batch Age: 69 years : 1955 Gender: Female Ht: 61 in Wt: 110 lb BSA: 1.47 m2 HR: 66 bpm BP: 143 / 86 mmHg Exam Date: 08/24/2025 3:24 PM Patient Status: I/P Study Site: [facility] Primary Location: [facility] Info Technical Quality: Fair Exam Type: ECHO COMPLETE W CONTRAST Indications R91.8 - Lung mass G93.89 - Cerebellar mass Procedure(s) * A complete 2D, color Doppler, spectral Doppler, and M-Modetransthoracic echocardiogram was performed. * An Ultrasound Enhancing Agent (UEA) was utilized to enhanceendocardial definition, opacify the left ventricle and further assess leftventricular function and wall motion. Contrast/Agitated Saline Contrast / Saline: Definity Amount: 1.50 ml Reaction to Contrast: no Reason for Technically Difficult Study: lung interference, bodyhabitus Staff Referring Physician: Aung Huang Iii Ordering Provider: Aung Huang Iii Attending Physician: Aung Huang Iii Die Maker Stamping: Diego Garber Left Ventricle The left ventricular mass is normal. There is mildly increased left ventricular wall thickness. The left ventricle is normal in size. Left ventricular segmental wall motion is normal. Left ventricular systolic function is normal with an estimated ejection fraction of 66% by biplane method of disks. The left ventricular diastolic function is consistentwith grade I diastolic dysfunction and normal left atrial filling pressure.Global longitudinal strain of the left ventricle is -12.4% (normal < -18%). Right Ventricle The right ventricle is normal in size. Right ventricular systolicfunction is normal. Left Atrium The left atrium is normal in size with a left atrial volume index of24 ml/m2 by BP MOD. Right Atrium The right atrium is normal in size. Atrial Septum Intact interatrial septum visualized by 2D and color Doppler imaging. Aortic Valve The aortic valve is trileaflet. There is no aortic valve stenosis. Thereis no aortic valve regurgitation. Pulmonic Valve The pulmonic valve is normal. There is no pulmonic valve stenosis. Thereis mild pulmonic regurgitation. Mitral Valve The mitral valve is normal. There is no mitral valve stenosis. There isno mitral valve regurgitation. Tricuspid Valve The tricuspid valve is normal. There is mild tricuspid valveregurgitation. Unable to assess pulmonary pressures due to a lack of tricuspid andpulmonic regurgitation. There is no tricuspid valve stenosis. Inferior Vena Cava The inferior vena cava is normal in size (< 2.1 cm). There is > 50%collapse of the IVC upon inspiration with an estimated right atrial pressure of 3mmHg. Pericardium/Pleural There is a small pericardial effusion. Aorta The aortic root at the sinus of Valsalva is normal in size. Theascending aorta is normal in size. Measurements Left Ventricular Outflow Tract Name Value Normal LVOT 2D LVOT Diameter 1.9 cm LVOT Area 2.9 cm2 LVOT Doppler LVOT Peak Velocity 1.2 m/s LVOT Peak Gradient 5 mmHg LVOT Mean Velocity 66.64 cm/s LVOT Mean Gradient 2 mmHg LVOT VTI 21.6 cm LVOT VTI/AV VTI Ratio 0.8 LVOT Stroke Volume 63 ml LVOT Stroke Volume Index 43 ml/m2 35-58 LVOT CO 4.1 l/min LVOT CI 2.8 l/min/m2 Pulmonic Valve Name Value Normal RVOT Doppler RVOT Peak Velocity 0.7 m/s RVOT Peak Gradient 2 mmHg RVOT Mean Gradient 1 mmHg PV Doppler PV Peak Velocity 0.8 m/s PV Peak Gradient 3 mmHg PV Mean Gradient 1 mmHg Mitral Valve Name Value Normal MV Doppler MV Peak Gradient 4 mmHg MV Mean Gradient 1 mmHg MV DI (VTI) 1.05 MV PHT 68 ms MV Area (PHT) 3.25 cm2 4.00-5.00 MV Area (Cont Eq VTI) 2.78 cm2 MV Diastolic Function MV E Peak Velocity 0.6 m/sec MV A Peak Velocity 1.0 m/sec MV E/A 0.7 MV Decel Time (PW) 233 ms MV Annular TDI MV Septal e' Velocity 6 cm/s >=8 MV E/e' (Septal) 12 <=8 MV Lateral e' Velocity 5 cm/s >=10 MV E/e' (Lateral) 13 <=8 MV e' Average 5 cm/s MV E/e' (Average) 12 Tricuspid Valve Name Value Normal Estimated PAP/RSVP RA Pressure 3 mmHg <=5 TV Annular TDI TV Lateral Chelsie s' Velocity 12 cm/s 10-19 Aorta Name Value Normal Ascending Aorta Asc Ao Diameter 2.3 cm 1.9-3.5 Asc Ao Diameter Index 1.6 cm/m2 1.0-2.2 Aortic Valve Name Value Normal AV 2D/MM AV Cusp Sep (MM) 1.6 cm AV Doppler AV Peak Velocity 1.51 m/s AV Peak Gradient 9 mmHg AV Mean Gradient 4 mmHg AV VTI 27 cm AV Area (Cont Eq VTI) 2.33 cm2 >=2.00 AV Area (Cont Eq Benjamin) 2.23 cm2 AV DI (VTI) 0.80 AV DI (Benjamin) 0.76 AV Regurgitation 2D LVOT Area 2.92 cm2 Ventricles Name Value Normal LV Dimensions 2D/MM IVS Diastolic Thickness (2D) 1.1 cm 0.6-0.9 LVID Diastole (2D) 4.1 cm 3.8-5.2 LVPW Diastolic Thickness (2D) 1.0 cm 0.6-0.9 LVID Systole (2D) 2.8 cm 2.2-3.5 LV Mass (2D Cubed) 137 g 67-162 LV Mass Index (2D Cubed) 94 g/m2 43-95 Relative Wall Thickness (2D) 0.47 <=0.42 LV Fractional Shortening/Ejection Fraction 2D/MM LV Fractional Shortening (2D) 31 % 27-45 LV EF (2D Teicholz) 60 % 54-74 LV Diastolic Volume (4C MOD) 68 ml LV EF (4C MOD) 65 % LV Diastolic Volume (2C MOD) 54 ml LV EF (2C MOD) 66 % LV Diastolic Volume (BP MOD) 61 ml 46-106 LV Diastolic Volume Index (BP MOD) 42 ml/m2 29-61 LV Systolic Volume (BP MOD) 21 ml 14-42 LV Systolic Volume Index (BP MOD) 14 ml/m2 8-24 LV EF (BP MOD) 66 % 54-74 LV Diastolic Length (4C) 7.1 cm LV Systolic Length (4C) 5.5 cm LV Stroke Volume (4C MOD) 44 ml LV Global Longitudinal Strain -12 % RV Dimensions 2D/MM RV Basal Diastolic Dimension 3.2 cm 2.5-4.1 TAPSE 1.5 cm >=1.7 Atria Name Value Normal LA Dimensions LA Dimension (2D) 3.2 cm 2.7-3.8 LA Dimen Index (2D) 2.2 cm/m2 LA Volume (BP MOD) 35 ml LA Volume Index (BP MOD) 24 ml/m2 16-34 RA Dimensions RA Area (4C) 12 cm2 <=18 RA Area (4C) Index 8 cm2/m2 EchoPAC Name Value Normal DIANA G peak SL(Avg) (AWMA) -12.4 % Report Signatures Finalized by Nila Castellano MD on 08/24/2025 05:10 PM us Aung Huang III, ECHO CUPID Final R esult * MRI Brain Wwo Contrast (08/23/2025 10:17 PM CDT) Anatomical Region Laterality Modality Head Magnetic Resonan ce 08/24/2025 2:15 AM CDT Impressions 08/24/2025 8:18 AM CDT IMPRESSION: 1. 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 The finding of obstructive hydrocephalus is known to the primary team. 2. Mild bilateral cerebellar tonsil descent causing crowding of the foramen magnum, compatible with early inferior cerebellar tonsillar herniation. 3. No evidence of acute intracranial hemorrhage or infarct. Report dictated by Girma Prieto MD (educational institution president) 08/24/2025 2:32 AM. > Dictated by Girma Prieto MD 08/24/2025 2:15 AM > Dictated by Dielectric Embossing Machine Operator I, Kalie Brewer MD have personally reviewed and interpreted this examination/study. > Interpreting Provider: Kalie Brewer MD on 08/24/2025 8:18 AM Narrative 08/24/2025 8:18 AM CDT PROCEDURE: MRI BRAIN WWO CONTRAST, DATE/TIME OF EXAM: 08/23/2025 10:19 PM, LOCATION [facility] INDICATION: G91.1: Obstructive hydrocephalus (HCC) ADDITIONAL CLINICAL INFORMATION: Ordering Provider Reason For Exam: evidence of new brain mass and obstructive hydrocephalus on CT - tumor protocol Technologist Note: Additional: None. EXAMINATION: Magnetic resonance imaging (MRI) of the brain without and with contrast CONTRAST: GADOBUTROL 1 MMOL/ML IV SSM SO:5 mL TECHNIQUE: MRI of the brain was performed prior to and following the uneventful administration of 5 mL Gadavist intravenous gadolinium contrast according to standard protocol. COMPARISON: No prior study is available for comparison at the time of this dictation. FINDINGS: There are small numerous rounded enhancing intra-axial foci in the supratentorial brain. There is vasogenic edema is associated with a prominent enhancing mass up to 1.8 cm in the right temporal lobe. Numerous other enhancing supratentorial nodules measure 1 cm or less. There are also numerous enhancing masses in the cerebellum with associated vasogenic edema. The 2 largest masses measure up to 2.9 cm and 3 cm in the vermis and left cerebellum. There is significant mass effect in the posterior fossa causing compression of the fourth ventricle with rightward displacement. This results in obstructive hydrocephalus and dilation of the third ventricle and lateral ventricles. Coronal bifrontal diameter is 4 cm. Transverse dimension of the third ventricle is 1.6 cm. Periventricular T2 FLAIR hyperintensity represents transependymal flow of CSF. A single chronic microhemorrhage is seen in the right centrum semiovale (image 27, series 6) (. There is no evidence of acute hemorrhage. No evidence of acute cerebral infarction is seen. No midline shift. The basal cisterns are patent. There is mild bilateral cerebellar tonsillar descent causing crowding of the foramen magnum. The corpus callosum is thinned. The sella is normal. There is mass effect on the brainstem due to vasogenic edema in the left-sided cerebellum. The optic nerves are mildly tortuous likely related to increased intracranial pressure. The paranasal sinuses are clear. Small bilateral mastoid effusions are noted. There is normal contrast enhancement in the intracranial arteries and dural venous sinuses. Pannus formation is seen at the craniocervical junction without high-grade spinal canal stenosis. Procedure Note Kalie Brewer MD - 08/24/2025 PROCEDURE: MRI BRAIN WWO CONTRAST, DATE/TIME OF EXAM: 08/23/2025 10:19PM, LOCATION [facility] INDICATION: G91.1: Obstructive hydrocephalus (HCC) ADDITIONAL CLINICAL INFORMATION: Ordering Provider Reason For Exam: evidence of new brain mass and obstructive hydrocephalus on CT - tumor protocol Technologist Note: Additional: None. EXAMINATION: Magnetic resonance imaging (MRI) of the brain without andwith contrast CONTRAST: GADOBUTROL 1 MMOL/ML IV SSM SO:5 mL TECHNIQUE: MRI of the brain was performed prior to and following the uneventful administration of 5 mL Gadavist intravenous gadoliniumcontrast according to standard protocol. COMPARISON: No prior study is available for comparison at the time ofthis dictation. FINDINGS: There are small numerous rounded enhancing intra-axial foci in the supratentorial brain. There is vasogenic edema is associated with a prominent enhancing mass up to 1.8 cm in the right temporal lobe.Numerous other enhancing supratentorial nodules measure 1 cm or less. There are also numerous enhancing masses in the cerebellum withassociated vasogenic edema. The 2 largest masses measure up to 2.9 cm and 3 cm inthe vermis and left cerebellum. There is significant mass effect in the posterior fossa causingcompression of the fourth ventricle with rightward displacement. This results in obstructive hydrocephalus and dilation of the third ventricle andlateral ventricles. Coronal bifrontal diameter is 4 cm. Transverse dimension ofthe third ventricle is 1.6 cm. Periventricular T2 FLAIR hyperintensity represents transependymal flow of CSF. A single chronic microhemorrhage is seen in the right centrum semiovale (image 27, series 6) (. There is no evidence of acute hemorrhage. No evidence of acute cerebral infarction is seen. No midline shift. The basal cisterns are patent. There is mild bilateral cerebellar tonsillar descent causing crowding of the foramen magnum. The corpus callosum is thinned. The sella is normal. There is mass effect on the brainstem due to vasogenic edema in the left-sided cerebellum. The optic nerves are mildly tortuous likely related to increased intracranial pressure. The paranasal sinuses are clear. Small bilateral mastoid effusions are noted. There is normal contrast enhancement in the intracranial arteries anddural venous sinuses. Pannus formation is seen at the craniocervical junction withouthigh-grade spinal canal stenosis. IMPRESSION: 1. 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 The finding of obstructive hydrocephalus is knownto the primary team. 2. Mild bilateral cerebellar tonsil descent causing crowding of theforamen magnum, compatible with early inferior cerebellar tonsillar herniation. 3. No evidence of acute intracranial hemorrhage or infarct. Report dictated by Girma Prieto MD (educational institution president) 08/24/2025 2:32 AM. > Dictated by Girma Prieto MD 08/24/2025 2:15 AM > Dictated by Dielectric Embossing Machine Operator I, Kalie Brewer MD have personally reviewed and interpreted this examination/study. > Interpreting Provider: Kalie Brewer MD on 08/24/2025 8:18 AM Brandon Bee MD MR ORDERABLES Final Result * BLOOD TYPE VERIFICATION (08/23/2025 10:05 PM CDT) ABO Rh A POS 08/23/2025 11:13 PM CDT [facility] Blood Bank BLOOD SPECIMEN / Unknown Venipuncture / Unknown 08/23/2025 10:05 PM CDT 08/23/2025 10:37 PM CDT Brandon Bee MD LAB - BLOOD BANK ORDERABLES F inal Result Performing Organization Address [facility] Co de Phone Number [facility] [address] [place] [address], [facility] [phone] * PTT (08/23/2025 8:21 PM CDT) APTT 28.3 23.0 - 38.4 Seconds 08/23/2025 8:47 PM CDT [facility] Comment:Suggested therapeuti c range for full dose I.V. unfractionated heparin therapy for venous thromboembolism is 71 to 109 seconds. Blood BLOOD SPECIMEN / Unknown Venipuncture / Unknown 08/23/2025 8:21 PM CDT 08/23/2025 8:25 PM CDT Brandon Bee MD LAB - COAGULATION ORDERABLES Final Result Performing Organization Address [facility] de Phone Number [address] [address], [facility] [phone] * (ABNORMAL) PT-INR (08/23/2025 8:21 PM CDT) PT 15.0(H) 12.1 - 14.8 Seconds 08/23/2025 8:47 PM CDT [facility] INR 1.2 See Comment 08/23/2025 8:47 PM CDT [facility] Comment:The suggested therap eutic range for standard coumadin (warfarin) therapy is an INR of 2.0-3.0. For high-risk patients (Mechanical Mitral Valve Prosthesis, etc.), the suggested prophylactic therapeutic range is an INR of 2.5-3.5. Blood BLOOD SPECIMEN / Unknown Venipuncture / Unknown 08/23/2025 8:21 PM CDT 08/23/2025 8:25 PM CDT Brandon Bee MD LAB - COAGULATION ORDERABLES Final Result Performing Organization Address [facility] Co de Phone Number [address] [id number] [phone] * CT Chest Abdomen Pelvis W Cont (08/23/2025 8:14 PM CDT) Anatomical Region Laterality Modality Chest, Abdomen, Pelvis Computed Tomography 08/23/2025 9:13 PM CDT Impressions 08/23/2025 10:27 PM CDT Impression: 1.Left upper lobe mass measuring up to 3.7 cm concerning for primary malignancy. Mediastinal lymphadenopathy and multiple additional bilateral pulmonary nodules concerning for metastatic disease. 2.Small-volume pericardial fluid. 3.Cholelithiasis without evidence of acute cholecystitis. 4.Fluid within the endometrial cavity. Correlation with pelvic ultrasound and MEDICAL ADMINISTRATIVE ASSISTANT consultation is recommended. 5.Small cystic lesions within the pancreas measuring up to 5 mm which could represent side branch intraductal papillary mucinous neoplasms. 6.Asymmetry of the right breast tissue, recommend correlation with mammography. Report dictated by Melissa Chapin MD (IR/DR resident). > Dictated by Melissa Chapin 08/23/2025 9:13 PM > Dictated by Dielectric Embossing Machine Operator I, Kandice Vail have personally reviewed and interpreted this examination/study. > Interpreting Provider: Kandice Vail on 08/23/2025 10:27 PM Narrative 08/23/2025 10:27 PM CDT PROCEDURE: CT CHEST ABDOMEN PELVIS W CONT, DATE/TIME OF EXAM: 08/23/2025 8:15 PM, LOCATION [facility] INDICATION: G91.1: Obstructive hydrocephalus (HCC) ADDITIONAL CLINICAL INFORMATION: Ordering Provider Reason For Exam: obstructive hydrocephalus, possible new brain mass, evaluate for metastasis COMPARISON: None. TECHNIQUE: CT of the chest, abdomen, and pelvis was performed after the uneventful administration of 100 mL of Isovue 370 intravenous contrast according to standard protocol. Findings: Chest: Lower Neck and Axillae: Normal. Lungs: Left upper lobe mass measuring 3.7 x 2.4 x 3.0 cm (series 4, image 26; series 6, image 32) concerning for primary malignancy. Additional satellite nodules are seen, which are endobronchial within the left upper lobe measuring up to 1.2 cm which could represent metastasis disease. Small pulmonary nodules are seen within the contralateral lung. For reference a 2 mm nodule in the right lower lobe (series 4 image 72) a 3 mm nodule in the right middle lobe (series 4 image 54). No pleural fluid or pneumothorax is present. Heart and Pericardium: The cardiac chambers are normal in size. Small volume pericardial fluid is present. Mild coronary artery atherosclerosis. Mediastinum and Caitlyn: Multiple mediastinal enlarged lymph node. Including multiple enlarged lymph nodes in the prevascular region measuring up to 1.2 cm. A right paratracheal lymph node measuring 1.2 cm (series 3 image 36). Necrotic a small left hilar lymph nodes are seen. Thoracic Vasculature: The aorta and its branch vessels are atherosclerotic. Abdomen/pelvis: Liver: A subcentimeter hypoattenuating hepatic lesion is too small to characterize, but likely represents a hepatic cyst. Focal fatty infiltration of the falciform ligament. Gallbladder and Bile Ducts: A gallstone is seen. No wall thickening or pericholecystic fluid. No intrahepatic or extrahepatic biliary dilatation. Spleen: Hypodensity in the posterior aspect of the spleen could represent prior infarct. Pancreas: Small cystic lesions are seen throughout the pancreas measuring up to 5 mm which could represent side branch intraductal papillary mucinous neoplasms. Adrenals: Normal. Kidneys: The kidneys enhance homogenously. No nephrolithiasis or hydronephrosis. Gastrointestinal: Small hiatal hernia. Postoperative changes in the stomach. No evidence of small or large bowel dilatation. Mesentery/Peritoneum/Retroperitoneum: No free intraperitoneal air. No free fluid in the abdomen or pelvis. Bladder: Normal. Reproductive Organs: There is fluid within the uterus endometrial cavity. Abdominal Vasculature: Atherosclerotic calcification of the aorta and its branch vessels. Bones: Bone windows demonstrate no suspicious lytic or blastic lesions. The visible osseous structures are intact. Degenerative changes are seen in the spine. Chronic fracture of the right posterior ribs. Soft tissues: Asymmetry of the right breast tissue, recommend correlation with mammography. Procedure Note Kandice Waldrop MD - 08/23/2025 PROCEDURE: CT CHEST ABDOMEN PELVIS W CONT, DATE/TIME OF EXAM:08/23/2025 8:15 PM, LOCATION [facility] INDICATION: G91.1: Obstructive hydrocephalus (HCC) ADDITIONAL CLINICAL INFORMATION: Ordering Provider Reason For Exam: obstructive hydrocephalus, possiblenew brain mass, evaluate for metastasis COMPARISON: None. TECHNIQUE: CT of the chest, abdomen, and pelvis was performed after the uneventful administration of 100 mL of Isovue 370 intravenous contrast according to standard protocol. Findings: Chest: Lower Neck and Axillae: Normal. Lungs: Left upper lobe mass measuring 3.7 x 2.4 x 3.0 cm (series 4, image 26; series 6, image 32) concerning for primary malignancy. Additionalsatellite nodules are seen, which are endobronchial within the left upper lobe measuring up to 1.2 cm which could represent metastasis disease. Small pulmonary nodules are seen within the contralateral lung. For reference a2 mm nodule in the right lower lobe (series 4 image 72) a 3 mm nodule inthe right middle lobe (series 4 image 54). No pleural fluid or pneumothoraxis present. Heart and Pericardium: The cardiac chambers are normal in size. Small volume pericardial fluidis present. Mild coronary artery atherosclerosis. Mediastinum and Caitlyn: Multiple mediastinal enlarged lymph node. Including multiple enlargedlymph nodes in the prevascular region measuring up to 1.2 cm. A right paratracheal lymph node measuring 1.2 cm (series 3 image 36). Necrotic a small left hilar lymph nodes are seen. Thoracic Vasculature: The aorta and its branch vessels are atherosclerotic. Abdomen/pelvis: Liver: A subcentimeter hypoattenuating hepatic lesion is too small to characterize, but likely represents a hepatic cyst. Focal fatty infiltration of the falciform ligament. Gallbladder and Bile Ducts: A gallstone is seen. No wall thickening or pericholecystic fluid. No intrahepatic or extrahepatic biliary dilatation. Spleen: Hypodensity in the posterior aspect of the spleen could represent prior infarct. Pancreas: Small cystic lesions are seen throughout the pancreas measuring up to 5mm which could represent side branch intraductal papillary mucinousneoplasms. Adrenals: Normal. Kidneys: The kidneys enhance homogenously. No nephrolithiasis or hydronephrosis. Gastrointestinal: Small hiatal hernia. Postoperative changes in the stomach. No evidenceof small or large bowel dilatation. Mesentery/Peritoneum/Retroperitoneum: No free intraperitoneal air. No free fluid in the abdomen or pelvis. Bladder: Normal. Reproductive Organs: There is fluid within the uterus endometrial cavity. Abdominal Vasculature: Atherosclerotic calcification of the aorta and its branch vessels. Bones: Bone windows demonstrate no suspicious lytic or blastic lesions. The visible osseous structures are intact. Degenerative changes are seen inthe spine. Chronic fracture of the right posterior ribs. Soft tissues: Asymmetry of the right breast tissue, recommend correlation with mammography. Impression: 1.Left upper lobe mass measuring up to 3.7 cm concerning for primary malignancy. Mediastinal lymphadenopathy and multiple additionalbilateral pulmonary nodules concerning for metastatic disease. 2.Small-volume pericardial fluid. 3.Cholelithiasis without evidence of acute cholecystitis. 4.Fluid within the endometrial cavity. Correlation with pelvicultrasound and MEDICAL ADMINISTRATIVE ASSISTANT consultation is recommended. 5.Small cystic lesions within the pancreas measuring up to 5 mm whichcould represent side branch intraductal papillary mucinous neoplasms. 6.Asymmetry of the right breast tissue, recommend correlation with mammography. Report dictated by Melissa Chapin MD (IR/DR resident). > Dictated by Melissa Chapin 08/23/2025 9:13 PM > Dictated by Dielectric Embossing Machine Operator I, Kandice Vail have personally reviewed and interpreted this examination/study. > Interpreting Provider: Kandice Vail on 08/23/2025 10:27 PM us Brandon Bee MD CT ORDERABLES Final Result * (ABNORMAL) CBC W AUTO DIFFERENTIAL (08/23/2025 6:51 PM CDT) WBC 12.3(H) 4.0 - 10.7 x10E9/L 08/23/2025 7:20 PM [facility] RBC Count 4.92 3.90 - 5.20 x10E12/L 08/23/2025 7:20 PM [facility] Hemoglobin 15.1 11.9 - 15.8 g/dL 08/23/2025 7:20 PM [facility] Hematocrit 43.2 34.8 - 46.1 % 08/23/2025 7:20 PM [facility] MCV 87.8 80.0 - 98.0 fL 08/23/2025 7:20 PM T [facility] MCH 30.7 26.7 - 33.6 pg 08/23/2025 7:20 PM [facility] MCHC 35.0 31.7 - 36.3 g/dL 08/23/2025 7:20 PM [facility] RDW-CV 12.1 11.3 - 14.8 % 08/23/2025 7:20 PM [facility] Platelet Count 263 150 - 420 x10E9/L 08/23/2025 7:20 PM [facility] MPV 9.3 7.8 - 11.4 fL 08/23/2025 7:20 PM [facility] Neutrophil % 88.5(H) 41.0 - 74.0 % 08/23/2025 7:20 PM [facility] Lymphocyte % 8.3(L) 17.0 - 47.0 % 08/23/2025 7:20 PM [facility] Monocyte % 2.4(L) 3.0 - 11.0 % 08/23/2025 7:20 PM [facility] Eosinophil % 0.1 0.0 - 7.0 % 08/23/2025 7:20 PM [facility] Basophil % 0.2 0.0 - 1.6 % 08/23/2025 7:20 PM [facility] Immature Granulocytes % 0.5 0.0 - 1.0 % 08/23/2025 7:20 PM [facility] Neutrophil Absolute 10.92(H) 1.60 - 7.50 x10E9/L 08/23/2025 7:20 PM [facility] Lymphocyte Absolute 1.02 1.00 - 4.40 x10E9/L 08/23/2025 7:20 PM [facility] Monocyte Absolute 0.29 0.15 - 1.00 x10E9/L 08/23/2025 7:20 PM [facility] Eosinophil Absolute 0.01 0.00 - 0.60 x10E9/L 08/23/2025 7:20 PM [facility] Basophil Absolute 0.02 0.00 - 0.13 x10E9/L 08/23/2025 7:20 PM [facility] Blood BLOOD SPECIMEN / Unknown Venipuncture / Unknown 08/23/2025 6:51 PM CDT 08/23/2025 7:02 PM CDT us Brandon Bee MD LAB - HEMATOLOGY ORDERABLES F inal Result [facility] [address] [place] [address], [facility] [phone] * (ABNORMAL) COMPREHENSIVE METABOLIC PANEL (08/23/2025 6:51 PM [facility]) BUN 21 7 - 26 mg/dL 08/23/2025 7:30 PM [facility] Creatinine 0.67 0.56 - 0.96 mg/dL 08/23/2025 7:30 PM [facility] Sodium 141 136 - 145 mmol/L 08/23/2025 7:30 PM [facility] Potassium 3.7 3.5 - 4.5 mmol/L 08/23/2025 7:30 PM [facility] Chloride 106 98 - 107 mmol/L 08/23/2025 7:30 PM [facility] CO2 24 22 - 29 mmol/L 08/23/2025 7:30 PM [facility] Glucose 114(H) 70 - 99 mg/dL 08/23/2025 7:30 PM [facility] Calcium 9.1 8.4 - 10.2 mg/dL 08/23/2025 7:30 PM [facility] Protein Total 7.8 6.0 - 8.3 g/dL 08/23/2025 7:30 PM [facility] Albumin 4.3 3.4 - 5.0 g/dL 08/23/2025 7:30 PM [facility] Bilirubin Total 1.0 0.2 - 1.2 mg/dL 08/23/2025 7:30 PM [facility] Alkaline Phosphatase 97 40 - 150 U/L 08/23/2025 7:30 PM [facility] ALT 14 5 - 55 U/L 08/23/2025 7:30 PM [facility] AST 15 5 - 34 U/L 08/23/2025 7:30 PM [facility] Anion Gap 11 6 - 16 08/23/2025 7:30 PM [facility] BUN/Creatinine Ratio 31(H) 7 - 23 08/23/2025 7:30 PM [facility] Osmolality Calculated 296(H) 275 - 295 mOsm/kg 08/23/2025 7:30 PM CDT [facility] Albumin/Globulin Ratio 1.2 1.1 - 2.3 08/23/2025 7:30 PM CDT [facility] eGFR by CKD-EPI >90 >=90 mL/min/1.7 3 m2 08/23/2025 7:30 PM CDT [facility] Comment:Estimated Glomerular Filtration Rate (eGFR) calculated using the CKD-EPI Creatinine Equation (2020), per the National Kidney Foundation and [place] [employer]ph[employer] recommendations. 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 Comfort Measures: yes * LIMITED RESUSCITATION-PRIOR AND AFTER ARREST Date Activated Date Inactivated Comments 09/02/2025 12:19 PM 09/05/2025 4:41 PM Question Answer Comments Limited Resuscitation: No Chest Compress ionNo Intubation, No Invasive Ventilation * Full Code Date Activated Date Inactivated Comments 08/23/2025 10:39 PM 09/02/2025 12:19 PM Healthcare Agents on File Name Relationship Healthcare Agent Relationshi p Communication Nila Proctor Sister Power of Lehr Stripper (POA) Care Teams Advertising Project Manager Relationship Specialty Start Date End Date Yris Rodriguez MD [address] [place] [id number] PCP - General Internal Medicine 09/21/25
[2025-09-21 15:02] VITALS: BP 103/73; PULSE 93; RESP 12; O2SAT 97
[2025-09-21 15:22] LABS: Troponin I < 0.012 ng/mL (0.000-0.034)
--- NOTE | 2025-09-21 16:31 | PCCCNOTE ---
Called to the ED to set pt up on Hospice care. Pt.'s sister Nila Proctor([phone]) is her POA. I spoke with her and she would like the pt to go back to [facility]. I spoke with Alexus with [facility] and I called Shahnaz with [facility] [place]. Mis from [facility] came to evaluate pt, she does meet for hospice, but does not meet GIP criteria. Shahnaz from [facility] [place], returned call and pt. is able to return to [facility] [place] on Hospice.
[2025-09-21 16:33] VITALS: BP 113/91; PULSE 91; RESP 19; O2SAT 98
[2025-09-21 18:59] VITALS: BP 97/80; PULSE 91; RESP 17; O2SAT 97
== END 2025-09-21 18:59 | disposition hospice, home (50) ==
PROVIDERS: Emergency Provider Family Medicine
DX: Z04.3 Encounter for examination and observation following other accident (principal); R29.6 Repeated falls; I48.0 Paroxysmal atrial fibrillation; C79.31 Secondary malignant neoplasm of brain; C34.90 Malignant neoplasm of unspecified part of unspecified bronchus or lung; W19.XXXA Unspecified fall, initial encounter
CPT/HCPCS: 36415; 70450; 80053; 81001; 84484; 85025; 85055; 93005; 96361; 96374; 99284; J0616; J7030